=== PATIENT | male | born 1945 | race Caucasian/White ===

== ENCOUNTER 2022-04-08 18:19 | Outpatient (RCR) | payer MEDICARE, BC, SELFPAY ==
[2022-04-08 20:11] LABS: PSA Diagnostic* 0.12 ng/mL (0.10-4.00)
== END 2023-03-29 23:00 | disposition home or self-care (01) ==
LOC: LAB 18:19
PROVIDERS: PCP Internal Medicine; Visit Provider Internal Medicine
DX: C61 Malignant neoplasm of prostate (principal)
CPT/HCPCS: 36415; 84153

== ENCOUNTER 2022-04-15 11:40 | Outpatient (CLI) | payer MEDICARE, BC, SELFPAY ==
[2022-04-15 14:01] LABS: Chloride* 98 mmol/L (96-114)
[2022-04-15 14:02] LABS: Potassium* 4.3 mmol/L (3.6-5.1); Sodium* 133 mmol/L (135-149)
[2022-04-15 14:04] LABS: Carbon Dioxide* 28 mmol/L (20-32); Creatinine* 1.2 mg/dL (0.5-1.5); Estimated Glomerular Filt Rate 62 ml/min
[2022-04-15 14:05] LABS: Blood Urea Nitrogen* 18 mg/dL (7-30); Calcium* 9.1 mg/dL (8.4-10.6); Glucose* 283 mg/dL (60-115)
== END 2022-04-15 11:41 | disposition home or self-care (01) ==
PROVIDERS: PCP Family Medicine; Visit Provider Family Medicine
DX: R53.83 Other fatigue (principal); E11.9 Type 2 diabetes mellitus without complications; F41.9 Anxiety disorder, unspecified
CPT/HCPCS: 80048; 84443

== ENCOUNTER 2022-05-07 07:59 | Outpatient (CLI) | payer MEDICARE, BC, SELFPAY | END 2022-05-07 08:00 | disposition home or self-care (01) | PROVIDERS: PCP Family Medicine; Visit Provider Nurse Practitioner Family | DX: E11.622 Type 2 diabetes mellitus with other skin ulcer (principal); I87.312 Chronic venous hypertension (idiopathic) with ulcer of left lower extremity; L97.829 Non-pressure chronic ulcer of other part of left lower leg with unspecified severity; Z79.4 Long term (current) use of insulin | CPT/HCPCS: 11104; 88305; 99213 ==

== ENCOUNTER 2022-05-12 12:14 | Outpatient (CLI) | payer MEDICARE, BC, MEDICAID, SELFPAY | END 2022-05-12 12:15 | disposition home or self-care (01) | LOC: WOUND 12:15 | PROVIDERS: PCP Family Medicine; Visit Provider Nurse Practitioner Family | DX: E11.622 Type 2 diabetes mellitus with other skin ulcer (principal); I87.2 Venous insufficiency (chronic) (peripheral); L97.829 Non-pressure chronic ulcer of other part of left lower leg with unspecified severity | CPT/HCPCS: 99213 ==

== ENCOUNTER 2022-05-19 10:12 | Outpatient (CLI) | payer MEDICARE, BC, MEDICAID, SELFPAY | END 2022-05-19 10:13 | disposition home or self-care (01) | LOC: WOUND 10:12 | PROVIDERS: PCP Family Medicine; Visit Provider Nurse Practitioner Family | DX: E11.622 Type 2 diabetes mellitus with other skin ulcer (principal); I87.2 Venous insufficiency (chronic) (peripheral); I87.312 Chronic venous hypertension (idiopathic) with ulcer of left lower extremity; L97.822 Non-pressure chronic ulcer of other part of left lower leg with fat layer exposed | CPT/HCPCS: 97597 ==

== ENCOUNTER 2022-06-02 09:32 | Outpatient (CLI) | payer MEDICARE, MEDICAID, BC, SELFPAY | END 2022-06-02 09:33 | disposition home or self-care (01) | LOC: WOUND 09:32 | PROVIDERS: PCP Family Medicine; Visit Provider Nurse Practitioner Family | DX: E11.622 Type 2 diabetes mellitus with other skin ulcer (principal); E11.43 Type 2 diabetes mellitus with diabetic autonomic (poly)neuropathy; S99.822A Other specified injuries of left foot, initial encounter; L60.2 Onychogryphosis; L60.0 Ingrowing nail; L60.3 Nail dystrophy | CPT/HCPCS: 11730; 99212 ==

== ENCOUNTER 2022-06-16 09:58 | Outpatient (CLI) | payer MEDICARE, MEDICAID, BC, SELFPAY | END 2022-06-16 09:59 | disposition home or self-care (01) | LOC: WOUND 09:59 | PROVIDERS: PCP Family Medicine; Visit Provider Nurse Practitioner Family | DX: E11.621 Type 2 diabetes mellitus with foot ulcer (principal); E11.43 Type 2 diabetes mellitus with diabetic autonomic (poly)neuropathy; S99.822A Other specified injuries of left foot, initial encounter; R05.3 Chronic cough | CPT/HCPCS: 97597 ==

== ENCOUNTER 2022-07-07 14:52 | Outpatient (CLI) | payer MEDICARE, MEDICAID, BC, SELFPAY | END 2022-07-07 14:53 | disposition home or self-care (01) | LOC: WOUND 14:54 | PROVIDERS: PCP Family Medicine; Visit Provider Nurse Practitioner Family | DX: E11.621 Type 2 diabetes mellitus with foot ulcer (principal); E11.43 Type 2 diabetes mellitus with diabetic autonomic (poly)neuropathy; S99.822A Other specified injuries of left foot, initial encounter; Z79.4 Long term (current) use of insulin | CPT/HCPCS: 99213 ==

== ENCOUNTER 2022-09-11 08:01 | Outpatient (CLI) | payer MEDICARE, MEDICAID, BC, SELFPAY | END 2022-09-11 08:02 | disposition home or self-care (01) | LOC: WOUND 08:01 | PROVIDERS: PCP Family Medicine; Visit Provider Physician Assistant Surgical | DX: E11.621 Type 2 diabetes mellitus with foot ulcer (principal); L97.522 Non-pressure chronic ulcer of other part of left foot with fat layer exposed; Z79.4 Long term (current) use of insulin | CPT/HCPCS: 11042 ==

== ENCOUNTER 2022-09-18 09:54 | Outpatient (CLI) | payer MEDICARE, BC, MEDICAID, SELFPAY | END 2022-09-18 09:55 | disposition home or self-care (01) | LOC: WOUND 09:55 | PROVIDERS: PCP Family Medicine; Visit Provider Physician Assistant Surgical | DX: E11.621 Type 2 diabetes mellitus with foot ulcer (principal); L97.522 Non-pressure chronic ulcer of other part of left foot with fat layer exposed; Z79.4 Long term (current) use of insulin | CPT/HCPCS: 11042 ==

== ENCOUNTER 2022-11-20 07:58 | Outpatient (CLI) | payer MEDICARE, MEDICAID, BC, SELFPAY | END 2022-11-20 07:59 | disposition home or self-care (01) | LOC: WOUND 07:58 | PROVIDERS: PCP Family Medicine; Visit Provider Physician Assistant Surgical | DX: E11.621 Type 2 diabetes mellitus with foot ulcer (principal); L97.522 Non-pressure chronic ulcer of other part of left foot with fat layer exposed; Z79.4 Long term (current) use of insulin | CPT/HCPCS: 11042; 99213 ==

== ENCOUNTER 2022-11-27 08:02 | Outpatient (CLI) | payer MEDICARE, MEDICAID, BC, SELFPAY | END 2022-11-27 08:03 | disposition home or self-care (01) | LOC: WOUND 08:02 | PROVIDERS: PCP Family Medicine; Visit Provider Physician Assistant Surgical | DX: E11.621 Type 2 diabetes mellitus with foot ulcer (principal); L97.522 Non-pressure chronic ulcer of other part of left foot with fat layer exposed; Z79.4 Long term (current) use of insulin | CPT/HCPCS: 11042 ==

== ENCOUNTER 2022-12-04 10:06 | Outpatient (CLI) | payer MEDICARE, MEDICAID, BC, SELFPAY | END 2022-12-04 10:07 | disposition home or self-care (01) | LOC: WOUND 10:06 | PROVIDERS: PCP Family Medicine; Visit Provider Physician Assistant Surgical | DX: E11.621 Type 2 diabetes mellitus with foot ulcer (principal); L97.522 Non-pressure chronic ulcer of other part of left foot with fat layer exposed; Z79.4 Long term (current) use of insulin | CPT/HCPCS: 11042 ==

== ENCOUNTER 2022-12-18 09:58 | Outpatient (CLI) | payer MEDICARE, MEDICAID, BC, SELFPAY | END 2022-12-18 09:59 | disposition home or self-care (01) | LOC: WOUND 09:58 | PROVIDERS: PCP Family Medicine; Visit Provider Physician Assistant Surgical | DX: E11.621 Type 2 diabetes mellitus with foot ulcer (principal); L97.521 Non-pressure chronic ulcer of other part of left foot limited to breakdown of skin; Z79.4 Long term (current) use of insulin | CPT/HCPCS: 97602; 99213 ==

== ENCOUNTER 2022-12-31 08:35 | Outpatient (CLI) | payer MEDICARE, BC, SELFPAY | END 2022-12-31 08:36 | disposition home or self-care (01) | LOC: NFLDREF 01-04 11:09 | PROVIDERS: PCP Family Medicine; Referring Provider Family Medicine; Visit Provider Family Medicine | DX: E78.5 Hyperlipidemia, unspecified (principal) | CPT/HCPCS: 80061 ==

== ENCOUNTER 2023-02-10 12:18 | Outpatient (REF) | payer MEDICARE, BC, SELFPAY ==
[2023-02-10 13:31] LABS: PSA Diagnostic* 0.14 ng/mL (0.10-4.00)
== END 2023-02-10 12:19 | disposition home or self-care (01) ==
LOC: NPINS 12:18
PROVIDERS: PCP Family Medicine; Visit Provider Internal Medicine
DX: C61 Malignant neoplasm of prostate (principal)
CPT/HCPCS: 84153

== ENCOUNTER 2023-04-01 08:08 | Outpatient (CLI) | payer MEDICARE, BC, MEDICAID, SELFPAY | END 2023-04-01 08:09 | disposition home or self-care (01) | LOC: WOUND 08:09 | PROVIDERS: PCP Family Medicine; Visit Provider Nurse Practitioner Family | DX: E11.621 Type 2 diabetes mellitus with foot ulcer (principal); L97.512 Non-pressure chronic ulcer of other part of right foot with fat layer exposed; Z79.4 Long term (current) use of insulin | CPT/HCPCS: 97597; 99213 ==

== ENCOUNTER 2023-04-13 10:35 | Outpatient (CLI) | payer MEDICARE, BC, MEDICAID, SELFPAY | END 2023-04-13 10:36 | disposition home or self-care (01) | LOC: WOUND 10:36 | PROVIDERS: PCP Family Medicine; Visit Provider Nurse Practitioner Family | DX: E11.621 Type 2 diabetes mellitus with foot ulcer (principal); L97.512 Non-pressure chronic ulcer of other part of right foot with fat layer exposed; Z79.4 Long term (current) use of insulin | CPT/HCPCS: 11042 ==

== ENCOUNTER 2023-04-26 09:47 | Outpatient (CLI) | payer MEDICARE, BC, MEDICAID, SELFPAY | END 2023-04-26 09:48 | disposition home or self-care (01) | LOC: WOUND 09:47 | PROVIDERS: PCP Family Medicine; Visit Provider Nurse Practitioner Family | DX: E11.621 Type 2 diabetes mellitus with foot ulcer (principal); L97.512 Non-pressure chronic ulcer of other part of right foot with fat layer exposed; Z79.4 Long term (current) use of insulin | CPT/HCPCS: 11042 ==

== ENCOUNTER 2023-05-11 10:04 | Outpatient (CLI) | payer MEDICARE, BC, MEDICAID, SELFPAY | END 2023-05-11 10:05 | disposition home or self-care (01) | LOC: WOUND 10:04 | PROVIDERS: PCP Family Medicine; Visit Provider Nurse Practitioner Family | DX: E11.621 Type 2 diabetes mellitus with foot ulcer (principal); L97.512 Non-pressure chronic ulcer of other part of right foot with fat layer exposed; Z79.4 Long term (current) use of insulin | CPT/HCPCS: 11042 ==

== ENCOUNTER 2023-05-25 10:05 | Outpatient (CLI) | payer MEDICARE, BC, MEDICAID, SELFPAY | END 2023-05-25 10:06 | disposition home or self-care (01) | LOC: WOUND 10:06 | PROVIDERS: PCP Family Medicine; Visit Provider Nurse Practitioner Family | DX: E11.621 Type 2 diabetes mellitus with foot ulcer (principal); L97.512 Non-pressure chronic ulcer of other part of right foot with fat layer exposed; Z79.4 Long term (current) use of insulin | CPT/HCPCS: 97597 ==

== ENCOUNTER 2023-06-08 10:07 | Outpatient (CLI) | payer MEDICARE, MEDICAID, BC, SELFPAY | END 2023-06-08 10:08 | disposition home or self-care (01) | LOC: WOUND 10:08 | PROVIDERS: PCP Family Medicine; Visit Provider Nurse Practitioner Family | DX: E11.621 Type 2 diabetes mellitus with foot ulcer (principal); L97.512 Non-pressure chronic ulcer of other part of right foot with fat layer exposed; Z79.4 Long term (current) use of insulin | CPT/HCPCS: 97597 ==

== ENCOUNTER 2023-06-22 09:57 | Outpatient (CLI) | payer MEDICARE, BC, MEDICAID, SELFPAY | END 2023-06-22 09:58 | disposition home or self-care (01) | LOC: WOUND 09:58 | PROVIDERS: PCP Family Medicine; Visit Provider Nurse Practitioner Family | DX: E11.621 Type 2 diabetes mellitus with foot ulcer (principal); L97.512 Non-pressure chronic ulcer of other part of right foot with fat layer exposed; Z79.4 Long term (current) use of insulin | CPT/HCPCS: 97597 ==

== ENCOUNTER 2023-07-06 10:03 | Outpatient (CLI) | payer MEDICARE, BC, MEDICAID, SELFPAY | END 2023-07-06 10:04 | disposition home or self-care (01) | LOC: WOUND 10:03 | PROVIDERS: PCP Family Medicine; Visit Provider Nurse Practitioner Family | DX: E11.621 Type 2 diabetes mellitus with foot ulcer (principal); L97.512 Non-pressure chronic ulcer of other part of right foot with fat layer exposed; Z79.4 Long term (current) use of insulin | CPT/HCPCS: 97597 ==

== ENCOUNTER 2023-07-20 10:08 | Outpatient (CLI) | payer MEDICARE, BC, MEDICAID, SELFPAY | END 2023-07-20 10:09 | disposition home or self-care (01) | LOC: WOUND 10:08 | PROVIDERS: PCP Family Medicine; Visit Provider Nurse Practitioner Family | DX: E11.621 Type 2 diabetes mellitus with foot ulcer (principal); L97.512 Non-pressure chronic ulcer of other part of right foot with fat layer exposed; Z79.4 Long term (current) use of insulin | CPT/HCPCS: 11042 ==

== ENCOUNTER 2023-07-26 11:49 | Outpatient (CLI) | payer MEDICARE, BC, SELFPAY | END 2023-07-26 11:50 | disposition home or self-care (01) | PROVIDERS: PCP Family Medicine; Visit Provider Family Medicine | DX: E78.2 Mixed hyperlipidemia (principal); E66.9 Obesity, unspecified; E11.610 Type 2 diabetes mellitus with diabetic neuropathic arthropathy | CPT/HCPCS: 80048 ==

== ENCOUNTER 2023-08-03 10:04 | Outpatient (CLI) | payer MEDICARE, BC, MEDICAID, SELFPAY | END 2023-08-03 10:05 | disposition home or self-care (01) | LOC: WOUND 10:05 | PROVIDERS: PCP Family Medicine; Visit Provider Nurse Practitioner Family | DX: E11.621 Type 2 diabetes mellitus with foot ulcer (principal); L97.512 Non-pressure chronic ulcer of other part of right foot with fat layer exposed; Z79.4 Long term (current) use of insulin | CPT/HCPCS: 15271; 15275; Q4151 ==

== ENCOUNTER 2023-08-17 09:58 | Outpatient (CLI) | payer MEDICARE, BC, MEDICAID, SELFPAY | END 2023-08-17 09:59 | disposition home or self-care (01) | LOC: WOUND 09:59 | PROVIDERS: PCP Family Medicine; Visit Provider Nurse Practitioner Family | DX: E11.621 Type 2 diabetes mellitus with foot ulcer (principal); L97.512 Non-pressure chronic ulcer of other part of right foot with fat layer exposed; Z79.4 Long term (current) use of insulin | CPT/HCPCS: 15275; Q4151 ==

== ENCOUNTER 2023-08-26 11:08 | Outpatient (CLI) | payer MEDICARE, BC, MEDICAID, SELFPAY | END 2023-08-26 11:09 | disposition home or self-care (01) | LOC: WOUND 11:08 | PROVIDERS: PCP Family Medicine; Visit Provider Nurse Practitioner Family | DX: E11.621 Type 2 diabetes mellitus with foot ulcer (principal); L97.512 Non-pressure chronic ulcer of other part of right foot with fat layer exposed; Z79.4 Long term (current) use of insulin | CPT/HCPCS: 29581 ==

== ENCOUNTER 2023-09-14 09:58 | Outpatient (CLI) | payer MEDICARE, BC, SELFPAY | END 2023-09-14 09:59 | disposition home or self-care (01) | LOC: WOUND 09:58 | PROVIDERS: PCP Family Medicine; Visit Provider Nurse Practitioner Family | DX: E11.621 Type 2 diabetes mellitus with foot ulcer (principal); L97.512 Non-pressure chronic ulcer of other part of right foot with fat layer exposed; L08.89 Other specified local infections of the skin and subcutaneous tissue; B95.2 Enterococcus as the cause of diseases classified elsewhere; Z79.4 Long term (current) use of insulin | CPT/HCPCS: 87070; 87186; 97597 ==

== ENCOUNTER 2023-09-16 12:24 | Outpatient (CLI) | payer MEDICARE, BC, SELFPAY | END 2023-09-16 12:25 | disposition home or self-care (01) | LOC: FBOREF 12:24 | PROVIDERS: PCP Family Medicine; Visit Provider Family Medicine | DX: E78.2 Mixed hyperlipidemia (principal) | CPT/HCPCS: 80061 ==

== ENCOUNTER 2023-11-16 08:11 | Outpatient (CLI) | payer MEDICARE, BC, SELFPAY | END 2023-11-16 08:12 | disposition home or self-care (01) | LOC: WOUND 08:11 | PROVIDERS: PCP Family Medicine; Visit Provider Nurse Practitioner Family | DX: E11.621 Type 2 diabetes mellitus with foot ulcer (principal); L97.512 Non-pressure chronic ulcer of other part of right foot with fat layer exposed; L97.518 Non-pressure chronic ulcer of other part of right foot with other specified severity; Z79.4 Long term (current) use of insulin | CPT/HCPCS: 11042; 97602; G0463 ==

== ENCOUNTER 2023-11-23 11:41 | Outpatient (CLI) | payer MEDICARE, BC, SELFPAY | END 2023-11-23 11:42 | disposition home or self-care (01) | LOC: WOUND 11:41 | PROVIDERS: PCP Family Medicine; Visit Provider Physician Assistant | DX: E11.621 Type 2 diabetes mellitus with foot ulcer (principal); L97.512 Non-pressure chronic ulcer of other part of right foot with fat layer exposed; Z79.4 Long term (current) use of insulin | CPT/HCPCS: 11042 ==

== ENCOUNTER 2023-11-30 13:32 | Outpatient (CLI) | payer MEDICARE, BC, SELFPAY | END 2023-11-30 13:33 | disposition home or self-care (01) | LOC: WOUND 13:33 | PROVIDERS: PCP Family Medicine; Visit Provider Nurse Practitioner Family | DX: E11.621 Type 2 diabetes mellitus with foot ulcer (principal); L97.512 Non-pressure chronic ulcer of other part of right foot with fat layer exposed; Z79.4 Long term (current) use of insulin | CPT/HCPCS: 11042 ==

== ENCOUNTER 2023-12-07 11:35 | Outpatient (CLI) | payer MEDICARE, BC, SELFPAY | END 2023-12-07 11:36 | disposition home or self-care (01) | LOC: WOUND 11:36 | PROVIDERS: PCP Family Medicine; Visit Provider Nurse Practitioner Family | DX: E11.621 Type 2 diabetes mellitus with foot ulcer (principal); L97.512 Non-pressure chronic ulcer of other part of right foot with fat layer exposed; Z79.4 Long term (current) use of insulin | CPT/HCPCS: 15275; Q4151 ==

== ENCOUNTER 2023-12-14 09:04 | Outpatient (CLI) | payer MEDICARE, BC, SELFPAY | END 2023-12-14 09:05 | disposition home or self-care (01) | LOC: WOUND 09:04 | PROVIDERS: PCP Family Medicine; Visit Provider Nurse Practitioner Family | DX: E11.621 Type 2 diabetes mellitus with foot ulcer (principal); L97.512 Non-pressure chronic ulcer of other part of right foot with fat layer exposed; Z79.4 Long term (current) use of insulin | CPT/HCPCS: 97597 ==

== ENCOUNTER 2023-12-21 14:11 | Outpatient (CLI) | payer MEDICARE, BC, SELFPAY | END 2023-12-21 14:12 | disposition home or self-care (01) | LOC: WOUND 14:11 | PROVIDERS: PCP Family Medicine; Visit Provider Nurse Practitioner Family | DX: E11.621 Type 2 diabetes mellitus with foot ulcer (principal); L97.512 Non-pressure chronic ulcer of other part of right foot with fat layer exposed; Z79.4 Long term (current) use of insulin | CPT/HCPCS: 11042 ==

== ENCOUNTER 2023-12-28 14:03 | Outpatient (CLI) | payer MEDICARE, BC, SELFPAY | END 2023-12-28 14:04 | disposition home or self-care (01) | LOC: WOUND 14:03 | PROVIDERS: PCP Family Medicine; Visit Provider Nurse Practitioner Family | DX: E11.621 Type 2 diabetes mellitus with foot ulcer (principal); L97.512 Non-pressure chronic ulcer of other part of right foot with fat layer exposed; Z79.4 Long term (current) use of insulin | CPT/HCPCS: 11042 ==

== ENCOUNTER 2024-01-04 13:54 | Outpatient (CLI) | payer MEDICARE, BC, SELFPAY | END 2024-01-04 13:55 | disposition home or self-care (01) | LOC: WOUND 13:54 | PROVIDERS: PCP Family Medicine; Visit Provider Nurse Practitioner Family | DX: E11.621 Type 2 diabetes mellitus with foot ulcer (principal); L97.512 Non-pressure chronic ulcer of other part of right foot with fat layer exposed; Z79.4 Long term (current) use of insulin; Z79.85 Long-term (current) use of injectable non-insulin antidiabetic drugs | CPT/HCPCS: 97597 ==

== ENCOUNTER 2024-01-11 14:10 | Outpatient (CLI) | payer MEDICARE, BC, SELFPAY | END 2024-01-11 14:11 | disposition home or self-care (01) | LOC: WOUND 14:10 | PROVIDERS: PCP Family Medicine; Visit Provider Nurse Practitioner Family | DX: E11.621 Type 2 diabetes mellitus with foot ulcer (principal); L97.512 Non-pressure chronic ulcer of other part of right foot with fat layer exposed; Z79.4 Long term (current) use of insulin | CPT/HCPCS: 97597 ==

== ENCOUNTER 2024-01-18 13:56 | Outpatient (CLI) | payer MEDICARE, BC, SELFPAY | END 2024-01-18 13:57 | disposition home or self-care (01) | LOC: WOUND 13:56 | PROVIDERS: PCP Family Medicine; Visit Provider Nurse Practitioner Family | DX: E11.621 Type 2 diabetes mellitus with foot ulcer (principal); L97.512 Non-pressure chronic ulcer of other part of right foot with fat layer exposed; Z79.4 Long term (current) use of insulin | CPT/HCPCS: 97602; G0463 ==

== ENCOUNTER 2024-01-25 14:08 | Outpatient (CLI) | payer MEDICARE, BC, SELFPAY | END 2024-01-25 14:09 | disposition home or self-care (01) | LOC: WOUND 14:08 | PROVIDERS: PCP Family Medicine; Visit Provider Family Medicine | DX: E11.621 Type 2 diabetes mellitus with foot ulcer (principal); L97.512 Non-pressure chronic ulcer of other part of right foot with fat layer exposed; Z79.4 Long term (current) use of insulin | CPT/HCPCS: G0463 ==

== ENCOUNTER 2024-02-01 14:06 | Outpatient (CLI) | payer MEDICARE, BC, SELFPAY | END 2024-02-01 14:07 | disposition home or self-care (01) | LOC: WOUND 14:06 | PROVIDERS: PCP Family Medicine; Visit Provider Nurse Practitioner Family | DX: E11.621 Type 2 diabetes mellitus with foot ulcer (principal); L97.512 Non-pressure chronic ulcer of other part of right foot with fat layer exposed; Z79.4 Long term (current) use of insulin | CPT/HCPCS: 97597 ==

== ENCOUNTER 2024-02-07 14:27 | Outpatient (CLI) | payer MEDICARE, BC, SELFPAY | END 2024-02-07 14:28 | disposition home or self-care (01) | LOC: FBOREF 14:28 | PROVIDERS: PCP Family Medicine; Visit Provider Family Medicine | DX: C61 Malignant neoplasm of prostate (principal) | CPT/HCPCS: 84153 ==

== ENCOUNTER 2024-02-08 14:38 | Outpatient (CLI) | payer MEDICARE, BC, SELFPAY | END 2024-02-08 14:39 | disposition home or self-care (01) | LOC: WOUND 14:38 | PROVIDERS: PCP Family Medicine; Visit Provider Nurse Practitioner Family | DX: E11.621 Type 2 diabetes mellitus with foot ulcer (principal); L97.518 Non-pressure chronic ulcer of other part of right foot with other specified severity; Z79.4 Long term (current) use of insulin | CPT/HCPCS: 97602; G0463 ==

== ENCOUNTER 2024-02-15 14:00 | Outpatient (CLI) | payer MEDICARE, BC, SELFPAY | END 2024-02-15 14:01 | disposition home or self-care (01) | LOC: WOUND 14:01 | PROVIDERS: PCP Family Medicine; Visit Provider Nurse Practitioner Family | DX: E11.621 Type 2 diabetes mellitus with foot ulcer (principal); L97.512 Non-pressure chronic ulcer of other part of right foot with fat layer exposed; Z79.4 Long term (current) use of insulin | CPT/HCPCS: G0463 ==

== ENCOUNTER 2024-02-26 19:08 | Emergency (ER) | payer MEDICARE, BC, SELFPAY ==
[2024-02-26] VITALS (16 sets, daily range): BP systolic 106–145; BP diastolic 66–74; PULSE 50–80; RESP 16–18; TEMP 36.4; O2SAT 89–95; BMI 34.3
--- NOTE | 2024-02-26 19:37 | ED_ITS ---
HPI - General Adult General Time Seen by Provider: 19:37 <Jenny Rush MD - Last Filed: 02/26/24 21:38> Date Seen: 02/26/24 <Jenny Rush MD - Last Filed: 02/26/24 21:38> Chief complaint: Weakness <Jenny Rush MD - Last Filed: 02/26/24 21:38> Stated complaint: Lethargy, low BP/pulse <Jenny Rush MD - Last Filed: 02/26/24 21:38> Time Seen by Provider: 02/26/24 19:18 <Jenny Rush MD - Last Filed: 02/26/24 21:38> Source: patient, family and RN notes reviewed <Jenny Rush MD - Last F iled: 02/26/24 21:38> Mode of arrival: ambulatory <Jenny Rush MD - Last Filed: 02/26/24 21:38> Limitations: no limitations <Jenny Rush MD - Last Filed: 02/26/24 21:38> History of Present Illness HPI narrative: This 78-year-old male is accompanied by his clifton for weakness in low blood pressure at home. He was started on tirzepatide injectable about a month ago, took a total of 4 doses. Has not taken a does since a week and a half ago on Wednesday due to its side effects of significant abdominal pain. He had some diarrhea on Wednesday or of this past week but has subsequently stopped. He lost about 17 lb while taking this medicine and his sugars did improve. His notes that he has just been sleeping lately. They have noted no fevers. He is not having any abdominal pain at this time. He has had no nausea or vomiting, when taking the medication did have significantly diminished appetite but was able to still drink. She states he has been sleeping a lot recently. He basically slept most the day. When he got up, felt weak. He did come down the stairs and nearly collapsed going down the stairs he felt so weak. Again, denies any pain. There has been no fevers. He states he is feeling better now. His took his blood pressure at home after this happened and it was in the low 100s for his systolic. <Jenny Rush MD - Last Filed: 02/26/24 21:38> Related Data Home medications: Home Medications ?Medication ?Instructions ?Recorded ?Confirmed ascorbic acid (vitamin C) 1,000 mg 1,000 mg PO DAILY 04/14/22 02/26/24 tablet aspirin 81 mg tablet,delayed 81 mg PO DAILY 04/14/22 02/26/24 release calcium carbonate 600 mg PO DAILY 04/14/22 02/26/24 cholecalciferol (vitamin D3) 25 25 mcg PO QDAY 04/14/22 02/26/24 mcg (1,000 unit) tablet riboflavin (vitamin B2) 50 mg 50 mg PO QDAY 04/15/22 02/26/24 tablet insulin glargine 100 unit/mL (3 60 unit subcut QPM 12/30/23 02/26/24 mL) subcutaneous pen (Basaglar KwikPen U-100 Insulin) Previous Rx's ?Medication ?Instructions ?Recorded oxybutynin chloride 10 mg 10 mg PO DAILY #90 tabs 12/25/22 tablet,extended release 24 hr pen needle, diabetic 31 gauge x #100 ea 12/28/2201/12 (UltiCare Pen Needle) naproxen 500 mg tablet 500 mg PO BID PRN pain #180 tabs 01/06/23 blood-glucose meter,continuous #1 ea 04/16/23 (Dexcom G6 Tile Layer) duloxetine 60 mg capsule,delayed 60 mg PO QDAY #90 caps 07/26/23 release blood-glucose sensor (Dexcom G6 #9 ea 08/05/23 Sensor device) sennosides 8.6 mg-docusate sodium 2 tab-cap (2 x 8.6-50 mg) PO QHS 09/06/23 50 mg tablet #180 tabs blood-glucose transmitter (Dexcom #1 ea 09/17/23 G6 Transmitter device) insulin aspart 10 - 30 unit subcut TID #60 mL 12/10/23 (niacinamide)(U-100) 100 unit/mL(3 mL) subcutaneous pen (Fiasp FlexTouch U-100 Insulin) zolpidem 10 mg tablet 10 mg PO QHS PRN insomnia #90 tabs 12/10/23 atorvastatin 80 mg tablet 80 mg PO QHS #90 tabs 12/14/23 qesezshjeh-kwecqrcdocflt-vpsdlhwi 1 cap PO Q8H PRN pain #30 caps 02/07/24 50 mg-300 mg-40 mg capsule (Fioricet) pregabalin 150 mg capsule 150 mg PO QHS #90 caps 02/07/24 tirzepatide 5 mg/0.5 mL 5 mg (0.5 mL) subcut QWEEK #2 mL 02/07/24 subcutaneous pen injector (Mounjaro) <Jenny Rush MD - Last Filed: 02/26/24 21:38> Allergies/adverse reactions: Allergies Allergy/AdvReac Type Severity Reaction Status Date / Time No Known Drug Allergies Allergy Verified 02/26/24 19:20 <Jenny uRsh MD - Last Filed: 02/26/24 21:38> Review of Systems Status of ROS: Reports: 6 or more systems reviewed and unremarkable except as noted in History and below <Jenny Rush MD - Last Filed: 02/26/24 21:38> [facility] Medical History: Medical History Type 2 diabetes mellitus, with long-term current use of insulin ?E11.9 - Type 2 diabetes mellitus without complications (ICD-10) ?Z79.4 - [facility] (current) use of insulin (ICD-10) COVID-19 ?U07.1 - COVID-19 (ICD-10) Mixed hyperlipidemia ?E78.2 - Mixed hyperlipidemia (ICD-10) Incontinence of urine ?R32 - Unspecified urinary incontinence (ICD-10) Chronic constipation ?K59.09 - Other constipation (ICD-10) 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 (01/03/20) ?E11.610 - Type 2 diabetes mellitus with diabetic neuropathic arthropathy (ICD-10) Traumatic brain injury (2016) ?S06.9X9A - Unspecified intracranial injury with loss of consciousness of unspecified duration, initial encounter (ICD-10) Tobacco use (02/27/13) ?Z72.0 - Tobacco use (ICD-10) Peripheral vascular disease ?I73.9 - Peripheral vascular disease, unspecified (ICD-10) Obesity with body mass index greater than 30 ?E66.9 - Obesity, unspecified (ICD-10) Malignant neoplasm of prostate ?C61 - Malignant neoplasm of prostate (ICD-10) Ischemic stroke (02/2008) ?I63.9 - Cerebral infarction, unspecified (ICD-10) Ischemic necrosis of foot ?I96 - Gangrene, not elsewhere classified (ICD-10) Insomnia ?G47.00 - Insomnia, unspecified (ICD-10) History of traumatic brain injury ?Z87.820 - Personal history of traumatic brain injury (ICD-10) History of transient ischemic attack ?Z86.73 - Personal history of transient ischemic attack (TIA), and cerebral infarction without residual deficits (ICD-10) History of suicidal ideation ?Z86.59 - Personal history of other mental and behavioral disorders (ICD-10) Diabetic ulcer of right midfoot (10/28/17) ?E11.621 - Type 2 diabetes mellitus with foot ulcer (ICD-10) ?L97.419 - Non-pressure chronic ulcer of right heel and midfoot with unspecified severity (ICD-10) Diabetic retinopathy ?E11.319 - Type 2 diabetes mellitus with unspecified diabetic retinopathy without macular edema (ICD-10) Diabetic neuropathy (12/02/12) ?E11.40 - Type 2 diabetes mellitus with diabetic neuropathy, unspecified (ICD-10) Chronic pain ?G89.29 - Other chronic pain (ICD-10) Anxiety (02/27/13) ?F41.9 - Anxiety disorder, unspecified (ICD-10) <Jenny Rush MD - Last Filed: 02/26/24 21:38> Surgical History: Surgical History History of amputation of hallux ?Z89.419 - Acquired absence of unspecified great toe (ICD-10) <Jenny Rush MD - Last Filed: 02/26/24 21:38> Social History: Social History Narrative: , retired, nonsmoker What is your current living situation?: I presently have a place to live Problems where you live: no known problems In the past 12 months, utilities in danger of being shut off: no In past 12 months, lack of transportation kept you from medical appts, meetings, work, or getting things needed for daily living: no In the past 12 mos, have been you worried that your food would run out before you had money to buy more?: never true In the past 12 mos, the food you bought just didn't last and you didn't have money to buy more?: never true Smoking Status: Former smoker How often do you have a drink containing alcohol: monthly or less AUDIT-C Alcohol total score: 1 Non-prescribed substance use: denies use How often does anyone, including family, friends and others, physically hurt you : never How often does anyone, including family, friends and others, insult or talk down to you: never How often does anyone, including family, friends and others, threaten you with harm: never How often does anyone, including family, friends and others, scream or curse at you: never Little interest or pleasure in doing things: more than half the days Feeling down, depressed, or hopeless: not at all <Jenny Rush MD - Last Filed: 02/26/24 21:38> Exam Const: Vital Signs, click to edit/add: Vital Signs - 24 hr 02/26/24 19:15 02/26/24 19:48 Temperature 97.6 F Pulse Rate [Right Pulse Oximeter] 80 Respiratory Rate 18 Blood Pressure [Ri ght Upper Arm] 122/74 Pulse Oximetry 95 92 Oxygen Delivery Me thod Room Air <Jenny Rush MD - Last Filed: 02/26/24 21:38> Vital Signs, click to edit/add: Vital Signs - 24 hr 02/26/24 19:15 02/26/24 19:48 Temperature 97.6 F Pulse Rate [Right Pulse Oximeter] 80 Respiratory Rate 18 Blood Pressure [Ri ght Upper Arm] 122/74 Pulse Oximetry 95 92 Oxygen Delivery Me thod Room Air <Yoan Porras MD - Last Filed: 02/26/24 22:21> Documenting provider has reviewed patient's vital signs: yes <Jenny Rush MD - Last Filed: 02/26/24 21:38> Common normals: no apparent distress, oriented x3, no limitations and alert (but appears tired, stays awake during exam) <Jenny Rush MD - Last Filed: 02/26/24 21:38> General appearance: cooperative, comfortable, well kempt and well developed <Jenny Rush MD - Last Filed: 02/26/24 21:38> Nutritional appearance: overweight <Jenny Rush MD - Last Filed: 02/26/24 21:38> Orientation/consciousness: Yes awake, Yes oriented to person, Yes oriented to place and Yes oriented to time <Jenny Rush MD - Last Filed: 02/26/24 21:38> HENMT: Common normals: normocephalic, head/scalp atraumatic, hearing grossly normal bilaterally, external ears normal and external nose normal <Jenny Rush MD - Last Filed: 02/26/24 21:38> Head and scalp: normocephalic and atraumatic <Jenny Rush MD - Last Filed: 02/26/24 21:38> Face and sinus: normal facial exam and face symmetric <Jenny Suárez MD - Last Filed: 02/26/24 21:38> Nose: external nose normal and nares normal <MD Eran Ogden Last Filed: 02/26/24 21:38> External ear: external ears normal <Jenny Rush MD - Last Filed: 02/26/24 21:38> Mouth: oral and palatal mucosa normal, lip normal and tongue normal <MD Eran Ogden Last Filed: 02/26/24 21:38> Eye: Common normals: PERRL, EOMs intact bilaterally, conjunctivae normal and no scleral icterus <Jenny Rush MD - Last Filed: 02/26/24 21:38> General eye: normal appearance of both eyes <Jenny Rush MD - Last Filed: 02/26/24 21:38> Conjunctiva: conjunctiva(e) normal <Jenny Rush MD - Last Filed: 02/26/24 21:38> Pupil: PERRL <Jenny Rush MD - Last Filed: 02/26/24 21:38> Neck & C-Spine: Common normals: full ROM, no lymphadenopathy, supple, no meningeal signs, no JVD and thyroid normal <Jenny Rush MD - Last Filed: 02/26/24 21:38> Thyroid: thyroid normal <Jenny Rush MD - Last Filed: 02/26/24 21:38> Resp: Common normals: normal respiratory effort, no retractions, no use of accessory muscles, clear to auscultation bilaterally and percussion normal <Jenny Rush MD - Last Filed: 02/26/24 21:38> Auscultation: clear to auscultation bilaterally <Jenny Rush MD - Last Filed: 02/26/24 21:38> Percussion: percussion normal <Jenny Rush MD - Last Filed: 02/26/24 21:38> Cardio: Common normals: no JVD, regular rate, regular rhythm, S1 normal heart sound, S2 normal heart sound, no gallops and no clicks <Jenny Suárez MD - Last Filed: 02/26/24 21:38> Rate: regular rate <Jenny Rush MD - Last Filed: 02/26/24 21:38> Rhythm: regular rhythm <Jenny Rush MD - Last Filed: 02/26/24 21:38> Heart sounds: S1 normal, S2 normal and murmur (soft) systolic <Jenny Rush MD - Last Filed: 02/26/24 21:38> GI: Common normals: Normal to inspection, nondistended, normoactive bowel sounds present, soft to palpation, non-tender, no hepatosplenomegaly and no masses <Jenny Rush MD - Last Filed: 02/26/24 21:38> Palpation: soft and no hepatosplenomegaly <Jenny Rush MD - Last Filed: 02/26/24 21:38> Extremity: Other: right Charcot foot, bandage on lower lateral left leg without surrounding erythema. <Jenny Rush MD - Last Filed: 02/26/24 21:38> Neuro: Isabela Coma Scale: document GCS findings Isabela coma scale eye opening: Spontaneous (4) Isabela coma scale verbal response: Orientated (5) Isabela coma scale motor response: Obey commands (6) [place] coma scale total s core: 15 <Jenny Rush MD - Last Filed: 02/26/24 21:38> [place] Coma Scale: document GCS findings Isabela coma scale total score: 15 <Yoan Porras MD - Last Filed: 02/26/24 22:21> Common normals: oriented x3, moves all extremities and no focal motor deficits <Jenny Rush MD - Last Filed: 02/26/24 21:38> Sensorium/orientation: awake, alert (but appears tired, stays awake during exam), oriented to person, oriented to place and oriented to time <Jenny Rush MD - Last Filed: 02/26/24 21:38> Meningeal signs: no meningeal signs <Jenny Rush MD - Last Filed: 02/26/24 21:38> Psych: Appearance: well kempt <Jenny Rush MD - Last Filed: 02/26/24 21:38> Course Course ED Course: This patient has generalized weakness without any focal symptoms of infection. He has been on 1 of the new weight loss injectables and having symptoms from it. Will do full complement of labs. He is not having any pain anywhere, do not see indication for any imaging at this time. Have recommended that we do the triple viral swab and they do agree. <Jenny Rush MD - Last Filed: 02/26/24 21:38> Reevaluation(s) Time of Reevaluation #2: 21:20 <Jenny Rush MD - Last Filed: 02/26/24 21:38> Reevaluation #2: Patient was sleeping and 93% with a good waveform on room air but will do portable chest x-ray just as part of a workup for weakness since all other labs are looking normal. Still awaiting the portable chest x-ray. Reviewed with and patient that labs are reassuring at this point. COVID is negative. We can still attempt to collect urinalysis if he can provide 1. Likely to discharge to home unless significant change in his status or further definitive change. <Jenny Rush MD - Last Filed: 02/26/24 21:38> Consultations Consultation #1: UA upon my review does show +leukocyte esterase. Will send that for culture and I did treat him with Bactrim Double Strength for the next 5 days with primary care follow-up. <Yoan Porras MD - Last Filed: 02/26/24 22:21> Vital Signs Vital signs: Initial Vital Signs Temperature 97.6 F 02/26/24 19:15 Temperature Source Temporal Artery Scan 02/26/24 19:15 Pulse Rate 80 02/26/24 19:15 Respiratory Rate 18 02/26/24 19:15 Blood Pressure 122/74 02/26/24 19:15 Blood Pressure Mean 90 02/26/24 19:15 Blood Pressure Position Sitting 02/26/24 19:15 Pulse Oximetry 95 02/26/24 19:15 Oxygen Delivery Method Room Air 02/26/24 19:15 Vital Signs Temperature 97.6 F 02/26/24 19:15 Pulse Rate 80 02/26/24 19:15 Respiratory Rate 18 02/26/24 19:15 Blood Pressure 122/74 02/26/24 19:15 Pulse Oximetry 95 02/26/24 19:15 Oxygen Delivery Method Room Air 02/26/24 19:15 Temperature 97.6 F 02/26/24 19:15 Pulse Rate 80 02/26/24 19:15 Respiratory Rate 18 02/26/24 19:15 Blood Pressure 122/74 02/26/24 19:15 Pulse Oximetry 92 02/26/24 19:48 Oxygen Delivery Method Room Air 02/26/24 19:15 <Jenny Rush MD - Last Filed: 02/26/24 21:38> Initial Vital Signs Temperature 97.6 F 02/26/24 19:15 Temperature Source Temporal Artery Scan 02/26/24 19:15 Pulse Rate 80 02/26/24 19:15 Respiratory Rate 18 02/26/24 19:15 Blood Pressure 122/74 02/26/24 19:15 Blood Pressure Mean 90 02/26/24 19:15 Blood Pressure Position Sitting 02/26/24 19:15 Pulse Oximetry 95 02/26/24 19:15 Oxygen Delivery Method Room Air 02/26/24 19:15 Vital Signs Temperature 97.6 F 02/26/24 19:15 Pulse Rate 80 02/26/24 19:15 Respiratory Rate 18 02/26/24 19:15 Blood Pressure 122/74 02/26/24 19:15 Pulse Oximetry 95 02/26/24 19:15 Oxygen Delivery Method Room Air 02/26/24 19:15 Temperature 97.6 F 02/26/24 19:15 Pulse Rate 80 02/26/24 19:15 Respiratory Rate 18 02/26/24 19:15 Blood Pressure 122/74 02/26/24 19:15 Pulse Oximetry 92 02/26/24 19:48 Oxygen Delivery Method Room Air 02/26/24 19:15 <Yoan Porras MD - Last Filed: 02/26/24 22:21> Medications Administered Medications: Discontinued Medications Generic Name Dose Route Start Last Admin Trade Name Freq PRN Reason Stop Dose Admin Sodium Chloride 1,000 mls @ 500 mls/hr 02/26/24 19:49 02/26/24 20:05 0.9 % Sodium Chloride 1000 Ml IV 02/26/24 21:48 500 mls/hr .Q2H GABRIELA Administration <Jenny Rush MD - Last Filed: 02/26/24 21:38> Discontinued Medications Generic Name Dose Route Start Last Admin Trade Name Freq PRN Reason Stop Dose Admin Sodium Chloride 1,000 mls @ 500 mls/hr 02/26/24 19:49 02/26/24 20:05 0.9 % Sodium Chloride 1000 Ml IV 02/26/24 21:48 500 mls/hr .Q2H GABRIELA Administration <Yoan Porras MD - Last Filed: 02/26/24 22:21> Medical Decision Making Lab Data Lab results reviewed: Yes I reviewed the patient's lab results <Jenny Rush MD - Last Filed: 02/26/24 21:38> Labs: Lab Results 02/26/24 02/26/24 02/26/24 Range/Units 19:53 20:00 21:45 WBC 8.14 (4.50-11.00) K/uL RBC 5.28 (4.30-5.90) m/uL Hgb 16.2 (13.5-17.5) gm/dL Hct 49.6 (37.0-53.0) % MCV 94 (80-100) fL MCH 31 (26-34) pg MCHC 33 (32-36) gm/dL RDW Coeff of Jun 13.2 (11.5-15.5) % Plt Count 177 (140-440) K/uL Neut % (Auto) 59.0 (42.0-72.0) % Lymph % (Auto) 26.7 (20-44) % [place] % (Auto) 8.7 (0.0-11.0) % Eos % (Auto) 5.3 (0.0-7.0) % Baso % (Auto) 0.2 (0.0-3.0) % Neut # (Auto) 4.80 (1.7-7.0) K/uL Lymph # (Auto) 2.17 (0.90-2.90) K/uL [place] # (Auto) 0.70 (0.00-0.90) K/UL Eos # (Auto) 0.43 (0.00-0.50) K/uL Baso # (Auto) 0.02 (0.00-0.30) K/uL Abs Immat Gran (auto) 0.01 (0.00-0.30) K/uL Imm/Tot Granulo (auto) 0.1 % Sodium 133 L (135-149) mmol/L Potassium 4.0 (3.6-5.1) mmol/L Chloride 101 (96-114) mmol/L Carbon Dioxide 26 (20-32) mmol/L Anion Gap 6 L (7-15) mEq/L BUN 25 (7-30) mg/dL Creatinine 1.5 (0.5-1.5) mg/dL Estimated Creat Clear 44.39 Estimated GFR 47 ml/min Glucose 200 H (60-115) mg/dL Lactate 1.6 (0.5-1.9) mmol/L Calcium 9.0 (8.4-10.6) mg/dL Total Bilirubin 1.0 (0.1-1.5) mg/dL AST 26 (12-35) U/L ALT 30 (4-50) U/L Alkaline Phosphatase 60 (40-150) U/L Troponin I < 0.01 L (0.01-0.04) ng/mL C-Reactive Protein < 0.5 L (0.5-1.0) mg/dL NT-Pro-B Natriuret Pep 136 pg/mL Total Protein 6.0 (6.0-8.3) g/dL Albumin 3.6 (3.3-5.0) g/dL Procalcitonin 0.04 (<0.50) ng/mL Urine Color Yellow (Yellow) Urine Appearance Slightly Cloudy A (Clear) Urine pH 5.5 (5.0-8.5) Ur Specific [place] 1.015 (1.000-1.030) Urine Protein Trace A (Negative) Urine Glucose (UA) Negative (Negative) Urine Ketones Trace A (Negative) Urine Blood Negative (Negative) Urine Nitrite Negative (Negative) Urine Bilirubin Negative (Negative) Urine Urobilinogen 0.2 (0.2-1.0) Ur Leukocyte Esterase 1+ A (Negative) Urine RBC 0-2 (0-2) Urine WBC 0-2 (0-5) Ur Squamous Epith Cells None (None-Few) Urine Bacteria None (None) SARS-CoV-2 (PCR) Negative SARS-CoV-2 (Negative) Influenza Type A (PCR) Negative PCR FLU A (Negative) Influenza Type B (PCR) Negative PCR FLU B (Negative) RSV (PCR) Negative PCR RSV (Negative) <Jenny Rush MD - Last Filed: 02/26/24 21:38> Lab Results 02/26/24 02/26/24 02/26/24 Range/Units 19:53 20:00 21:45 WBC 8.14 (4.50-11.00) K/uL RBC 5.28 (4.30-5.90) m/uL Hgb 16.2 (13.5-17.5) gm/dL Hct 49.6 (37.0-53.0) % MCV 94 (80-100) fL MCH 31 (26-34) pg MCHC 33 (32-36) gm/dL RDW Coeff of Jun 13.2 (11.5-15.5) % Plt Count 177 (140-440) K/uL Neut % (Auto) 59.0 (42.0-72.0) % Lymph % (Auto) 26.7 (20-44) % [place] % (Auto) 8.7 (0.0-11.0) % Eos % (Auto) 5.3 (0.0-7.0) % Baso % (Auto) 0.2 (0.0-3.0) % Neut # (Auto) 4.80 (1.7-7.0) K/uL Lymph # (Auto) 2.17 (0.90-2.90) K/uL [place] # (Auto) 0.70 (0.00-0.90) K/UL Eos # (Auto) 0.43 (0.00-0.50) K/uL Baso # (Auto) 0.02 (0.00-0.30) K/uL Abs Immat Gran (auto) 0.01 (0.00-0.30) K/uL Imm/Tot Granulo (auto) 0.1 % Sodium 133 L (135-149) mmol/L Potassium 4.0 (3.6-5.1) mmol/L Chloride 101 (96-114) mmol/L Carbon Dioxide 26 (20-32) mmol/L Anion Gap 6 L (7-15) mEq/L BUN 25 (7-30) mg/dL Creatinine 1.5 (0.5-1.5) mg/dL Estimated Creat Clear 44.39 Estimated GFR 47 ml/min Glucose 200 H (60-115) mg/dL Lactate 1.6 (0.5-1.9) mmol/L Calcium 9.0 (8.4-10.6) mg/dL Total Bilirubin 1.0 (0.1-1.5) mg/dL AST 26 (12-35) U/L ALT 30 (4-50) U/L Alkaline Phosphatase 60 (40-150) U/L Troponin I < 0.01 L (0.01-0.04) ng/mL C-Reactive Protein < 0.5 L (0.5-1.0) mg/dL NT-Pro-B Natriuret Pep 136 pg/mL Total Protein 6.0 (6.0-8.3) g/dL Albumin 3.6 (3.3-5.0) g/dL Procalcitonin 0.04 (<0.50) ng/mL Urine Color Yellow (Yellow) Urine Appearance Slightly Cloudy A (Clear) Urine pH 5.5 (5.0-8.5) Ur Specific [place] 1.015 (1.000-1.030) Urine Protein Trace A (Negative) Urine Glucose (UA) Negative (Negative) Urine Ketones Trace A (Negative) Urine Blood Negative (Negative) Urine Nitrite Negative (Negative) Urine Bilirubin Negative (Negative) Urine Urobilinogen 0.2 (0.2-1.0) Ur Leukocyte Esterase 1+ A (Negative) Urine RBC 0-2 (0-2) Urine WBC 0-2 (0-5) Ur Squamous Epith Cells None (None-Few) Urine Bacteria None (None) SARS-CoV-2 (PCR) Negative SARS-CoV-2 (Negative) Influenza Type A (PCR) Negative PCR FLU A (Negative) Influenza Type B (PCR) Negative PCR FLU B (Negative) RSV (PCR) Negative PCR RSV (Negative) <Yoan Porras MD - Last Filed: 02/26/24 22:21> ECG Data Attestation: I personally reviewed and interpreted this ECG as follows: (Sinus rhythm, 79 beats per minute. PVCs seen. Flat T-waves lateral precordial leads. Flipped T-waves in lead 1 in [address]VL without any ST segment change. No definite infarct seen. QT corrected 467 milliseconds.) <Jenny Rush MD - Last Filed: 02/26/24 21:38> Discharge Plan Discharge Clinical Impression: Weakness, Urinary tract infection <Jenny Rush MD - Last Filed: 02/26/24 21:38> Patient Disposition: Home, Self-Care <Jenny Rush MD - Last Filed: 02/26/24 21:38> Condition: Stable <Jenny Rush MD - Last Filed: 02/26/24 21:38> Instructions: Weakness (ED) <Jenny Rush MD - Last Filed: 02/26/24 21:38> Additional Instructions: Would continue to hold your new diabetic medicine until you have discuss this further with your primary care provider. Do recommend that you are seen within the next week for recheck with your primary care provider. If you do develop specific symptoms such as a fever, specific pain or any concerning evidence of an infection, do recommend re-evaluation in the interim. Bactrim as directed. <Jenny Rush MD - Last Filed: 02/26/24 21:38> Activity Level: No Restrictions <Jenny Rush MD - Last Filed: 02/26/24 21:38> No Restrictions <Yoan Porras MD - Last Filed: 02/26/24 22:21> Discharge Diet: Regular <Jenny Rush MD - Last Filed: 02/26/24 21:38> Regular <Yoan Porras MD - Last Filed: 02/26/24 22:21> Prescriptions: No Action insulin glargine [Basaglar KwikPen U-100 Insulin] 100 unit/mL (3 mL) insulin pen 60 unit subcut QPM calcium carbonate 600 mg calcium (1,500 mg) tablet 600 mg PO DAILY aspirin 81 mg tablet,delayed release (DR/EC) 81 mg PO DAILY ascorbic acid (vitamin C) 1,000 mg tablet 1,000 mg PO DAILY cholecalciferol (vitamin D3) 25 mcg (1,000 unit) tablet 25 mcg PO QDAY riboflavin (vitamin B2) 50 mg tablet 50 mg PO QDAY oxybutynin chloride 10 mg tablet extended release 24hr 10 mg PO DAILY Qty: 90 3RF duloxetine 60 mg capsule,delayed release(DR/EC) 60 mg PO QDAY Qty: 90 3RF Fiasp FlexTouch U-100 Insulin 100 unit/mL (3 mL) insulin pen 10 - 30 unit subcut TID Qty: 60 3RF zolpidem 10 mg tablet 10 mg PO QHS PRN (Reason: insomnia) Qty: 90 1RF (DME) pen needle, diabetic [UltiCare Pen Needle] 31 gauge x 5/16 needle See Rx Instructions .Route Qty: 100 3RF Rx Instructions: QID naproxen 500 mg tablet 500 mg PO BID PRN (Reason: pain) Qty: 180 3RF (DME) Dexcom G6 Tile Layer Misc See Rx Instructions .Route Qty: 1 0RF Rx Instructions: As directed (DME) Dexcom G6 Sensor Device See Rx Instructions .ROUTE .MEDSUPPLY Qty: 9 2RF Rx Instructions: Change every 10 days sennosides-docusate sodium 8.6-50 mg tablet 2 tab-cap PO QHS Qty: 180 2RF (DME) Dexcom G6 Transmitter Device See Rx Instructions .ROUTE .MEDSUPPLY Qty: 1 3RF Rx Instructions: Change every 3 months atorvastatin 80 mg tablet 80 mg PO QHS Qty: 90 2RF Mounjaro 5 mg/0.5 mL pen injector 5 mg subcut QWEEK Qty: 2 1RF pregabalin 150 mg capsule 150 mg PO QHS Qty: 90 1RF zqpvdojaol-cwlvxaiaigvyt-nwwh [Fioricet] 50-300-40 mg capsule 1 cap PO Q8H PRN (Reason: pain) Qty: 30 0RF Rx Instructions: Not to be used daily <Jenny Rush MD - Last Filed: 02/26/24 21:38> Follow Up/Referrals: Dyllan Wagner MD [Primary Care Provider] - <Jenny Rush MD - Last Filed: 02/26/24 21:38> Stand [facility] <Jenny Rush MD - Last Filed: 02/26/24 21:38>
[2024-02-26] MEDS: 0.9 % SODIUM CHLORIDE 1000 ml 1,000 ML 500 ML IV (20:05)
[2024-02-26 20:07] LABS: Lactate* 1.6 mmol/L (0.5-1.9)
[2024-02-26 20:11] LABS: Basophils Absolute Auto 0.02 K/uL (0.00-0.30); Basophils Percent Auto 0.2 % (0.0-3.0); Eosinophils Absolute Auto 0.43 K/uL (0.00-0.50); Eosinophils Percent Auto 5.3 % (0.0-7.0); Hematocrit 49.6 % (37.0-53.0); Hemoglobin* 16.2 gm/dL (13.5-17.5); Immature Granulocytes Abs Auto 0.01 K/uL (0.00-0.30); Immature Granulocytes Pct Auto 0.1 %; Lymphocytes Absolute Auto 2.17 K/uL (0.90-2.90); Lymphocytes Percent Auto 26.7 % (20-44); Mean Corpuscular HGB Conc 33 gm/dL (32-36); Mean Corpuscular Hemoglobin 31 pg (26-34); Mean Corpuscular Volume 94 fL (80-100); Monocytes Percent Auto 8.7 % (0.0-11.0); Platelet Count* 177 K/uL (140-440); RDW Coefficient of Variation % 13.2 % (11.5-15.5); Red Blood Count 5.28 m/uL (4.30-5.90); White Blood Count* 8.14 K/uL (4.50-11.00)
[2024-02-26 20:16] LABS: Slide Review Reflex No
[2024-02-26 20:22] LABS: Albumin* 3.6 g/dL (3.3-5.0); Chloride* 101 mmol/L (96-114); Sodium* 133 mmol/L (135-149)
[2024-02-26 20:24] LABS: Creatinine* 1.5 mg/dL (0.5-1.5); Est. Creatinine Clearance* 44.39; Estimated Glomerular Filt Rate 47 ml/min
[2024-02-26 20:25] LABS: Alanine Aminotransferase* 30 U/L (4-50); Alkaline Phosphatase* 60 U/L (40-150); Anion Gap 6 mEq/L (7-15); Aspartate Amino Transferase* 26 U/L (12-35); Blood Urea Nitrogen* 25 mg/dL (7-30); Carbon Dioxide* 26 mmol/L (20-32)
[2024-02-26 20:26] LABS: Glucose* 200 mg/dL (60-115)
[2024-02-26 20:31] LABS: C Reactive Protein* < 0.5 mg/dL (0.5-1.0)
[2024-02-26 20:38] LABS: NT Pro B Type NatriureticPept* 136 pg/mL; Troponin I* < 0.01 ng/mL (0.01-0.04)
[2024-02-26 20:41] LABS: PCR FLU A Negative PCR FLU A (Negative); PCR FLU B Negative PCR FLU B (Negative); PCR RSV Negative PCR RSV (Negative); SARS PCR* Negative SARS-CoV-2 (Negative)
[2024-02-26 20:42] LABS: Procalcitonin* 0.04 ng/mL (<0.50)
--- NOTE | 2024-02-26 21:15 | CRLHL7_ITS ---
For Patients: As a result of the Cures Act, medical imaging exams and procedure reports are released immediately into your electronic medical record. You may view this report before your referring provider. If you have questions, please contact your health care provider. INDICATION: . Hypoxia TECHNIQUE: Chest 1 views. COMPARISON: None. FINDINGS: Lungs: Normal lung volume. No consolidation. The tracheobronchial tree and hilar structures are unremarkable. Pleura: No pleural effusion or pneumothorax. Heart and Mediastinum: Normal heart size. The great vessels of the thorax are unremarkable. Bones: No acute displaced osseous process. IMPRESSION: No consolidation. Dictated by Dyllan Tillman MD @ 02/26/2024 10:11:47 PM (Electronically Signed)
[2024-02-26 22:02] LABS: Appearance Urine Slightly Cloudy (Clear); Bilirubin Urine Negative (Negative); Blood Urine Negative (Negative); Color Urine Yellow (Yellow); Glucose Urine Negative (Negative); Ketones Urine Trace (Negative); Leukocyte Esterase Urine 1+ (Negative); Nitrite Urine Negative (Negative); Protein Urine Trace (Negative); Specific Gravity Urine 1.015 (1.000-1.030); Urobilinogen Urine 0.2 (0.2-1.0); pH Urine 5.5 (5.0-8.5)
[2024-02-26 22:15] LABS: RBC Urine 0-2 (0-2); WBC Urine 0-2 (0-5)
== END 2024-02-26 22:43 | disposition home or self-care (01) ==
PROVIDERS: Emergency Provider Family Medicine; PCP Family Medicine
DX: R53.1 Weakness (principal); N39.0 Urinary tract infection, site not specified
CPT/HCPCS: 36415; 71045; 80053; 81001; 83605; 83880; 84145; 84484; 85025; 86140; 87086; 87631; 93005; 94761; 99283; 99284; 99285; J7030

== ENCOUNTER 2024-03-07 13:57 | Outpatient (CLI) | payer MEDICARE, BC, SELFPAY | END 2024-03-07 13:58 | disposition home or self-care (01) | PROVIDERS: PCP Family Medicine; Visit Provider Nurse Practitioner Family | DX: E11.621 Type 2 diabetes mellitus with foot ulcer (principal); L97.518 Non-pressure chronic ulcer of other part of right foot with other specified severity; Z79.4 Long term (current) use of insulin | CPT/HCPCS: G0463 ==

== ENCOUNTER 2024-06-06 12:57 | Outpatient (CLI) | payer MEDICARE, BC, SELFPAY ==
--- NOTE | 2024-06-06 13:00 | CRLHL7_ITS ---
For Patients: As a result of the Century Cures Act, medical imaging exams and procedure reports are released immediately into your electronic medical record. You may view this report before your referring provider. If you have questions, please contact your health care provider. Indication: Radiculopathy. Technique: Multiplanar, multisequence MRI of the lumbar spine was performed without intravenous contrast. Comparison: Lumbar spine radiographs 05/23/2024. Findings: There are 5 lumbar type vertebral segments identified. The vertebral body heights are maintained without evidence of fracture. There is no discrete T1 hypointense marrow infiltrating process. The conus medullaris terminates at T12, normal. Redundancy of the cauda equina nerve roots above the L2-3 level. T12-L1: No spinal canal or neural foraminal stenosis. L1-2: Minimal disc bulge without spinal canal narrowing. Mild neural foraminal narrowing. Mild facet arthropathy. L2-3: Disc bulge with superimposed central disc protrusion. There is severe spinal canal narrowing. Mild neural foraminal narrowing. L3-4: Moderate disc degeneration. Opposing endplate degenerative fatty marrow change (Modic type 2). Disc bulge with ligamentum flavum thickening and facet arthropathy results in [id number] spinal canal narrowing. Moderate neural foraminal narrowing. Severe facet arthropathy. L4-5: Grade 1 anterolisthesis. Uncovering the disc with ligamentum flavum thickening and facet arthropathy results in severe spinal canal stenosis. Moderate neural foraminal narrowing. Severe facet arthropathy. L5-S1: No spinal canal narrowing. Mild neural foraminal narrowing. Mild facet arthropathy. Mild sacroiliac joint osteoarthritis. Impression: 1. At L4-5, severe spinal canal and moderate neural foraminal stenosis. 2. At L2-3, severe spinal canal stenosis. 3. Moderate spondylosis at the remaining lumbar levels. Dictated by Johnathon Leonardo MD @ 06/07/2024 2:55:36 PM (Electronically Signed)
== END 2024-06-06 12:58 | disposition home or self-care (01) ==
LOC: MRI 12:58
PROVIDERS: PCP Family Medicine; Visit Provider Family Medicine
DX: M54.16 Radiculopathy, lumbar region (principal); M48.061 Spinal stenosis, lumbar region without neurogenic claudication; M47.896 Other spondylosis, lumbar region
CPT/HCPCS: 72148

== ENCOUNTER 2024-06-29 14:03 | Outpatient (CLI) | payer MEDICARE, BC, SELFPAY | END 2024-06-29 14:04 | disposition home or self-care (01) | LOC: WOUND 14:03 | PROVIDERS: PCP Family Medicine; Visit Provider Nurse Practitioner Family | DX: E11.621 Type 2 diabetes mellitus with foot ulcer (principal); L97.512 Non-pressure chronic ulcer of other part of right foot with fat layer exposed; L97.521 Non-pressure chronic ulcer of other part of left foot limited to breakdown of skin; L97.522 Non-pressure chronic ulcer of other part of left foot with fat layer exposed; Z79.4 Long term (current) use of insulin | CPT/HCPCS: 97597; G0463 ==

== ENCOUNTER 2024-07-04 13:56 | Outpatient (CLI) | payer MEDICARE, BC, SELFPAY | END 2024-07-04 13:57 | disposition home or self-care (01) | LOC: INJ CL 13:58 | PROVIDERS: PCP Family Medicine; Visit Provider Family Medicine | DX: M54.16 Radiculopathy, lumbar region (principal); M51.26 Other intervertebral disc displacement, lumbar region | CPT/HCPCS: 64483; J1100; Q9966 ==

== ENCOUNTER 2024-07-06 14:06 | Outpatient (CLI) | payer MEDICARE, BC, SELFPAY | END 2024-07-06 14:07 | disposition home or self-care (01) | LOC: WOUND 14:06 | PROVIDERS: PCP Family Medicine; Visit Provider Nurse Practitioner Family | DX: E11.621 Type 2 diabetes mellitus with foot ulcer (principal); L97.512 Non-pressure chronic ulcer of other part of right foot with fat layer exposed; L97.522 Non-pressure chronic ulcer of other part of left foot with fat layer exposed; Z79.4 Long term (current) use of insulin | CPT/HCPCS: 97597 ==

== ENCOUNTER 2024-07-13 14:01 | Outpatient (CLI) | payer MEDICARE, BC, SELFPAY | END 2024-07-13 14:02 | disposition home or self-care (01) | LOC: WOUND 14:01 | PROVIDERS: PCP Family Medicine; Visit Provider Nurse Practitioner Family | DX: E11.621 Type 2 diabetes mellitus with foot ulcer (principal); L97.512 Non-pressure chronic ulcer of other part of right foot with fat layer exposed; L97.522 Non-pressure chronic ulcer of other part of left foot with fat layer exposed | CPT/HCPCS: 11042 ==

== ENCOUNTER 2024-07-19 12:30 | Outpatient (RCR) | payer MEDICARE, BC, SELFPAY ==
--- NOTE | 2024-07-10 16:04 | PT.OPEX ---
[facility] Eval Start: 07/10/24 08:24 Freq: Status: Active Protocol: Document 07/10/24 08:25 CRP (Rec: 07/10/24 16:03 CRP [id number]) E-signed By Ravinder Sanchez PT Physical Therapy Outpatient Evaluation Insurance Information Recert Due Date 10/08/24 Insurance Name Medicare B Medical Diagnosis Lumbar Stenosis Lumbar Radiculopathy Subjective Subjective Pt reports central low back pain, pain into the right hamstring, pain into the R calf. Became a major issue as of this past Summer. No numbness or tingling. Reports that the R leg will go out on him. Apr began using 4WW. Is having daily falls. Is a diabetic and has neuropathy which has affected his sensation. Sitting is pain free. Getting in/out of bed is challenging but once he 's in bed he does find that he is sleeping fine. Uses shower chair and there are railings in the shower. No specific exer routine but can go to [facility] if we set a plan. Pain Comments 0-10/10 Current Work Status Retired Objective Other/Pertinent Objective Posture: forward lean Trunk ROM: Ext lacks 10 deg from neutral, Flex Seated WNL, Bilat SB kush dec, bilat rot mod/kush dec Hip AROM: Seated flex WFL, KNee ROM WNL bilat MMT: Hip ext 3+/5 bilat, Hip abd 4-/5 bilat, knee flex/ext WNL on MMT. Closed chain weakness noted R knee extension Gait: Amb with forward lean and 4WW Functional Test Performed & Score Tinetti 14/28 Assessment Assessment/Impression Pt presents to the clinic with signs and sxs consistent with lumbar spine DDD/DJD and resulting lumbar stenosis and radiculopathy. With this, the pt shows a high risk for falls as noted on Tinetti balance testing. Skilled PT is recommended to incorporate ther ex, nm carolyn, balance training and manual therapy to decrease pain and improve functional mobility. Primary Functional Limitations Gait Standing Self care management Plan of Care Rehabilitation Potential Good Physical Therapy Goals 1. Pt will be independent with HEP in 8 weeks. 2. Pt will walk as needed around the house with 50% decrease in pain in 10 wees, 3. Pt will stand to do self cares with 50% decrease in pain in 12 weeks. Coordination/Communication With Referral Source Treatment Plan/Direct Interventions Gait Training,Joint Mobilization,Manual Therapy, Neuromuscular Re-ed,Self-Care/ Home Management,Therapeutic Activities,Therapeutic Exercises Frequency/Duration 1-2x/wk for 12 weeks Patient Will Be Discharged From Therapy Completion of LTG(s),Skills Plateau,Independent w/HEP, Independently Progressing Evaluation Billing Untimed Code Treatment Minutes 40 Complexity High Certification Information Initial Certification Date 07/10/24 Ending Certification Date 10/08/24 Provider Signature Required Yes Provider Signature Shows Agreement With POC & Medical Necessity Physician NPI Number Write NPI# Here Physician Comment/Change : Physician Signature & Date Requested Please Sign/Date Here
== END 2024-11-16 23:59 | disposition home or self-care (01) ==
PROVIDERS: PCP Family Medicine; Visit Provider Family Medicine
DX: M48.00 Spinal stenosis, site unspecified (principal); M54.16 Radiculopathy, lumbar region; Z51.89 Encounter for other specified aftercare
CPT/HCPCS: 97110; 97116; 97163

== ENCOUNTER 2024-07-20 13:54 | Outpatient (CLI) | payer MEDICARE, BC, SELFPAY | END 2024-07-20 13:55 | disposition home or self-care (01) | LOC: WOUND 13:55 | PROVIDERS: PCP Family Medicine; Visit Provider Nurse Practitioner Family | DX: E11.621 Type 2 diabetes mellitus with foot ulcer (principal); L97.512 Non-pressure chronic ulcer of other part of right foot with fat layer exposed; Z79.4 Long term (current) use of insulin | CPT/HCPCS: 11042 ==

== ENCOUNTER 2024-07-26 13:05 | Outpatient (CLI) | payer MEDICARE, BC, SELFPAY ==
--- NOTE | 2024-07-26 13:00 | CRLHL7_ITS ---
For Patients: As a result of the Century Cures Act, medical imaging exams and procedure reports are released immediately into your electronic medical record. You may view this report before your referring provider. If you have questions, please contact your health care provider. Indication: Gait instability. Technique: MRI of the cervical spine was performed without the use of intravenous contrast. Comparison: None relevant available. Findings: The vertebral body heights appear maintained without evidence of fracture. No discrete T1 hypointense marrow infiltrating process. Mild multilevel disc height loss and degeneration. No abnormal cord signal. C2-3: No spinal canal narrowing. Mild left neural foraminal narrowing secondary to uncovertebral joint and facet arthropathy. Right neural foramen is patent. C3-4: No spinal canal narrowing. Moderately severe neural foraminal narrowing secondary to uncovertebral joint and facet arthropathy. C4-5: Disc osteophyte complex with ligamentum flavum buckling resulting in moderate spinal canal narrowing. Severe neural foraminal narrowing secondary to uncovertebral joint and facet arthropathy. C5-6: No spinal canal narrowing. Moderately severe neural foraminal narrowing secondary to uncovertebral joint and facet arthropathy. C6-7: No spinal canal narrowing. Moderate neural foraminal narrowing. C7-T1: Grade 1 anterolisthesis. No spinal canal narrowing. Mild neural foraminal narrowing. Impression: 1. At C4-5, moderate spinal canal with severe neural foraminal stenosis. 2. At C3-4 and C5-6, moderately severe neural foraminal narrowing. 3. No abnormal cord signal. Dictated by Johnathon Leonardo MD @ 07/28/2024 4:29:17 PM (Electronically Signed)
== END 2024-07-26 13:06 | disposition home or self-care (01) ==
LOC: MRI 13:06
PROVIDERS: PCP Family Medicine; Visit Provider Specialist
DX: R26.81 Unsteadiness on feet (principal); M48.02 Spinal stenosis, cervical region; M50.21 Other cervical disc displacement, high cervical region; M50.222 Other cervical disc displacement at C5-C6 level
CPT/HCPCS: 72141

== ENCOUNTER 2024-08-03 14:07 | Outpatient (CLI) | payer MEDICARE, BC, SELFPAY | END 2024-08-03 14:08 | disposition home or self-care (01) | LOC: WOUND 14:07 | PROVIDERS: PCP Family Medicine; Visit Provider Nurse Practitioner Family | DX: E11.621 Type 2 diabetes mellitus with foot ulcer (principal); L97.521 Non-pressure chronic ulcer of other part of left foot limited to breakdown of skin; Z79.4 Long term (current) use of insulin | CPT/HCPCS: 97597 ==

== ENCOUNTER 2024-08-10 14:08 | Outpatient (CLI) | payer MEDICARE, BC, SELFPAY | END 2024-08-10 14:09 | disposition home or self-care (01) | LOC: WOUND 14:08 | PROVIDERS: PCP Family Medicine; Visit Provider Nurse Practitioner Family | DX: E11.621 Type 2 diabetes mellitus with foot ulcer (principal); L97.521 Non-pressure chronic ulcer of other part of left foot limited to breakdown of skin; Z79.4 Long term (current) use of insulin | CPT/HCPCS: 97597 ==

== ENCOUNTER 2024-08-24 14:03 | Outpatient (CLI) | payer MEDICARE, BC, SELFPAY | END 2024-08-24 14:04 | disposition home or self-care (01) | LOC: WOUND 14:03 | PROVIDERS: PCP Family Medicine; Visit Provider Nurse Practitioner Family | DX: Z86.31 Personal history of diabetic foot ulcer (principal); E11.9 Type 2 diabetes mellitus without complications; I89.0 Lymphedema, not elsewhere classified; Z79.4 Long term (current) use of insulin; Z09 Encounter for follow-up examination after completed treatment for conditions other than malignant neoplasm | CPT/HCPCS: G0463 ==

== ENCOUNTER 2024-08-25 12:48 | Outpatient (CLI) | payer MEDICARE, BC, SELFPAY | END 2024-08-25 12:49 | disposition home or self-care (01) | PROVIDERS: PCP Family Medicine; Visit Provider Family Medicine | DX: E78.2 Mixed hyperlipidemia (principal); E11.65 Type 2 diabetes mellitus with hyperglycemia; Z79.4 Long term (current) use of insulin; Z13.0 Encounter for screening for diseases of the blood and blood-forming organs and certain disorders involving the immune mechanism | CPT/HCPCS: 80048; 80061; 84460; 85025 ==

== ENCOUNTER 2024-10-30 14:47 | Outpatient (CLI) | payer MEDICARE, BC, SELFPAY | END 2024-10-30 14:48 | disposition home or self-care (01) | PROVIDERS: PCP Family Medicine; Visit Provider Family Medicine | DX: E11.65 Type 2 diabetes mellitus with hyperglycemia (principal); E11.621 Type 2 diabetes mellitus with foot ulcer; L97.522 Non-pressure chronic ulcer of other part of left foot with fat layer exposed; Z79.4 Long term (current) use of insulin; Z13.0 Encounter for screening for diseases of the blood and blood-forming organs and certain disorders involving the immune mechanism | CPT/HCPCS: 80048; 85025; 86140 ==

== ENCOUNTER 2024-11-08 17:54 | Outpatient (CLI) | payer MEDICARE, BC, SELFPAY | END 2024-11-08 17:55 | disposition home or self-care (01) | LOC: AMB 11-09 09:37 | PROVIDERS: PCP Family Medicine; Visit Provider Emergency Medicine | DX: R51.9 Headache, unspecified (principal) | CPT/HCPCS: A0425; A0427 ==

== ENCOUNTER 2024-11-08 18:26 | Observation (INO) | payer MEDICARE, BC, SELFPAY ==
[2024-11-08] VITALS (9 sets, daily range): BP systolic 101–168; BP diastolic 57–99; PULSE 60–68; RESP 12–20; TEMP 36.1–36.9; O2SAT 95–98; BMI 33.2; BMI 34.6
--- NOTE | 2024-11-08 18:43 | CRLHL7_ITS ---
For Patients: As a result of the Century Cures Act, medical imaging exams and procedure reports are released immediately into your electronic medical record. You may view this report before your referring provider. If you have questions, please contact your health care provider. DATE: 11/08/2024 CLINICAL HISTORY: Patient with focal neurological deficits. TECHNIQUE: Standard helical CT image acquisition through the intracranial circulation following intravenous administration of contrast material with bolus tracking. 2D and 3D MIP images for post-processing were performed and interpreted on an independent workstation and 3D images were permanently archived. COMPARISON: CT same day. FINDINGS: There is no cerebral aneurysm or large vessel occlusion. The right internal carotid artery is normal. The right middle cerebral artery and its branches are normal. The right anterior cerebral artery and its branches are normal. The left internal carotid artery is normal. The left middle cerebral artery and its branches are normal. The left anterior cerebral artery and its branches are normal. The anterior communicating artery is well visualized and appears normal. The right vertebral artery and PICA are normal. The left vertebral artery and PICA are normal. The left vertebral artery is dominant. The basilar artery is patent and appears normal. The right posterior cerebral artery is normal. The left posterior cerebral artery is normal. IMPRESSION: Patent proximal intracranial vasculature without intracranial aneurysms. Please note that all CT scans at this facility use dose modulation, iterative reconstruction, and/or weight-based dosing when appropriate to reduce radiation dose to as low as reasonably achievable. Dictated by Hermelindo Rosado MD @ 11/09/2024 12:24:43 PM (Electronically Signed)
--- NOTE | 2024-11-08 18:43 | CRLHL7_ITS ---
For Patients: As a result of the Century Cures Act, medical imaging exams and procedure reports are released immediately into your electronic medical record. You may view this report before your referring provider. If you have questions, please contact your health care provider. DATE: 11/08/2024 CLINICAL HISTORY: Patient with headache and confusion. TECHNIQUE: Standard helical CT image acquisition of the neck up to the skull base after bolus intravenous contrast enhancement. 2D and 3D MIP images for post-processing were performed and interpreted on an independent workstation and 3D images were permanently archived. COMPARISON: CT same day. FINDINGS: The origins of the great vessels from the aortic arch are patent. The origin of the right vertebral artery is patent. The origin of the left vertebral artery is patent. The common carotid arteries are patent. There is a mild (less than 50%) stenosis at the origin of the right internal carotid artery by NASCET criteria. This is caused by calcified plaque with a greater than 2mm residual lumen. There is plaque without stenosis at the origin of the left internal carotid artery by NASCET criteria. The rest of the cervical segments of the internal carotid arteries are patent up to the skull base. The left vertebral artery is dominant. The cervical segments of the vertebral arteries are patent up to the skull base. The visualized lung apices are unremarkable. The thyroid gland is unremarkable. The soft tissues of the neck are unremarkable. There are degenerative changes in the cervical spine. IMPRESSION: Mild (less than 50%) stenosis at the origin of the right internal carotid artery by NASCET criteria. This is caused by calcified plaque with a greater than 2mm residual lumen. Please note that all CT scans at this facility use dose modulation, iterative reconstruction, and/or weight-based dosing when appropriate to reduce radiation dose to as low as reasonably achievable. Dictated by Hermelindo Rosado MD @ 11/09/2024 12:19:57 PM (Electronically Signed)
--- NOTE | 2024-11-08 18:43 | ED.GENADULT ---
HPI - General Adult General Time Seen by Provider: 18:43 Date Seen: 11/08/24 Chief complaint: Headache/Migraine Stated complaint: headache Time Seen by Provider: 11/08/24 18:28 Source: patient, EMS and RN notes reviewed Mode of arrival: EMS Limitations: no limitations History of Present Illness HPI narrative: This 79-year-old male is brought in by ambulance from home where he kept falling asleep at the table. He reportedly had altered mental status for about 10-15 minutes. He was eating a salad in eating dinner with his significant other who is here. He states that he was feeling so tired, she kept waking him up, he was complaining of being so tired, kept falling asleep at the table. She states his head kept dropping down, she was able to awaken him. After that he complaint of headache on the right side of his head, he typically gets left-sided headaches from history of a TBI. There is no vision changes. He is diabetic, EMS got his blood sugar to be in the 350s. He had a negative stroke screening exam by EMS. This happened about an hour prior to presentation. His girlfriend noted that he seemed to have some slurred speech but she is noted that all day long. He admits he has just not felt normal today, describes it as an off day. There is nothing specific that he can tell me be on the events at the table tonight. He still feels tired. He had spinal decompression/back surgery in the beginning of August. Does not sound if there is any noted seizure activity, was arousable, she describes it as he just kept falling asleep. Denies any cough, no pain, no noted fevers. His back surgery in August was complicated by a secondary infection, went back at the beginning of September for clean out. He was on antibiotics via PICC line for 4 weeks, is still reportedly on oral antibiotics. Nursing staff at the rehabilitation noticed increasing wound changes of his back, there was never any reported fever that they are aware of, he had no increased pain. His significant other notes that the infectious disease doctor was concerned about changes with his labs as well, this prompted the surgery. Related Data Home Medications ?Medication ?Instructions ?Recorded ?Confirmed ascorbic acid (vitamin C) 1,000 mg 1,000 mg PO DAILY 04/14/22 11/08/24 tablet aspirin 81 mg tablet,delayed 81 mg PO DAILY 04/14/22 11/08/24 release calcium carbonate 600 mg PO DAILY 04/14/22 11/08/24 cholecalciferol (vitamin D3) 25 25 mcg PO QDAY 04/14/22 11/08/24 mcg (1,000 unit) tablet riboflavin (vitamin B2) 50 mg 50 mg PO QDAY 04/15/22 11/08/24 tablet insulin glargine 100 unit/mL (3 60 unit subcut QPM 12/30/23 11/08/24 mL) subcutaneous pen (Basaglar KwikPen U-100 Insulin) sulfamethoxazole 800 1 tab PO BID 10/30/24 11/08/24 mg-trimethoprim 160 mg tablet Previous Rx's ?Medication ?Instructions ?Recorded blood-glucose meter,continuous #1 ea 04/16/23 (Dexcom G6 Decal Applier) sennosides 8.6 mg-docusate sodium 2 tab-cap (2 x 8.6-50 mg) PO QHS 09/06/23 50 mg tablet #180 tabs blood-glucose transmitter (Dexcom #1 ea 09/17/23 G6 Transmitter device) atorvastatin 80 mg tablet 80 mg PO QHS #90 tabs 12/14/23 blood-glucose sensor (Dexcom G6 #9 ea 04/26/24 Sensor device) pen needle, diabetic 31 gauge x #400 ea 05/10/2401/12 (UltiCare Pen Needle) zolpidem 10 mg tablet 10 mg PO QHS PRN insomnia #90 tabs 06/27/24 pregabalin 150 mg capsule (Lyrica) 150 mg PO BID #180 caps 07/05/24 duloxetine 60 mg capsule,delayed 60 mg PO QDAY #90 caps 08/25/24 release oxybutynin chloride 10 mg 10 mg PO DAILY #90 tabs 08/25/24 tablet,extended release 24 hr insulin aspart U-100 100 unit/mL 10 - 20 unit (0.1 - 0.2 mL) subcut 09/25/24 (3 mL) subcutaneous pen (Novolog TID #60 mL FlexPen U-100 Insulin aspart) tizanidine 4 mg tablet 4 mg PO BID PRN muscle spasticity 11/02/24 #30 tabs Allergies Allergy/AdvReac Type Severity Reaction Status Date / Time No Known Drug Allergies Allergy Verified 11/08/24 18:37 Review of Systems Status of ROS: Reports: 6 or more systems reviewed and unremarkable except as noted in History and below [facility] Medical History Type 2 diabetes mellitus, with long-term current use of insulin ?E11.9 - Type 2 diabetes mellitus without complications (ICD-10) ?Z79.4 - [facility] (current) use of insulin (ICD-10) COVID-19 ?U07.1 - COVID-19 (ICD-10) Mixed hyperlipidemia ?E78.2 - Mixed hyperlipidemia (ICD-10) Incontinence of urine ?R32 - Unspecified urinary incontinence (ICD-10) Chronic constipation ?K59.09 - Other constipation (ICD-10) 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 (01/03/20) ?E11.610 - Type 2 diabetes mellitus with diabetic neuropathic arthropathy (ICD-10) Traumatic brain injury (2016) ?S06.9X9A - Unspecified intracranial injury with loss of consciousness of unspecified duration, initial encounter (ICD-10) Tobacco use (02/27/13) ?Z72.0 - Tobacco use (ICD-10) Peripheral vascular disease ?I73.9 - Peripheral vascular disease, unspecified (ICD-10) Obesity with body mass index greater than 30 ?E66.9 - Obesity, unspecified (ICD-10) Malignant neoplasm of prostate ?C61 - Malignant neoplasm of prostate (ICD-10) Ischemic stroke (02/2008) ?I63.9 - Cerebral infarction, unspecified (ICD-10) Ischemic necrosis of foot ?I96 - Gangrene, not elsewhere classified (ICD-10) Insomnia ?G47.00 - Insomnia, unspecified (ICD-10) History of traumatic brain injury ?Z87.820 - Personal history of traumatic brain injury (ICD-10) History of transient ischemic attack ?Z86.73 - Personal history of transient ischemic attack (TIA), and cerebral infarction without residual deficits (ICD-10) History of suicidal ideation ?Z86.59 - Personal history of other mental and behavioral disorders (ICD-10) Diabetic ulcer of right midfoot (10/28/17) ?E11.621 - Type 2 diabetes mellitus with foot ulcer (ICD-10) ?L97.419 - Non-pressure chronic ulcer of right heel and midfoot with unspecified severity (ICD-10) Diabetic retinopathy ?E11.319 - Type 2 diabetes mellitus with unspecified diabetic retinopathy without macular edema (ICD-10) Diabetic neuropathy (12/02/12) ?E11.40 - Type 2 diabetes mellitus with diabetic neuropathy, unspecified (ICD-10) Chronic pain ?G89.29 - Other chronic pain (ICD-10) Anxiety (02/27/13) ?F41.9 - Anxiety disorder, unspecified (ICD-10) Surgical History History of lumbar spinal fusion ?Z98.1 - Arthrodesis status (ICD-10) History of eye surgery ?Z98.890 - Other specified postprocedural states (ICD-10) H/O cataract extraction ?Z98.49 - Cataract extraction status, unspecified eye (ICD-10) History of amputation of hallux ?Z89.419 - Acquired absence of unspecified great toe (ICD-10) Social History Narrative: -Patricia, retired, nonsmoker (quit 1974) What is your current living situation?: I presently have a place to live Problems where you live: no known problems In the past 12 months, utilities in danger of being shut off: no In past 12 months, lack of transportation kept you from medical appts, meetings, work, or getting things needed for daily living: no In the past 12 mos, have been you worried that your food would run out before you had money to buy more?: never true In the past 12 mos, the food you bought just didn't last and you didn't have money to buy more?: never true Smoking Status: Former smoker What tobacco products do you use: cigarettes Smoking quit date/years: >15 years ago Do you use any of these nicotine containing products: None Second hand tobacco smoke exposure: No How often do you have a drink containing alcohol: monthly or less AUDIT-C Alcohol total score: 1 Non-prescribed substance use: denies use How often does anyone, including family, friends and others, physically hurt you: never How often does anyone, including family, friends and others, insult or talk down to you: never How often does anyone, including family, friends and others, threaten you with harm: never How often does anyone, including family, friends and others, scream or curse at you: never Exam Const: Vital Signs, click to edit/add: Vital Signs - 24 hr 11/08/24 18:32 11/08/24 18:32 11/08/24 18:51 Temperature 97.0 F L Pulse Rate 60 Pulse Rate [Pulse Oximeter] 62 Respiratory Rate 18 18 Blood Pressure 110/65 Blood Pressure [Ri ght Upper Arm] 101/57 L Pulse Oximetry 98 98 98 Oxygen Delivery Me thod Room Air 11/08/24 19:48 11/08/24 20:33 11/08/24 21:21 Temperature 98.5 F 98.5 F Pulse Rate 62 64 63 Pulse Rate [Pulse Oximeter] Respiratory Rate 20 12 18 Blood Pressure 134/69 165/83 H 166/92 H Blood Pressure [Ri ght Upper Arm] Pulse Oximetry 96 96 95 Oxygen Delivery Me thod This 79-year-old male is alert, interactive, no apparent distress. No concerning speech changes at this time, symmetrical facial function, denies any visual changes. Breathing easily on room air, lungs are clear, no tachypnea, no accessory muscle use. CV regular rate and rhythm, no murmur, normal S1-S2. Abdomen is soft, nontender, nondistended, no organomegaly. He has wraps on his lower extremities. Lift each leg off the bed. Strength is 5/5 and symmetric. He is slow with rapid alternating finger movements, normal [id number]. Note no focal strength deficits, no baseline dysmetria or tremors noted. Documenting provider has reviewed patient's vital signs: yes Course Course ED Course: Will have patient do head CT and CT angio imaging of his brain and neck. This sounds potentially infectious, possibly spell of altered mentation that could signify developing infection. Will check full complement of labs, have a monitored on cardiac monitoring and pulse oximetry. May eventually need to talk to Neurology regarding this patient but will look at other etiologies as well. Reevaluation(s) Time of Reevaluation #1: 21:13 Reevaluation #1: Have reviewed with patient that stroke Neurology is recommends MRI of his brain in the morning, cardiac monitoring overnight. This is to ensure no ischemic event in the brain. He does not want to stay. I am going to allow him time to talk to his significant other and make their final decision. It is recommended that he do this for his health and personal safety but he is of sound mind to make his own decisions. Salma his significant other does remember maybe in 2009 he had an episode that may have been like a TIA but not a stroke. We did review that he had a prior lacunar infarct in the right medial thalamus on his CT, he obviously is at risk for cerebrovascular disease. We did review that there is mild atherosclerotic change on the carotids, need the formal opinion tomorrow as this is preliminary. If it is documented as mild, my guess is that it is not going to be surgical but something that needs to be followed outpatient. Time of Reevaluation #2: 21:24 Reevaluation #2: Patient states he is going to stay. Will talk to the hospitalist. Consultations Consultation #1: Did speak with Dr. Hill. Gave her a overall picture of this patient, CT findings in CTA findings. She agrees with observation overnight an MR brain in the morning. Will also have him on cardiac monitoring to ensure no rhythm disturbance. Time: 21:05 Consultation #2: Have spoke with hospitalist Rosie Sexton, she accepts patient. Time: 21:34 Vital Signs Vital signs: Initial Vital Signs Temperature 97.0 F L 11/08/24 18:32 Temperature Source Temporal Artery Scan 11/08/24 18:32 Pulse Rate 60 11/08/24 18:32 Respiratory Rate 18 11/08/24 18:32 Blood Pressure 110/65 11/08/24 18:32 Blood Pressure Mean 80 11/08/24 18:32 Blood Pressure Position Sitting 11/08/24 18:32 Pulse Oximetry 98 11/08/24 18:32 Oxygen Delivery Method Room Air 11/08/24 18:32 Vital Signs Temperature 97.0 F L 11/08/24 18:32 Pulse Rate 60 11/08/24 18:32 Respiratory Rate 18 11/08/24 18:32 Blood Pressure 110/65 11/08/24 18:32 Pulse Oximetry 98 11/08/24 18:32 Oxygen Delivery Method Room Air 11/08/24 18:32 Temperature 98.5 F 11/08/24 21:21 Pulse Rate 63 11/08/24 21:21 Respiratory Rate 18 11/08/24 21:21 Blood Pressure 166/92 H 11/08/24 21:21 Pulse Oximetry 95 11/08/24 21:21 Oxygen Delivery Method Room Air 11/08/24 18:32 Medical Decision Making Lab Data Labs: Lab Results 11/08/24 11/08/24 11/08/24 Range/Units 18:52 18:53 19:52 WBC 6.87 (4.50-11.00) K/uL RBC 4.04 L (4.30-5.90) m/uL Hgb 12.4 L (13.5-17.5) gm/dL Hct 38.8 (37.0-53.0) % MCV 96 (80-100) fL MCH 31 (26-34) pg MCHC 32 (32-36) gm/dL RDW Coeff of Jun 13.5 (11.5-15.5) % Plt Count 170 (140-440) K/uL Neut % (Auto) 53.2 (42.0-72.0) % Lymph % (Auto) 30.9 (20-44) % [place] % (Auto) 10.0 (0.0-11.0) % Eos % (Auto) 4.9 (0.0-7.0) % Baso % (Auto) 0.7 (0.0-3.0) % Neut # (Auto) 3.65 (1.7-7.0) K/uL Lymph # (Auto) 2.12 (0.90-2.90) K/uL [place] # (Auto) 0.70 (0.00-0.90) K/UL Eos # (Auto) 0.34 (0.00-0.50) K/uL Baso # (Auto) 0.05 (0.00-0.30) K/uL Abs Immat Gran (auto) 0.02 (0.00-0.30) K/uL Imm/Tot Granulo (auto) 0.3 % Sodium 131 L (135-149) mmol/L Potassium 4.7 (3.6-5.1) mmol/L Chloride 99 (96-114) mmol/L Carbon Dioxide 25 (20-32) mmol/L Anion Gap 7 (7-15) mEq/L BUN 21 (7-30) mg/dL Creatinine 1.1 (0.5-1.5) mg/dL Estimated Creat Clear 59.52 Estimated GFR 67 ml/min Glucose 277 H (60-115) mg/dL Lactate 1.8 (0.5-1.9) mmol/L Calcium 8.5 (8.4-10.6) mg/dL Total Bilirubin 0.4 (0.1-1.5) mg/dL AST 34 (12-35) U/L ALT 33 (4-50) U/L Alkaline Phosphatase 82 (40-150) U/L Troponin I < 0.01 L (0.01-0.04) ng/mL C-Reactive Protein < 0.5 L (0.5-1.0) mg/dL Total Protein 6.1 (6.0-8.3) g/dL Albumin 3.5 (3.3-5.0) g/dL Urine Color Yellow (Yellow) Urine Appearance Clear (Clear) Urine pH 6.5 (5.0-8.5) Ur Specific [place] 1.020 (1.000-1.030) Urine Protein Trace A (Negative) Urine Glucose (UA) 1+ A (Negative) Urine Ketones Negative (Negative) Urine Blood Negative (Negative) Urine Nitrite Negative (Negative) Urine Bilirubin Negative (Negative) Urine Urobilinogen 0.2 (0.2-1.0) Ur Leukocyte Esterase Negative (Negative) Urine RBC 0-2 (0-2) Urine WBC 0-2 (0-5) Ur Squamous Epith Cells Few (None-Few) Urine Bacteria None (None) SARS-CoV-2 (PCR) Negative SARS-CoV-2 (Negative) Influenza Type A (PCR) Negative PCR FLU A (Negative) Influenza Type B (PCR) Negative PCR FLU B (Negative) RSV (PCR) Negative PCR RSV (Negative) Lab Acknowledgement 11/08/24 Range/Units 19:54 WBC (4.50-11.00) K/uL RBC (4.30-5.90) m/uL Hgb (13.5-17.5) gm/dL Hct (37.0-53.0) % MCV (80-100) fL MCH (26-34) pg MCHC (32-36) gm/dL RDW Coeff of Jun (11.5-15.5) % Plt Count (140-440) K/uL Neut % (Auto) (42.0-72.0) % Lymph % (Auto) (20-44) % [place]ades % (Auto) (0.0-11.0) % Eos % (Auto) (0.0-7.0) % Baso % (Auto) (0.0-3.0) % Neut # (Auto) (1.7-7.0) K/uL Lymph # (Auto) (0.90-2.90) K/uL [place] # (Auto) (0.00-0.90) K/UL Eos # (Auto) (0.00-0.50) K/uL Baso # (Auto) (0.00-0.30) K/uL Abs Immat Gran (auto) (0.00-0.30) K/uL Imm/Tot Granulo (auto) % Sodium (135-149) mmol/L Potassium (3.6-5.1) mmol/L Chloride (96-114) mmol/L Carbon Dioxide (20-32) mmol/L Anion Gap (7-15) mEq/L BUN (7-30) mg/dL Creatinine (0.5-1.5) mg/dL Estimated Creat Clear Estimated GFR ml/min Glucose (60-115) mg/dL Lactate (0.5-1.9) mmol/L Calcium (8.4-10.6) mg/dL Total Bilirubin (0.1-1.5) mg/dL AST (12-35) U/L ALT (4-50) U/L Alkaline Phosphatase (40-150) U/L Troponin I (0.01-0.04) ng/mL C-Reactive Protein (0.5-1.0) mg/dL Total Protein (6.0-8.3) g/dL Albumin (3.3-5.0) g/dL Urine Color (Yellow) Urine Appearance (Clear) Urine pH (5.0-8.5) Ur Specific [place] (1.000-1.030) Urine Protein (Negative) Urine Glucose (UA) (Negative) Urine Ketones (Negative) Urine Blood (Negative) Urine Nitrite (Negative) Urine Bilirubin (Negative) Urine Urobilinogen (0.2-1.0) Ur Leukocyte Esterase (Negative) Urine RBC (0-2) Urine WBC (0-5) Ur Squamous Epith Cells (None-Few) Urine Bacteria (None) SARS-CoV-2 (PCR) (Negative) Influenza Type A (PCR) (Negative) Influenza Type B (PCR) (Negative) RSV (PCR) (Negative) Lab Acknowledgement Test Added Imaging Data CT scan - head: Attestation: I have reviewed the pertinent imaging results. Radiologist's impression: Patient: [facility] Facility:?[facility] Patient ID:?[id number] Site Patient ID:?[id number] Site :?[id number] Study:?CT-Head W/O-11/08/2024 7:46:10 PM Ordering Physician:Chele Alvarado Final Report: INDICATION: Headaches. Confusion. TECHNIQUE: CT of the head without contrast. Coronal and sagittal reformats are included. COMPARISON: None. FINDINGS: No CT evidence of acute cortical infarct. No loss of sainz white matter differentiation. No hyperdense vessels to suggest intracranial thrombus. No acute intracranial hemorrhage. No mass effect or midline shift. No hydrocephalus or extra-axial collections. A chronic lacunar infarct within the right medial thalamus. Scattered white matter hypoattenuation, typical for chronic microvascular ischemic change. Overall moderate generalized parenchymal volume loss. Intracranial vascular calcifications. No acute osseous abnormalities. Mastoid air cells and paranasal sinuses are clear. Normal soft tissues. IMPRESSION: IMPRESSION:1. No CT evidence of acute cortical infarct. No acute intracranial hemorrhage. No other acute intracranial findings. Please note that all CT scans at this facility use dose modulation, iterative reconstruction, and/or weight-based dosing when appropriate to reduce radiation dose to as low as reasonably achievable. Dictated by Perry Martinez MD @ 11/08/2024 7:51:11 PM (Electronic Signature) CT- Other: Attestation: I have reviewed the pertinent imaging results. Radiologist's impression: Patient: [facility] Facility:?[facility] Patient ID:?[id number] Site Patient ID:?[id number]. Site :?[id number] Study:?CT-Head Angio W/95CC [id number] ALL IMAGING ON ANGIO -11/08/2024 7:47:45 PM Ordering Physician:?Adri Alvarado Preliminary Report: FINDINGS CTA head: No emergent large vessel occlusion or high-grade intracranial arterial stenosis. CTA neck: No high-grade cervical arterial stenosis. Mild stenosis of the internal carotid artery origins bilaterally from atherosclerotic plaque. Read by:?Perry Matrinez MD @11/08/2024 7:59:07 PM Chest x-ray: Attestation: I have reviewed the pertinent imaging results. Radiologist's impression: Patient: [facility] Facility:?[facility] Patient ID:?[id number] Site Patient ID:?[id number]. Site :?[id number] Study:?XRay-Chest 1 VIEW-11/08/2024 7:43:54 PM Ordering Physician:?Adri Alvarado Final Report: INDICATION: Chest pain. Cough. TECHNIQUE: Chest 1 views. COMPARISON: April 05, 2020. FINDINGS: Cardiovascular and mediastinum: Heart size and vasculature are normal in caliber and appearance. Lungs and pleural spaces: Lungs are clear. No sign of infiltrate or mass. No sign of pleural effusion. No pneumothorax. Bones and soft tissues: No significant findings. IMPRESSION: No acute or significant findings. No change. Dictated by Javier Roberson MD @ 11/08/2024 7:58:53 PM (Electronic Signature) ECG Data Attestation: I personally reviewed and interpreted this ECG as follows: (Sinus bradycardia with sinus arrhythmia, 57 beats per minute. Flattened T-waves, no acute ST segment changes.) Prior ECG tracings: available for review (PVCs on prior EKG, patient is now bradycardic.) Discharge Plan Discharge Clinical Impression: Acute alteration in mental status Patient Disposition: Admitted As Observation
--- NOTE | 2024-11-08 18:44 | CRLHL7_ITS ---
For Patients: As a result of the Century Cures Act, medical imaging exams and procedure reports are released immediately into your electronic medical record. You may view this report before your referring provider. If you have questions, please contact your health care provider. INDICATION: Headaches. Confusion. TECHNIQUE: CT of the head without contrast. Coronal and sagittal reformats are included. COMPARISON: None. FINDINGS: No CT evidence of acute cortical infarct. No loss of sainz white matter differentiation. No hyperdense vessels to suggest intracranial thrombus. No acute intracranial hemorrhage. No mass effect or midline shift. No hydrocephalus or extra-axial collections. A chronic lacunar infarct within the right medial thalamus. Scattered white matter hypoattenuation, typical for chronic microvascular ischemic change. Overall moderate generalized parenchymal volume loss. Intracranial vascular calcifications. No acute osseous abnormalities. Mastoid air cells and paranasal sinuses are clear. Normal soft tissues. IMPRESSION: IMPRESSION:1. No CT evidence of acute cortical infarct. No acute intracranial hemorrhage. No other acute intracranial findings. Please note that all CT scans at this facility use dose modulation, iterative reconstruction, and/or weight-based dosing when appropriate to reduce radiation dose to as low as reasonably achievable. Dictated by Perry Martinez MD @ 11/08/2024 7:51:11 PM (Electronically Signed)
--- NOTE | 2024-11-08 18:51 | CRLHL7_ITS ---
For Patients: As a result of the Cures Act, medical imaging exams and procedure reports are released immediately into your electronic medical record. You may view this report before your referring provider. If you have questions, please contact your health care provider. INDICATION: Chest pain. Cough. TECHNIQUE: Chest 1 views. COMPARISON: April 05, 2020. FINDINGS: Cardiovascular and mediastinum: Heart size and vasculature are normal in caliber and appearance. Lungs and pleural spaces: Lungs are clear. No sign of infiltrate or mass. No sign of pleural effusion. No pneumothorax. Bones and soft tissues: No significant findings. IMPRESSION: No acute or significant findings. No change. Dictated by Javier Roberson MD @ 11/08/2024 7:58:53 PM (Electronically Signed)
--- OUTSIDE RECORDS SUMMARY | 2024-11-08 18:59 | XMS_ITS | Encounter Summary ---
Author Organization [facility] Address [address] [place] [address] Care Team Providers Care Senior Software Architect Name Role Phone Ofe Blas APRN, C.N.P. Primary Care [facility] Encounter Details Date Type Department Care Team (Latest Contact Info) Description 10/18/2024 10:05 AM HOME STAGING SPECIALIST - 10/18/2024 10:06 AM [facility] Hospital Encounter Department of Laboratory Medicine in [place], [place] [address] [place] [address] Ofe Blas APRN, C.N.P. 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 Discharge Disposition: Home or Self Care Social History Tobacco Use Types Packs/Day Years Used Date Smoking Tobacco: Former Smokeless Tobacco: Never Nutrition Answer Date Recorded Nutrition: EVOO Fat Source 13 05/14 Nutrition: Servings of Fruits/Vegetables per Day Not on file 05/14/2020 Dental Answer Date Recorded Dental: Regular Dentist Unknown 10/19/19 21 Sex and Gender Information Value Date Recorded Sex Assigned at Not on file Legal Sex Male 6:41 AM [facility] Gender Identity Not on file Sexual Orientation Not on file documented as of this encounter Medications at Time of Discharge acetaminophen (TylenoL) 500 mg tablet Take 2 tablets by mouth every 6 (six) hours. Max Tylenol Dose: 4000 mg in 24 hours 09/09/2024 ascorbic acid, vitamin C, (VITAMIN C) 1,000 mg tablet Take 1,000 mg by mouth daily. 09/10/2024 aspirin 81 mg chewable tablet Chew 81 mg daily. 09/10/2024 atorvastatin (LIPITOR) 80 mg tablet Take 80 mg by mouth at bedtime. 09/09/2024 Basaglar KwikPen U-100 Insulin 100 unit/mL (3 mL) pen Inject 45 Units under the skin at bedtime. 10/09/2024 BD ULTRA-FINE SHORT PEN NEEDLE 31 gauge x 5/16 needle 01/19/2018 calcium carbonate-vitami n D3 1,500 mg (600 mg calcium)-200 unit per tablet Take 1 tablet by mouth daily with morning meal. 09/09/2024 cholecalciferol, vitamin D3, 25 mcg (1,000 Unit) tablet Take 50 mcg by mouth daily. 03/12/2014 DULoxetine (CYMBALTA) [address] capsule Take 60 mg by mouth daily. 09/10/2024 furosemide (Lasix) 20 mg tablet Take 1 tablet (20 mg total) by mouth daily. 09/21/2024 NovoLOG Flexpen U-100 Insulin 100 unit/mL (3 mL) pen Inject 15 Units under the skin 3 (three) times a day with meals. Sliding scale: Inject as per Sliding scale 15 units TID with meals AND If 0 - 149 = 0 Units 150-199= 1 unit 200-249= 2 units 250-299= 3 units 300-349= 4 units 350-399= 5 units 400 - 999 = 6 units and call MD 10/12/2024 oxybutynin (DITROPAN-XL) 10 mg 24 hr tablet Take 10 mg by mouth at bedtime. 12/30/2017 polyethylene glycol (Miralax) 17 gram/dose oral powder Take 17 g by mouth daily. Dissolve each 17 g dose in 240 mL (8 ounces) of beverage. 09/11/2024 pregabalin (Lyrica) 150 mg capsule Take 1 capsule (150 mg total) by mouth 2 (two) times a day. 60 capsule 2 09/15/2024 sennosides-docus ate sodium (Senokot-S) 8.6-50 mg per tablet Take 2 tablets by mouth 2 (two) times a day. Hold for loose stools 09/09/2024 vitamin B complex-folic acid 0.4 mg tablet Take 1 tablet by mouth daily. 09/09/2024 zolpidem (Ambien) 5 mg tablet Take 1 tablet (5 mg total) by mouth at bedtime as needed for sleep. 1 tablet by mouth as needed for sleep HS PRN 10/05/2024 alteplase (Cathflo Activase) 1 mg/mL injection Infuse 2 mg into a venous catheter once. Use 2 mg IV as needed for PICC line PRN for catheter clearance for 1 day. Instill 2 mg and allow to dwell for 30 min. If unable to aspirate blood, allow to dwell for 120 min. 10/04/2024 5 methocarbamoL (Robaxin) 500 mg tablet Take 0.5 tablets by mouth every 6 (six) hours as needed for muscle spasms (muscle spasms). 09/09/2024 5 oxyCODONE (Roxicodone) 5 mg immediate release tabletIndication s:Acute Pain Exception Take 1 tablet (5 mg total) by mouth every 8 (eight) hours as needed for pain Indication: Acute Pain Exception. Give 1 tablet by mouth every 8 hours as needed for pain 10/05/2024 5 sulfamethoxazole -trimethoprim (Bactrim DS) 800-160 mg per tablet Take 1 tablet by mouth 2 (two) times a day. 10/15/2024 5 documented as of this encounter Plan of Treatment Upcoming Encounters Date Type Department Care Team (Late st Contact Info) Description 12/04/2024 1:45 PM CDT Office Visit Department of Dermatology in [address] [phone] Mcakenzie Flynn M.D. 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 Blood (Blood, Venous) 10/18/2024 9:30 AM HOME STAGING SPECIALIST 10/18/2024 10:10 AM HOME STAGING SPECIALIST Ofe Blas APRN, C.N.P. LAB BLOOD ADD-ON Fi nal Result 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 [address] [place] [address] PCP - General Family Medicine 10/04/24 10/19/24 documented as of this encounter
--- OUTSIDE RECORDS SUMMARY | 2024-11-08 18:59 | XMS_ITS | Encounter Summary ---
Author Organization [facility] Address [address] [place] [address] Care Team Providers Care Nurseryman Assistant Name Role Phone Ofe Blas APRN, C.N.P. Primary Care [facility] Encounter Details Date Type Department Care Team (Latest Contact Info) Description 10/18/2024 10:07 AM MANAGER ENVIRONMENTAL HEALTH AND SAFETY - 10/18/2024 11:59 PM MANAGER ENVIRONMENTAL HEALTH AND SAFETY Hospital Encounter Department of Laboratory Medicine in [place], [place] [address] [place] [address] Ofe Blas APRN, C.N.P. [address] [place] [phone] Methicillin Susceptible Staphylococcus Aureus Infection As The [...] on file Legal Sex Male 6:41 AM MANAGER ENVIRONMENTAL HEALTH AND SAFETY Gender Identity Not on file Sexual Orientation [...] CDT Office Visit Department of Dermatology in [address] [phone] Mackenzie Flynn M.D. 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 LAB BLOOD ADD-ON Fi nal Result [facility] [address] [place] [address], [address] [address] * BUN (Blood Urea Nitrogen) (10/18/2024 10:08 AM MANAGER ENVIRONMENTAL HEALTH AND SAFETY) BUN (Blood Urea Nitrogen), P 16 8 - 24 mg/dL 10/18/2024 10:23 AM MANAGER ENVIRONMENTAL HEALTH AND SAFETY NPRG Blood (Blood, Venous) 10/18/2024 10:08 AM MANAGER ENVIRONMENTAL HEALTH AND SAFETY 10/18/2024 10:08 AM MANAGER ENVIRONMENTAL HEALTH AND SAFETY Ofe Blas APRN, C.N.P. 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 [address] [place] [address] PCP - General Family Medicine 10/04/24 10/19/24 documented as of this encounter
--- OUTSIDE RECORDS SUMMARY | 2024-11-08 19:00 | XMS_ITS | Encounter Summary ---
Author Organization [facility] Address [address] [place] [address] Care Team Providers Care Shared Services Manager Name Role Phone Ofe Blas APRN, C.N.P. Primary Care [facility] Encounter Details Date Type Department Care Team (Latest Contact Info) Description 09/24/2024 10:26 AM STRAIGHTENING MACHINE OPERATOR - 09/24/2024 11:59 PM STRAIGHTENING MACHINE OPERATOR Hospital Encounter Department of Laboratory Medicine in [place], [place] [address] [place] [address] Ofe Blas APRN, C.N.P. [address] [place] [phone] Infection Wound Postoperative Initial Discharge Disposition: Home or Self Care Social [...] on file Legal Sex Male 6:41 AM STRAIGHTENING MACHINE OPERATOR Gender Identity Not on file Sexual Orientation [...] 80 mg by mouth at bedtime. 09/09/2024 BD ULTRA-FINE SHORT PEN NEEDLE 31 gauge [...] (20 mg total) by mouth daily. 09/21/2024 oxybutynin (DITROPAN-XL) 10 mg 24 hr tablet [...] Take 1 tablet by mouth daily. 09/09/2024 BASAGLAR KWIKPEN U-100 INSULIN 100 unit/mL (3 mL) injection Inject 40 Units under the skin at bedtime. 09/09/2024 10/09/2024 cephalexin (Keflex) 500 mg capsuleIndicatio ns:Infection Following A Procedure Deep Incisional Surgical Site Initial Encounter Take 1 capsule (500 mg total) by mouth 3 (three) times a day. 30 capsule 09/23/2024 09/27/2024 methocarbamoL (Robaxin) 500 mg tablet Take 0.5 tablets by mouth every 6 (six) hours as needed for muscle spasms (muscle spasms). 09/09/2024 10/19/2024 NovoLOG Flexpen U-100 Insulin 100 unit/mL (3 mL) pen Sliding scale: Inject as per Sliding scale 5 units TID with meals AND If 0 - 99 = 0 Units 100-149= 3 units 150-199= 5 units 200-249= 7 units 250-299= 10 units 300-399= 15 units 400 - 999 = Notify Provider 09/21/2024 10/05/2024 oxyCODONE (Roxicodone) 5 mg immediate release tabletIndication s:Acute Pain Exception Indication: Acute Pain Exception. Take 1 capsule (5 mg total) by mouth every 8 (eight) hours as needed for pain Indication: Acute Pain Exception. Take 0.5 - 1 Tablet po every 8 hours PRN for Pain: (2.5 mg for pain 3-6/10, 5 mg for pain 7-10) 15 tablet 09/12/2024 10/05/2024 zolpidem (Ambien) 5 mg tablet Take 1 tablet (5 mg total) by mouth at bedtime. 30 tablet 1 09/11/2024 10/05/2024 documented as of this encounter Plan of Treatment Upcoming Encounters Date Type Department Care Team (Late st Contact Info) Description 12/04/2024 1:45 PM CDT Office Visit Department of Dermatology in [address] [phone] Mackenzie Flynn M.D. [address] [place] [phone] Discharge Disposition: Home or Self Care documented as of this encounter Procedures Procedure Name Priority Date/Time Associated Diagnosis Comments BACTERIAL CULTURE, AEROBIC + SUSC Routine 09/24/2024 9:30 AM STRAIGHTENING MACHINE OPERATOR Infection Wound Postoperative Initial documented in this encounter Results * (ABNORMAL) Bacterial Culture, Aerobic + Susceptibility (09/24/2024 9:30 AM STRAIGHTENING MACHINE OPERATOR) Bacterial Culture, Aerobic + Susc STAPHYLOCOCCUS AUREUS 3+ (A) 09/26/2024 8:07 AM STRAIGHTENING MACHINE OPERATOR MKTO Comment: Methicillin Resistant Staphylococcus aureus (MRSA). Semi-Urgent Result. Semi-Urgent This is a semi-urgent result(JAIMES) [facility] Swab (Back) 09/24/2024 9:30 AM STRAIGHTENING MACHINE OPERATOR 09/24/2024 4:44 PM STRAIGHTENING MACHINE OPERATOR Comment:Specimen Source Site : Swab Narrative Organism Antibiotic Method Susceptibility Staphylococcus aureus Oxacillin SUSCEPTIBI LITY, BENITO (MCG/ML) >=4 mcg/mL: Resistant Comment: Use oxacillin interpretation to predict results for anti-staphylococcal beta-lactam antibiotics (except ceftaroline). Staphylococcus aureus Gentamicin SUSCEPTIBI LITY, BENITO (MCG/ML) <=0.5 mcg/mL: Susceptible Staphylococcus aureus Levofloxacin SUSCEPTIBI LITY, BENITO (MCG/ML) >=8 mcg/mL: Resistant Staphylococcus aureus Clindamycin SUSCEPTIBI LITY, BENITO (MCG/ML) 0.25 mcg/mL: Susceptible Staphylococcus aureus Linezolid SUSCEPTIBI LITY, BENITO (MCG/ML) 2 mcg/mL: Susceptible Staphylococcus aureus Daptomycin SUSCEPTIBI LITY, BENITO (MCG/ML) 1 mcg/mL: Susceptible Staphylococcus aureus Vancomycin SUSCEPTIBI LITY, BENITO (MCG/ML) 1 mcg/mL: Susceptible Staphylococcus aureus Doxycycline SUSCEPTIBI LITY, BENITO (MCG/ML) 8 mcg/mL: Intermediate Staphylococcus aureus Rifampin SUSCEPTIBI LITY, BENITO (MCG/ML) <=0.5 mcg/mL: Susceptible Comment:Rifampin christen uld not be used as monotherapy Staphylococcus aureus Trimethoprim + Sulfamethoxazole SUSCEPTIBILITY, BENITO (MCG/ML) <=10 mcg/mL: Susceptible Ofe Blas APRN, C.N.P. LAB MICROBIOLOGY - GENERAL ORDERABLES Final Result [facility] [place] [address], [facility] MKTO [facility] in [place] [address] [place] [address] documented in this encounter Visit Diagnoses Diagnosis Infection Wound Postoperative Initial documented in this encounter Care Teams Shared Services Manager Relationship Specialty Start Date End Date Ofe Blas APRN, C.N.P. [address] [place] [phone] PCP - General Family Medicine 09/09/24 09/30/24 documented as of this encounter
--- OUTSIDE RECORDS SUMMARY | 2024-11-08 19:00 | XMS_ITS | Encounter Summary ---
Author Organization [facility] Address [address] [place] [address] Care Team Providers Care Rigger Name Role Phone Ofe Blas APRN, C.N.P. Primary Care [facility]vi [facility] Encounter Details Date Type Department Care Team (Latest Contact Info) Description 10/09/2024 10:54 AM UTILITY PERSON - 10/09/2024 11:59 PM UTILITY PERSON Hospital Encounter Department of Laboratory Medicine in [place], [place] [address] [place] [address] Ofe Blas APRN, C.N.P. [address] [place] [phone] Infection Following A Procedure Other Surgical Site Subsequent Encounter; Acute Lymphadenitis Of Trunk Discharge Disposition: Home or Self Care Social [...] on file Legal Sex Male 6:41 AM UTILITY PERSON Gender Identity Not on file Sexual Orientation [...] 80 mg by mouth at bedtime. 09/09/2024 Basagljacqui MarkikMaximiliano U-100 Insulin 100 unit/mL (3 mL) pen Inject 45 Units under the skin at bedtime. 10/09/2024 BD ULTRA-FINE SHORT PEN NEEDLE 31 gauge x 5/16 needle 01/19/2018 calcium carbonate-vitamin D3 1,500 mg (600 mg calcium)-200 unit [...] times a day. 60 capsule 2 09/15/2024 sennosides-docusate sodium (Senokot-S) 8.6-50 mg per tablet Take [...] as needed for sleep HS PRN 10/05/2024 vancomycin 1 g vial for reconstitution Infuse 1,250 mg into a venous catheter every 12 (twelve) hours. 10/04/2024 5 alteplase (Cathflo Activase) 1 mg/mL injection Infuse [...] for muscle spasms (muscle spasms). 09/09/2024 5 NovoLOG Flexpen U-100 Insulin 100 unit/mL (3 mL) pen Sliding scale: Inject as per Sliding scale 10 units TID with meals AND If 0 - 149 = 0 Units 150-199= 1 unit 200-249= 2 units 250-299= 3 units 300-349= 4 units 350-399= 5 units 400 - 999 = &nbsp 10/09/2024 5 oxyCODONE (Roxicodone) 5 mg immediate release tabletIndications:Ac [place] Pain Exception Take 1 tablet (5 mg total) by mouth every 8 (eight) hours as needed for pain Indication: Acute Pain Exception. Give 1 tablet by mouth every 8 hours as needed for pain 10/05/2024 5 documented as of this encounter Plan of Treatment Upcoming Encounters Date Type Department Care Team (Late st Contact Info) Description 12/04/2024 1:45 PM CDT Office Visit Department of Dermatology in [address] [phone] Mackenzie Flynn M.D. [address] [place] [address] Discharge Disposition: Home or Self Care documented as of this encounter Procedures Procedure Name Priority Date/Time Associated Diagnosis Comments CBC WITH DIFFERENTIAL, B Routine 10/09/2024 10:56 AM UTILITY PERSON Infection Following A Procedure Other Surgical Site Subsequent Encounter Acute Lymphadenitis Of Trunk C-REACTIVE PROTEIN (CRP), S/P Routine 10/09/2024 10:56 AM UTILITY PERSON Infection Following A Procedure Other Surgical Site Subsequent Encounter VANCOMYCIN, TROUGH, S Routine 10/09/2024 10:56 AM UTILITY PERSON Infection Following A Procedure Other Surgical Site Subsequent Encounter COMPREHENSIVE METABOLIC PANEL, S/P Routine 10/09/2024 10:56 AM UTILITY PERSON Infection Following A Procedure Other Surgical Site Subsequent Encounter documented in this encounter Results * Vancomycin, Trough (10/09/2024 10:56 AM UTILITY PERSON) Vancomycin, Trough, S 16.0 10.0 - 20.0 mcg/mL 10/09/2024 11:34 AM UTILITY PERSON NPRG Blood (Blood, Venous) 10/09/2024 10:56 AM UTILITY PERSON 10/09/2024 10:56 AM UTILITY PERSON Ofe Blas APRN, C.N.P. LAB BLOOD NON ADD-O N Final Result [facility] [address] [place] [address], [facility] NPRG [facility] [address] [place] [address] * (ABNORMAL) CBC with Differential, Blood (10/09/2024 10:56 AM UTILITY PERSON) Hemoglobin 12.7(L) 13.2 - 16.6 g/dL 10/09/2024 11:04 AM UTILITY PERSON NPRG Hematocrit 39.0 38.3 - 48.6 % 10/09/2024 11:04 AM UTILITY PERSON NPRG Erythrocytes 4.10(L) 4.35 - 5.65 x10(12)/L 10/09/2024 11:04 AM UTILITY PERSON NPRG MCV 95.1 78.2 - 97.9 fL 10/09/2024 11:04 AM UTILITY PERSON NPRG RBC Distrib Width 13.2 11.8 - 14.5 % 10/09/2024 11:04 AM UTILITY PERSON NPRG Platelet Count 187 135 - 317 x10(9)/L 10/09/2024 11:04 AM UTILITY PERSON NPRG Leukocytes 7.1 3.4 - 9.6 x10(9)/L 10/09/2024 11:04 AM UTILITY PERSON NPRG Neutrophils 4.34 1.56 - 6.45 x10(9)/L 10/09/2024 11:04 AM UTILITY PERSON NPRG Lymphocytes 1.68 0.95 - 3.07 x10(9)/L 10/09/2024 11:04 AM UTILITY PERSON NPRG Monocytes 0.64 0.26 - 0.81 x10(9)/L 10/09/2024 11:04 AM UTILITY PERSON NPRG Eosinophils 0.41 0.03 - 0.48 x10(9)/L 10/09/2024 11:04 AM UTILITY PERSON NPRG Basophils 0.06 0.01 - 0.08 x10(9)/L 10/09/2024 11:04 AM UTILITY PERSON NPRG Blood (Blood, Venous) 10/09/2024 10:56 AM UTILITY PERSON 10/09/2024 10:56 AM UTILITY PERSON Ofe Blas APRN, C.N.P. LAB BLOOD ADD-ON Fi nal Result [facility] [address] [place] [address], [facility] NPRG [facility] [address] [place] [address] * (ABNORMAL) Comprehensive Metabolic Panel (10/09/2024 10:56 AM UTILITY PERSON) [facility] Potassium, P 3.9 3.6 - 5.2 mmol/L 10/09/2024 11:29 AM UTILITY PERSON NPRG Sodium, P 138 135 - 145 mmol/L 10/09/2024 11:29 AM UTILITY PERSON NPRG Chloride, P 103 98 - 107 mmol/L 10/09/2024 11:29 AM UTILITY PERSON NPRG Bicarbonate, P 27 22 - 29 mmol/L 10/09/2024 11:29 AM UTILITY PERSON NPRG Anion Gap, P 8 7 - 15 10/09/2024 11:29 AM UTILITY PERSON NPRG BUN (Blood Urea Nitrogen), P 15 8 - 24 mg/dL 10/09/2024 11:29 AM UTILITY PERSON NPRG Creatinine 0.92 0.74 - 1.35 mg/dL 10/09/2024 11:29 AM UTILITY PERSON NPRG Estimated GFR (eGFR) 84 >=60 mL/min/BS A 10/09/2024 11:29 AM UTILITY PERSON NPRG Comment: Estimated GFR calculated using the 2020 CKD_EPI creatinine equation. Calcium, Total, P 9.0 8.8 - 10.2 mg/dL 10/09/2024 11:29 AM UTILITY PERSON NPRG Glucose, P 345(H) 70 - 140 mg/dL 10/09/2024 11:29 AM UTILITY PERSON NPRG Protein, Total, P 6.3 6.3 - 7.9 g/dL 10/09/2024 11:29 AM UTILITY PERSON NPRG Albumin, P 3.6 3.5 - 5.0 g/dL 10/09/2024 11:29 AM UTILITY PERSON NPRG Aspartate Aminotransferase (AST), P 24 8 - 48 U/L 10/09/2024 11:29 AM UTILITY PERSON NPRG Alkaline Phosphatase, P 109 40 - 129 U/L 10/09/2024 11:29 AM UTILITY PERSON NPRG Alanine Aminotransferase (ALT), P 25 7 - 55 U/L 10/09/2024 11:29 AM UTILITY PERSON NPRG Bilirubin, Total, P 0.3 0.0 - 1.2 mg/dL 10/09/2024 11:29 AM UTILITY PERSON NPRG Blood (Blood, Venous) 10/09/2024 10:56 AM UTILITY PERSON 10/09/2024 10:56 AM UTILITY PERSON us Ofe Blas APRN, C.N.P. LAB BLOOD ADD-ON Fi nal Result [facility] [address] [place] [address], [place] NPRG [facility] [address] [place] [address] * CRP (C-Reactive Protein) (10/09/2024 10:56 AM UTILITY PERSON) C-Reactive Protein (CRP), P 4.3 <5.0 mg/L 10/09/2024 11:29 AM UTILITY PERSON NPRG Blood (Blood, Venous) 10/09/2024 10:56 AM UTILITY PERSON 10/09/2024 10:56 AM UTILITY PERSON Ofe Blas APRN, C.N.P. LAB BLOOD ADD-ON Fi nal Result [facility] [address] [place] [address], [facility] NPRG [facility] [address] [place] [address] documented in this encounter Visit Diagnoses Diagnosis Infection Following A Procedure Other Surgical Site Subsequent Encounter Acute Lymphadenitis Of Trunk documented in this encounter Care Teams Rigger Relationship Specialty Start Date End Date Ofe Blas APRN, C.N.P. [address] [place] [address] PCP - General Family Medicine 10/04/24 10/19/24 documented as of this encounter
--- OUTSIDE RECORDS SUMMARY | 2024-11-08 19:00 | XMS_ITS | Encounter Summary ---
Author Organization [facility] Address [address] [place] [address] Care Team Providers Care Wick And Base Assembler Name Role Phone None Reported, Pcp Primary Care Provider Unavail able Encounter Details Date Type Department Care Team (Late st Contact Info) Description 09/27/2024 Clinical Communication Senior Services in [place] [address] [place] [phone] Ofe Blas, MICHAEL, C.N.P. [address] [place] [address] Social History Tobacco Use Types Packs/Day Years Used Date Smoking Tobacco: Former Smokeless Tobacco: Never Nutrition Answer Date Recorded Nutrition: EVOO Fat Source 13 05/14 Nutrition: Servings of Fruits/Vegetables per Day Not on file 05/14/2020 Dental Answer Date Recorded Dental: Regular Dentist Unknown 10/19/19 21 Sex and Gender Information Value Date Recorded Sex Assigned at Not on file Legal Sex Male 6:41 AM REVENUE FIELD AUDITOR Gender Identity Not on file Sexual Orientation Not on file documented as of this encounter Plan of Treatment Upcoming Encounters Date Type Department Care Team (Late st Contact Info) Description 12/04/2024 1:45 PM CDT Office Visit Department of Dermatology in [address] [phone] Mackenzie Flynn M.D. [address] [place] [address] Discharge Disposition: Home or Self Care documented as of this encounter Visit Diagnoses Not on filedocumented in this encounter Additional Health Concerns Infection Onset Date Last Indicated Resolved Time MRSA 09/24/2024 09/24/2024 09/27/2024 6:29 AM REVENUE FIELD AUDITOR documented as of this encounter Care Teams Wick And Base Assembler Relationship Specialty Start Date End Date None Reported, Pcp PCP - General Family Medicine 10/20/24 documented as of this encounter
--- OUTSIDE RECORDS SUMMARY | 2024-11-08 19:00 | XMS_ITS | Encounter Summary ---
Author Organization [facility] Address [address] [place] [address] Care Team Providers Care Director Data Name Role Phone Ofe Blas APRN, C.N.P. Primary Care Provi [facility] Encounter Details Date Type Department Care Team (Late st Contact Info) Description 09/27/2024 Orders Only [facility] in [place] [address] [place] [phone] Ofe Blas APRN, C.N.P. [address] [place] [phone] Social History Tobacco Use Types Packs/Day Years Used Date Smoking Tobacco: Former Smokeless Tobacco: Never Nutrition Answer Date Recorded Nutrition: EVOO Fat Source 13 05/14 Nutrition: Servings of Fruits/Vegetables per Day Not on file 05/14/2020 Dental Answer Date Recorded Dental: Regular Dentist Unknown 10/19/19 21 Sex and Gender Information Value Date Recorded Sex Assigned at Not on file Legal Sex Male 6:41 AM BECK TENDER Gender Identity Not on file Sexual Orientation Not on file documented as of this encounter Plan of Treatment Upcoming Encounters Date Type Department Care Team (Late st Contact Info) Description 12/04/2024 1:45 PM CDT Office Visit Department of Dermatology in [address] [phone] Mackenzie Flynn M.D. [address] [place] [address] Discharge Disposition: Home or Self Care documented as of this encounter Visit Diagnoses Not on filedocumented in this encounter Additional Health Concerns Infection Onset Date Last Indicated Resolved Time MRSA 09/24/2024 09/24/2024 09/27/2024 6:29 AM BECK TENDER documented as of this encounter Care Teams Director Data Relationship Specialty Start Date End Date Ofe Blas APRN, C.N.P. [address] [place] [phone] PCP - General Family Medicine 09/09/24 09/30/24 documented as of this encounter
--- OUTSIDE RECORDS SUMMARY | 2024-11-08 19:00 | XMS_ITS | Encounter Summary ---
Author Organization [facility] Address [address] [place] [address] Care Team Providers Care Refrigeration Engineer Name Role Phone Ofe Blas APRN, C.N.P. Primary Care [facility] Encounter Details Date Type Department Care Team (Latest Contact Info) Description 10/12/2024 9:00 AM MARINE SERVICE MANAGER External Outreach [facility] in [place] [address] [place] [phone] Ofe Blas APRN, C.N.P. 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) Social History Tobacco Use Types Packs/Day Years Used Date Smoking Tobacco: Former Smokeless Tobacco: Never Nutrition Answer Date Recorded Nutrition: EVOO Fat Source 13 05/14 Nutrition: Servings of Fruits/Vegetables per Day Not on file 05/14/2020 Dental Answer Date Recorded Dental: Regular Dentist Unknown 10/19/19 21 Sex and Gender Information Value Date Recorded Sex Assigned at Not on file Legal Sex Male 6:41 AM MARINE SERVICE MANAGER Gender Identity Not on file Sexual Orientation Not on file documented as of this encounter Last Filed Vital Signs Vital Sign Reading Time Taken Comments Blood Pressure 114/70 10/12/2024 7:48 AM MARINE SERVICE MANAGER Pulse 65 10/12/2024 7:48 AM MARINE SERVICE MANAGER Temperature 36.6 C (97.9 F) 10/12/2024 7:48 AM MARINE SERVICE MANAGER Respiratory Rate 16 10/12/2024 7:48 AM MARINE SERVICE MANAGER Oxygen Saturation 96% 10/12/2024 7:48 AM MARINE SERVICE MANAGER Inhaled Oxygen Concentration - - Weight 111 kg (245 lb 6.4 oz) 10/12/2024 7:48 AM MARINE SERVICE MANAGER Height - - Body Mass Index 32.38 09/11/2024 8:28 AM MARINE SERVICE MANAGER documented in this encounter Progress Notes * Erin Dahl, L.P.N. - 10/12/2024 9:00 AM CST Images from the original note were not included. SNF VISIT Acute Follow up CBG's: Documented SNF CBG's NE SERVICE MANAGER * Ofe Blas APRN C.N.P. - 10/12/2024 9:00 AM CST Images from the original note were not included. CHIEF COMPLAINT / REASON FOR VISIT The resident is being seen at [place], [place] for a Follow up Visit Visit Type: In Person Face-to- Face visit SUBJECTIVE HISTORY OF PRESENT ILLNESS Obtained from Patient, Nursing, and SBAR: Reason for hospitalization: Surgical wound infection He has a history of Decompression - Lateral recess L2 to: L5,, Posterior Spine Fusion with Instrumentation L4 to: L5, Transforaminal Lumbar Interbody Fusion Levels: L4 to: L5 on 09/06/[address] Washington, Bebeto Jackson MD. His incision was infected, originally started on Keflex, wound cultures grew out MRSA and antibiotic was changed to Bactrim. This did not improve and he was hospitalized at [facility], he was then transferred to [place] and had a lumbar irrigation and debridement and closure on 10/01/2024. He will be on vancomycin every 12 hours. He is seen today for an incision check and follow up blood sugars. He is doing well. He has no major concerns. His pain is well controlled. Did review blood sugars as below. SNF VISIT Acute Follow up CBG's: Documented SNF CBG's I personally reviewed the most recent following items: clinical notes, lab results The following medical problems were actively reviewed (including updating overview sections as necessary) and addressed as part of today's visit: Diagnosis Overview 1. 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 Infection Following A Procedure Other Surgical Site Initial Encounter - Primary CODE STATUS: FULL CODE REVIEW OF SYSTEMS Complete review of systems was performed, as allowable by patient's cognitive status, and incorporating collateral history if applicable. Relevant positives are noted elsewhere in this note, otherwise negative. OBJECTIVE Vital signs provided by facility: BP 114/70 Pulse 65 Temp 36.6 ??C Resp 16 Wt 111 kg SpO2 96% BMI 32.38 kg/m?? PHYSICAL EXAM Constitutional General: He is not in acute distress. Appearance: Normal appearance. He is not ill-appearing. HENT Nose: Nose normal. No congestion or rhinorrhea. Eyes Conjunctiva/sclera: Conjunctivae normal. Pulmonary Effort: Pulmonary effort is normal. No respiratory distress. Skin Coloration: Skin is pale. Comments: Back incision is clean, dry and intact, no drainage or signs of infection Neurological Mental Status: He is alert. Mental status is at baseline. Psychiatric Mood and Affect: Mood normal. Behavior: Behavior normal. Thought Content: Thought content normal. Judgment: Judgment normal. ASSESSMENT / PLAN Full background details regarding problems addressed at today's visit can be found in the HPI. Pertinent changes to the care plan based on today's evaluation are explicitly discussed below, otherwiselisted problems are stable and present management will be continued. 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 Explained diagnosis and treatment plan; patient/child/caregiver expressed understanding of the content. Billing based on: Medical decision-making. See clinical note for justification. Any additional supporting information is noted below. NE SERVICE MANAGER documented in this encounter Miscellaneous Notes * Assessment & Plan Note - Ofe Blas APRN, C.N.P. 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 - 10/12/2024 11:04 AM CSTAssociated Problem(s): Infection Following A Procedure Other Surgical Site Initial Encounter Continue vancomycin as scheduled Follow up with spine surgeon as recommended Labs per infectious disease Incision looks like it is healing without signs of infection today NE SERVICE MANAGER documented in this encounter Plan of Treatment Upcoming Encounters Date Type Department Care Team (Late st Contact Info) Description 12/04/2024 1:45 PM CDT Office Visit Department of Dermatology in [address] [phone] Mackenzie Flynn M.D. 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 [address] [place] [phone] PCP - General Family Medicine 10/04/24 10/19/24 documented as of this encounter
--- OUTSIDE RECORDS SUMMARY | 2024-11-08 19:00 | XMS_ITS | Encounter Summary ---
Author Organization [facility] Address [address] [place] [address] Care Team Providers Care Blueprint Cutter Name Role Phone Ofe Blas APRN, C.N.P. Primary Care [facility] Encounter Details Date Type Department Care Team (Latest Contact Info) Description 09/26/2024 2:40 AM CONTROL CHEMIST - 09/26/2024 11:59 PM CONTROL CHEMIST Hospital Encounter Department of Laboratory Medicine in [place], [place] [address] [place] [address] Ofe Blas APRN, C.N.P. [address] [place] [phone] Hypertension Essential Primary; Infection Skin Discharge Disposition: Home or Self Care Social [...] on file Legal Sex Male 6:41 AM CONTROL CHEMIST Gender Identity Not on file Sexual Orientation [...] Take 1 tablet by mouth daily. 09/09/2024 sulfamethoxazole -trimethoprim (Bactrim DS) 800-160 mg per tabletIndication s:Cellulitis Back Take 1 tablet by mouth 2 (two) times a day for 7 days. 14 tablet 09/26/2024 10/03/2024 BISHOP SMALL U-100 INSULIN 100 unit/mL (3 mL) injection [...] CDT Office Visit Department of Dermatology in [address] [phone] Mackenzie Flynn M.D. [address] [place] [phone] Discharge Disposition: Home or Self Care documented as of this encounter Procedures Procedure Name Priority Date/Time Associated Diagnosis Comments SEDIMENTATION RATE, B Routine 09/26/2024 7:30 AM CONTROL CHEMIST Hypertension Essential Primary Infection Skin CBC WITH DIFFERENTIAL, B Routine 09/26/2024 7:30 AM CONTROL CHEMIST Hypertension Essential Primary Infection Skin C-REACTIVE PROTEIN (CRP), S/P Routine 09/26/2024 7:30 AM CONTROL CHEMIST Hypertension Essential Primary Infection Skin BASIC METABOLIC PANEL, S/P Routine 09/26/2024 7:30 AM CONTROL CHEMIST Hypertension Essential Primary Infection Skin documented in this encounter Results * (ABNORMAL) Sedimentation Rate (09/26/2024 7:30 AM CONTROL CHEMIST) Sedimentation Rate, B 51(H) 0 - 22 mm/1 h 09/26/2024 2:54 PM CONTROL CHEMIST [facility] Blood (Blood, Venous) 09/26/2024 7:30 AM CONTROL CHEMIST 09/26/2024 2:09 PM CONTROL CHEMIST us Ofe Blas APRN, C.N.P. LAB BLOOD ADD-ON Fi nal Result [facility] [place] [address], [facility] [address] * (ABNORMAL) CBC with Differential, Blood (09/26/2024 7:30 AM CONTROL CHEMIST) Hemoglobin 12.2(L) 13.2 - 16.6 g/dL 09/26/2024 8:30 AM CONTROL CHEMIST NPRG Hematocrit 37.0(L) 38.3 - 48.6 % 09/26/2024 8:30 AM CONTROL CHEMIST NPRG Erythrocytes 3.89(L) 4.35 - 5.65 x10(12)/L 09/26/2024 8:30 AM CONTROL CHEMIST NPRG MCV 95.1 78.2 - 97.9 fL 09/26/2024 8:30 AM CONTROL CHEMIST NPRG RBC Distrib Width 12.8 11.8 - 14.5 % 09/26/2024 8:30 AM CONTROL CHEMIST NPRG Platelet Count 332(H) 135 - 317 x10(9)/L 09/26/2024 8:30 AM CONTROL CHEMIST NPRG Leukocytes 7.9 3.4 - 9.6 x10(9)/L 09/26/2024 8:30 AM CONTROL CHEMIST NPRG Neutrophils 4.69 1.56 - 6.45 x10(9)/L 09/26/2024 8:30 AM CONTROL CHEMIST NPRG Lymphocytes 1.84 0.95 - 3.07 x10(9)/L 09/26/2024 8:30 AM CONTROL CHEMIST NPRG Monocytes 0.91(H) 0.26 - 0.81 x10(9)/L 09/26/2024 8:30 AM CONTROL CHEMIST NPRG Eosinophils 0.42 0.03 - 0.48 x10(9)/L 09/26/2024 8:30 AM CONTROL CHEMIST NPRG Basophils 0.07 0.01 - 0.08 x10(9)/L 09/26/2024 8:30 AM CONTROL CHEMIST NPRG Blood (Blood, Venous) 09/26/2024 7:30 AM CONTROL CHEMIST 09/26/2024 8:10 AM CONTROL CHEMIST Ofe Blas APRN, C.N.P. LAB BLOOD ADD-ON Fi nal Result [facility] [address] [place] [address], [facility] NPRG [facility] [address] [place] [address] * (ABNORMAL) Basic Metabolic Panel (09/26/2024 7:30 AM CONTROL CHEMIST) Potassium, P 4.1 3.6 - 5.2 mmol/L 09/26/2024 9:10 AM CONTROL CHEMIST NPRG Sodium, P 141 135 - 145 mmol/L 09/26/2024 9:10 AM CONTROL CHEMIST NPRG Chloride, P 105 98 - 107 mmol/L 09/26/2024 9:10 AM CONTROL CHEMIST NPRG Bicarbonate, P 30(H) 22 - 29 mmol/L 09/26/2024 9:10 AM CONTROL CHEMIST NPRG Anion Gap, P 6(L) 7 - 15 09/26/2024 9:10 AM CONTROL CHEMIST NPRG BUN (Blood Urea Nitrogen), P 12 8 - 24 mg/dL 09/26/2024 9:10 AM CONTROL CHEMIST NPRG Creatinine 1.00 0.74 - 1.35 mg/dL 09/26/2024 9:10 AM CONTROL CHEMIST NPRG Estimated GFR (eGFR) 76 >=60 mL/min/BSA 09/26/2024 9:10 AM CONTROL CHEMIST NPRG Comment: Estimated GFR calculated using the 2020 CKD_EPI creatinine equation. Calcium, Total, P 8.7(L) 8.8 - 10.2 mg/dL 09/26/2024 9:10 AM CONTROL CHEMIST NPRG Glucose, P 101 70 - 140 mg/dL 09/26/2024 9:10 AM CONTROL CHEMIST NPRG Blood (Blood, Venous) 09/26/2024 7:30 AM CONTROL CHEMIST 09/26/2024 8:10 AM CONTROL CHEMIST us Ofe Blas APRN, C.N.P. LAB BLOOD ADD-ON Fi nal Result Performing Organization Address City/[facility]/ZIP Co de Phone Number [facility] [address] [place] [address], [place] NPRG [address] [address] * (ABNORMAL) CRP (C-Reactive Protein) (09/26/2024 7:30 AM CONTROL CHEMIST) C-Reactive Protein (CRP), P 28.0(H) <5.0 mg/L 09/26/2024 9:10 AM CONTROL CHEMIST NPRG Blood (Blood, Venous) 09/26/2024 7:30 AM CONTROL CHEMIST 09/26/2024 8:10 AM CONTROL CHEMIST us Ofe Blas APRN, C.N.P. LAB BLOOD ADD-ON Fi nal Result Performing Organization Address City/[facility]/ZIP Co de Phone Number [facility] [address] [place] [address], [place] NPRG [address] [address] documented in this encounter Visit Diagnoses Diagnosis Hypertension Essential Primary Infection Skin documented in this encounter Additional Health Concerns Infection Onset Date Last Indicated Resolved Time MRSA 09/24/2024 09/24/2024 09/27/2024 6:29 AM CONTROL CHEMIST documented as of this encounter Care Teams Blueprint Cutter Relationship Specialty Start Date End Date Ofe Blas APRN, C.N.P. [address] [place] [phone] PCP - General Family Medicine 09/09/24 09/30/24 documented as of this encounter
--- OUTSIDE RECORDS SUMMARY | 2024-11-08 19:00 | XMS_ITS | Continuity of Care Document ---
Author Organization [facility] Address [address] [place] [address] Phone Care Team Providers Care Elderly Companion Name Role Phone Felix JACOBSEN, Bebeto Unavailable Unavailable Allergies, Adverse Reactions, Alerts Substance Reaction Status Criticality No Known Allergies Active No Inform ation Medications Medication Instructions Dosage Effective Dates (start - stop) Status Comments BACTRIM (unknown strength) Not Available - Active ACETAMINOPHEN (unknown strength) Not Available - Active PREGABALIN (unknown strength) Not Available - Active VITAMIN B COMPLEX (unknown strength) Not Available - Active IBUPROFEN (unknown strength) Not Available - Active OXYBUTYNIN CHLORIDE (unknown strength) Not Available - Active ATORVASTATIN CALCIUM (unknown strength) Not Available - Active ASPIRIN (unknown strength) Not Available - Active DULOXETINE HCL (unknown strength) Not Available - Active ZOLPIDEM TARTRATE (unknown strength) Not Available - Active VITAMIN D3 (unknown strength) Not Available - Active VITAMIN C (unknown strength) Not Available - Active Procedures Procedure Date Postop Followup Visit X-Ray Exam Lower Spine 2-3 Views 2024 HOLD Postop Followup Visit X-Ray Exam Lower Spine 2-3 Views 2024 TLIF - Includes PSF at the same level - PA MCDUFFIE FACETC/FRMT ARTHRD LUM 1 Lami, Facetectomy/Foraminotomy, Lumbar ( Stenosis) Lami, Facetectomy/Foraminotomy - Additio nal Level(s) - PA Posterior Instrumentation, Non-segmental - PA PEEK/ Cage/ Implant, For Interbody Fusio n - PA TLIF - Includes PSF at the same level Ja MCDUFFIE FACETC/FRMT ARTHRD LUM 1 Lami, Facetectomy/Foraminotomy, Lumbar ( Stenosis) Lami, Facetectomy/Foraminotomy - Additio nal Level(s) Posterior Instrumentation, Non-segmental PEEK/ Cage/ Implant, For Interbody Fusio n Office/Outpatient Visit,[facility], [facility] [place] Advance Directives Directive Yes / No Effective Date File Name No Information Encounters Encounter Description Practice Location Reason(s) For Visit Diagnoses Date Provider Providers Copied on Encounter [facility], [address], [place], [id number], [place] tel:[phone] [facility] - [facility] Encounter for other specified surgical aftercare Felix [facility], [address] [place] [address] [address], [place], [place], [id number] , [place]. tel:[phone] Referring Provider: Jalen Vargas [facility] ER Physician-D o Not Fax, [place], [address]. tel:[phone] [facility], [address], [facility] [place], [id number], [place] tel:[phone] [facility] Encounter for other specified surgical aftercare [facility]hb[facility], [address] [place] [address] [address], [place], [place], [id number] , [place]. tel:[phone] Referring [facility]: [facility] Physician-D o Not Fax, [place], [address]. tel:[phone] [facility], [address], [facility] [place], [place], [id number], [place] tel:[phone] [facility] No Information Socorro Blankenship. [address], [place], [place], [id number] , [place]. [phone] Referring Provider: Jalen Vargas, [facility] ER Physician-D o Not Fax, [place], [address]. [phone] [facility], [address], [place], [place], [id number], [place] tel:[phone] [facility] No Information 5 Felix Armenta [facility] [place], [address], [place], [place], [id number] , [place]. [phone] Referring Provider: Jalen Vargas, [facility] Physician-D o Not Fax, [place], [address]. [phone] Office/Outpat ient Visit,[facility], [facility] [place] [facility], [address], [place], [place], [id number], [place] tel:[phone] [facility] Spinal stenosis, lumbar region with neurogenic claudication 4 Felix Armenta [facility], [address], [place], [place], [id number] , [place]. [phone] Referring Provider: eBbeto Washington, [facility] [address], [place], [address]. tel:[phone] Family History Family Member Type Diagnosis Age At Onset Mother Problem (finding) Depression Mother Problem (finding) Suicide Payers Payer name Insurance type Covered green party ID Authorkandicea lalitanella(s) [facility] [id number] Medicare [facility] [id number] 1 Medical Assistance [facility] [id number] Social History Type Description Quantity Date Captured Comments Alcohol Use Details Unknown Caffeine Use Details Unknown Tobacco Use Status No Information Smoking Status Never smoker Non-Smoking Tobacco Use Details : No Details Available : No Details Available Sex Male Vital Signs Date / Time: Height Weight BMI Pulse Rate Blood Pressure Temperature Respiratory Rate Body Surface Area Head Circumference Head Circ. Percentile Wt./Alex. Percentile BMI percentile Pulse Ox Inhaled Ox 3:18 PM 73.00 in 113.398 kg (250.00 lbs) 32.9 8 kg/m eter (2) Chief Complaint And Reason For Visit No Information Reason For Referral Reason For Referral No Information Plan Of Treatment Date Type Action Status Appointment Matheus Ballard BOOKED History Of Present Illness Encounter Date Complaint History Of Prese nt Illness No Information Functional Status Date Functional Assessmen t No Information Instructions Date Instruction Additional Infor mation No Information Assessments Type Assessment Date No Information Patient Care Teams Name Effective Dates (start - stop) Status Members No Information
--- OUTSIDE RECORDS SUMMARY | 2024-11-08 19:00 | XMS_ITS | Encounter Summary ---
Author Organization [facility] Address [address] [place] [address] Care Team Providers Care Oracle Forms Developer Name Role Phone Ofe Blas APRN, C.N.P. Primary Care Provi [facility] Encounter Details Date Type Department Care Team (Latest Contact Info) Description 10/19/2024 10:30 AM SENIOR IT SECURITY ANALYST External [facility]reach [facility] [place] [address] [place] [phone] Ofe Blas APRN, C.N.P. 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); Diabetes Mellitus Type 2 With Diabetic Neuropathy (HCC); Infection Following A Procedure Other Surgical Site Initial Encounter; Hyperlipidemia; Depression; Insomnia; Stenosis Spinal Lumbar With Neurogenic Claudication; Fusion Lumbar Spine Status Post Social History Tobacco Use Types Packs/Day Years Used Date Smoking Tobacco: Former Smokeless Tobacco: Never Nutrition Answer Date Recorded Nutrition: EVOO Fat Source 13 05/14 Nutrition: Servings of Fruits/Vegetables per Day Not on file 05/14/2020 Dental Answer Date Recorded Dental: Regular Dentist Unknown 10/19/19 21 Sex and Gender Information Value Date Recorded Sex Assigned at Not on file Legal Sex Male 6:41 AM SENIOR IT SECURITY ANALYST Gender Identity Not on file Sexual Orientation Not on file documented as of this encounter Last Filed Vital Signs Vital Sign Reading Time Taken Comments Blood Pressure 98/56 10/19/2024 8:19 AM SENIOR IT SECURITY ANALYST Pulse 71 10/19/2024 8:19 AM SENIOR IT SECURITY ANALYST Temperature 37 C (98.6 F) 10/19/2024 8:19 AM SENIOR IT SECURITY ANALYST Respiratory Rate 18 10/19/2024 8:19 AM SENIOR IT SECURITY ANALYST Oxygen Saturation 91% 10/19/2024 8:19 AM SENIOR IT SECURITY ANALYST Inhaled Oxygen Concentration - - Weight 115 kg (253 lb 6.4 oz) 10/19/2024 8:19 AM SENIOR IT SECURITY ANALYST Height - - Body Mass Index 33.43 09/11/2024 8:28 AM SENIOR IT SECURITY ANALYST documented in this encounter Progress Notes * Emory Chan L.PLisbethN. - 10/19/2024 10:30 AM CST Images from the original note were not included. SNF VISIT Follow up of: Blood Sugars SNF blood sugar readings: OR IT SECURITY ANALYST * Ofe Blas APRN C.N.P. - 10/19/2024 10:30 AM CST Images from the original note were not included. CHIEF COMPLAINT / REASON FOR VISIT The resident is being seen at [place], [place] for a Discharge H&P Visit Visit Type: In Person Face-to- Face visit SUBJECTIVE HISTORY OF PRESENT ILLNESS Obtained from Patient, Nursing, and SBAR: He has a history of Decompression - [...] not improve and he was hospitalized at [facility], he was then transferred to [facility] and had a lumbar irrigation and debridement and closure on 10/01/2024. He completed vancomycin and his PICC line is removed today. He plans to discharge home on 10/20/2024 with his . He is doing well, he has not used oxycodoneand methocarbamol for a couple of weeks. He is 1 assist with a walker. His insulin has been adjusted since he has been here. Blood sugars are improved. I personally reviewed the most recent following items: clinical notes, lab results The following medical problems were actively reviewed (including updating overview sections as necessary) and addressed as part of today's visit: Diagnosis Overview 1. Depression 2. Diabetes Mellitus Type 2 With Diabetic Neuropathy (HCC) 3. 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 Hyperlipidemia 5. Obesity Unspecified 6. Peripheral Vascular Disease (HCC) - Primary 11/01/17- Right lower etremity angiogram, recanalization of the PT and anterior tibial artery with balloon angioplasty. Dr. Roper 11/05/17- Angiogram of the Right Lower Extremity with Lef PATIENT SERVICE TECHNICIAN PST and Right AT access, Balloon Angioplasty of the Anterior Tibial Artery. Dr. Ley 7. Stenosis Spinal Lumbar With Neurogenic Claudication 8. Insomnia 9. Constipation 10. Fusion Lumbar Spine Status Post 11. Infection Following A Procedure Other Surgical Site Initial Encounter CODE STATUS: FULL CODE REVIEW OF SYSTEMS Complete review of systems was performed, as allowable by patient's cognitive status, and incorporating collateral history if applicable. Relevant positives are noted elsewhere in this note, otherwise negative. OBJECTIVE Vital signs provided by facility: BP 98/56 Pulse 71 Temp 37 ??C Resp 18 Wt 115 kg SpO2 91% BMI 33.43 kg/m?? PHYSICAL EXAM Constitutional General: He is not in acute distress. Appearance: Normal appearance. He is not ill-appearing. HENT Nose: Nose normal. No congestion or rhinorrhea. Eyes Conjunctiva/sclera: Conjunctivae normal. Cardiovascular Rate and Rhythm: Normal rate and regular rhythm. Pulmonary Effort: Pulmonary effort is normal. No respiratory distress. Musculoskeletal Right lower leg: Edema present. Left lower leg: Edema present. Comments: Wearing Velcro leg wraps Incision is healing well, no signs of infection, sutures are still intact, nursing to remove today Skin Coloration: Skin is pale. Neurological Mental Status: He is alert. Mental [...] and present management will be continued. #1 Peripheral Vascular Disease (HCC) Overview: 11/01/17- Right lower etremity angiogram, recanalization of the PT and anterior tibial artery with balloon angioplasty. Dr. Roper 11/05/17- Angiogram of the Right Lower Extremity with Lef PATIENT SERVICE TECHNICIAN PST and Right AT access, Balloon Angioplasty of the Anterior Tibial Artery. Dr. Ley Assessment & Plan: Continue aspirin and blood pressure control #2 Obesity Unspecified Assessment & Plan: He would benefit from weight loss #3 Constipation Assessment & Plan: -Continue current bowel regimen. 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 -Continue Basaglar 45 units at bedtime #6 Infection Following A Procedure Other Surgical Site Initial Encounter Assessment & Plan: Vancomycin is complete Continue Bactrim twice a day Follow up with surgeon as scheduled Incision looks like it is healing without signs of infection today #7 Hyperlipidemia Assessment & Plan: Continue atorvastatin #8 Depression Assessment & Plan: Continue duloxetine #9 Insomnia Assessment & Plan: Continue p.r.n. zolpidem, he was using this at home #10 Stenosis Spinal Lumbar With Neurogenic Claudication Assessment & Plan: Assist of 1 with walker #11 Fusion Lumbar Spine Status Post Assessment & Plan: Continue physical therapy and occupational therapy at home Discontinue oxycodone and methocarbamol Patient plans to discharge on 10/20/24 to home with Equipment needed: Wheelchair, DME script completed through external provider portal Reviewed meds. 30 day supply of current meds sent to [facility] in [place] (Bactrim) Ok to discharge with current meds and treatments Follow up with primary care provider in 7-10 days Therapy did recommend patient have home care physical therapy and occupational therapy to develop ahome exercise program. They will have home health nursing for medication management and home healthaide for assistance with bathing. Patient is considered homebound as they require a device for ambulation. Physical therapy: Continued PT services are necessary in order to analyze gait pattern, assess functional abilities, evaluate need for assistive device, facilitate discharge planning, facilitate independence with all functional mobility, improved dynamic balance, increased coordination, increase functional activity intolerance, increase independence with gait, increase lower extremity range of motion and strength, minimize falls and promote safety awareness in order to enhance patient's qualityof life by and improved ability to facilitate increased participation with functional daily activities. Occupational therapy: Continued OT services are necessary to improve rehab potential, increase safety awareness and restore cognitive and perceptual abilities in order to facilitate ability to live in an environment with at least amount of supervision and assistance. Due to the documented physical impairments and associated functional deficits, without skilled therapeutic intervention, the patient is at risk for: Depression, falls and increased dependency upon caregivers. PATIENT EDUCATION Ready to learn, no apparent learning barriers were identified; learning preferences include listening. Explained diagnosis and treatment plan; patient/child/caregiver expressed understanding of the content. Billing based on: Time, including the following tasks: reviewing the electronic medical record, updating the EPIC Problem List, reviewing written facility- provided information, reviewing information in facility EMR, medication reconciliation, obtaining collateral history from facility staff, obtaining collateral history from family member(s), Interviewing and examining the patient, placing orders, communicating orders to facility, providing education/counseling to patient, family, and/or facility staff. Total time 45 minutes. OR IT SECURITY ANALYST documented in this encounter Miscellaneous Notes * Assessment & Plan Note - Ofe Blas APRN, C.N.P. - 10/19/2024 12:56 PM CSTAssociated Problem(s): Fusion Lumbar Spine Status Post Continue physical therapy and occupational therapy at home Discontinue oxycodone and methocarbamol OR IT SECURITY ANALYST * Assessment & Plan Note - Ofe Blas APRN, C.N.P. - 10/19/2024 12:54 PM CSTAssociated Problem(s): Stenosis Spinal Lumbar With Neurogenic Claudication Assist of 1 with walker OR IT SECURITY ANALYST * Assessment & Plan Note - Ofe Blas APRN C.N.P. - 10/19/2024 12:53 PM CSTAssociated Problem(s): Insomnia Continue p.r.n. zolpidem, he was using this at home OR IT SECURITY ANALYST * Assessment & Plan Note - Ofe Blas APRN C.N.P. - 10/19/2024 12:53 PM CSTAssociated Problem(s): Depression Continue duloxetine OR IT SECURITY ANALYST * Assessment & Plan Note - Ofe Blas APRN C.N.P. - 10/19/2024 12:53 PM CSTAssociated Problem(s): Hyperlipidemia Continue atorvastatin OR IT SECURITY ANALYST * Assessment & Plan Note - Ofe Blas APRN C.N.P. - 10/19/2024 12:53 PM CSTAssociated Problem(s): Infection Following A Procedure Other Surgical Site Initial Encounter Vancomycin is complete Continue Bactrim twice a day Follow up with surgeon as scheduled Incision looks like it is healing without signs of infection today OR IT SECURITY ANALYST OR IT SECURITY ANALYST * Assessment & Plan Note - Ofe Blas APRN C.N.P. - 10/19/2024 12:52 PM CSTAssociated Problem(s): Diabetes Mellitus Type 2 With Diabetic Neuropathy (HCC) -Start Novolog 15 units three times a day with meals in addition to sliding scale insulin. -Continue Basaglar 45 units at bedtime OR IT SECURITY ANALYST * Assessment & Plan Note - Ofe Blas APRN, C.N.P. 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 - 10/19/2024 12:51 PM CSTAssociated Problem(s): Constipation -Continue current bowel regimen. OR IT SECURITY ANALYST * Assessment & Plan Note - Ofe Blas APRN, C.N.P. - 10/19/2024 12:51 PM CSTAssociated Problem(s): Obesity Unspecified He would benefit from weight loss OR IT SECURITY ANALYST * Assessment & Plan Note - Ofe Blas APRN, C.N.P. - 10/19/2024 12:51 PM CSTAssociated Problem(s): Peripheral Vascular Disease (HCC) Continue aspirin and blood pressure control OR IT SECURITY ANALYST documented in this encounter Plan of Treatment Upcoming Encounters Date Type Department Care Team (Late st Contact Info) Description 12/04/2024 1:45 PM CDT Office Visit Department of Dermatology in [address] [phone] Mackenzie Flynn M.D. 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 [address] [place] [phone] PCP - General Family Medicine 10/04/24 10/19/24 documented as of this encounter
--- OUTSIDE RECORDS SUMMARY | 2024-11-08 19:00 | XMS_ITS | Encounter Summary ---
Author Organization [facility] Address [address] [place] [address] Care Team Providers Care Manager Pathology Name Role Phone Ofe Blas APRN, C.N.P. Primary Care Provi [facility] Encounter Details Date Type Department Care Team (Latest Contact Info) Description 09/28/2024 8:00 AM JAVA PROGRAMMER ANALYST External Outreach [facility] in [place] [address] [place] [phone] Yaneli Carmona D.O. [address] [place] [phone] Fusion Lumbar Spine Status Post (Primary Dx); Spondylolisthesis Lumbar Region; Infection Wound Postoperative Subsequent; Diabetes Mellitus Type 2 With Diabetic Neuropathy (HCC); Constipation; Peripheral Vascular Disease (HCC); Injury Brain Traumatic Personal History; Anxiety; Depression; Insomnia; Hyperlipidemia; Incontinence Urinary; Personal History Of Malignant Neoplasm Of Prostate; Edema Social History Tobacco Use Types Packs/Day Years Used Date Smoking Tobacco: Former Smokeless Tobacco: Never Nutrition Answer Date Recorded Nutrition: EVOO Fat Source 13 05/14 Nutrition: Servings of Fruits/Vegetables per Day Not on file 05/14/2020 Dental Answer Date Recorded Dental: Regular Dentist Unknown 10/19/19 21 Sex and Gender Information Value Date Recorded Sex Assigned at Not on file Legal Sex Male 6:41 AM JAVA PROGRAMMER ANALYST Gender Identity Not on file Sexual Orientation Not on file documented as of this encounter Last Filed Vital Signs Vital Sign Reading Time Taken Comments Blood Pressure 116/71 09/28/2024 10:00 AM JAVA PROGRAMMER ANALYST Pulse 71 09/28/2024 10:00 AM JAVA PROGRAMMER ANALYST Temperature 36.5 C (97.7 F) 09/28/2024 10:00 AM JAVA PROGRAMMER ANALYST Respiratory Rate 16 09/28/2024 10:00 AM JAVA PROGRAMMER ANALYST Oxygen Saturation 96% 09/28/2024 10:00 AM JAVA PROGRAMMER ANALYST Inhaled Oxygen Concentration - - Weight 116 kg (256 lb 3.2 oz) 09/28/2024 10:00 A M JAVA PROGRAMMER ANALYST Height - - Body Mass Index 33.8 09/11/2024 8:28 AM JAVA PROGRAMMER ANALYST documented in this encounter Progress Notes * Yaneli Carmona D.O. - 09/28/2024 8:00 AM CST SUBJECTIVE CHIEF COMPLAINT / REASON FOR VISIT I am asked to see Matheus, for a a New Admission visit.Chronic medical conditions include type 2 diabetes, CVD, and anxiety. Visit Type: In Person Face-to- Face visit HISTORY OF PRESENT ILLNESS Matheus is a 79 y.o. male who currently resides at [facility] in [place], [place]. Obtained from Patient and SBAR: Patient underwent decompression-lateral recess from L2-L5 and posterior spine fusion with instrumentation L4-L5, transforaminal lumbar interbody fusion levels L4-L5 on 09/06/2024 for lumbar stenosis with neurogenic claudication. He was discharged to [facility] for further rehabilitation. On 09/23/24, he was noted to have increased redness and warmth to his surgical site. Was noting drainage fromthe area. Patient was initiated on cephalexin 500 mg three times daily for 10 days. Wound culture was obtained, which grew MRSA. Patient was transitioned to Bactrim, cephalexin discontinued. Patient has type 2 diabetes. A1c was 7.4 in July 2024 per external records. Does have intermittent elevated blood sugars but mostly within goal. Diagnosis Overview 1. Anxiety 2. Depression 3. Diabetes Mellitus Type 2 With Diabetic Neuropathy (HCC) 4. Hyperlipidemia 5. Incontinence Urinary 6. Peripheral Vascular Disease (HCC) 11/01/17- Right lower etremity angiogram, recanalization of the PT and anterior tibial artery with balloon angioplasty. Dr. Roper 11/05/17- Angiogram of the Right Lower Extremity with Lef CERTIFIED PESTICIDE APPLICATOR and Right AT access, Balloon Angioplasty of the Anterior Tibial Artery. Dr. Ley 7. Injury Brain Traumatic Personal History 8. Insomnia 9. Edema 10. Constipation 11. Fusion Lumbar Spine Status Post - Primary I reviewed EPIC notes as well as any facility-provided information (if applicable), lab/test results, and images/imaging reports. The following portions of the patient's history were reviewed and updated as appropriate: allergies, current medications, medical history, social history, surgical history and problem list. CODE STATUS: Full Code REVIEW OF SYSTEMS Complete review of systems was performed, as allowable by patient's cognitive status, and incorporating collateral history if applicable. Relevant positives are noted elsewhere in this note, otherwise negative. OBJECTIVE VITAL SIGNS Vitals: 09/28/24 1000 BP: 116/71 Pulse: 71 Temp: 36.5 ??C Resp: 16 Weight: 116 kg SpO2: 96% PHYSICAL EXAMINATION Vitals reviewed. Constitutional Appearance: Normal appearance. HENT Head: Normocephalic and atraumatic. Eyes Extraocular Movements: Extraocular movements intact. Conjunctiva/sclera: Conjunctivae normal. Cardiovascular Rate and Rhythm: Normal rate and regular rhythm. Heart sounds: Normal heart sounds. Pulmonary Effort: Pulmonary effort is normal. Breath sounds: Normal breath sounds. Abdominal General: Bowel sounds are normal. There is no distension. Palpations: Abdomen is soft. Tenderness: There is no abdominal tenderness. Musculoskeletal Comments: 1+ pitting edema. Skin General: Skin is warm and dry. Comments: Slight erythema surrounding top aspect of surgical incision, no active drainage. Neurological Mental Status: He is alert. Labs: Lab Results Component Value Date WBC 7.9 09/26/2024 HGB 12.2 (L) 09/26/2024 HCT 37.0 (L) 09/26/2024 MCV 95.1 09/26/2024 PLT 332 (H) 09/26/2024 Lab Results Component Value Date NA 141 09/26/2024 KSERUM 4.1 09/08/2024 KPLASMA 4.1 09/26/2024 CL 105 09/26/2024 BICARB 30 (H) 09/26/2024 CREATININE 1.00 09/26/2024 EGFR 76 09/26/2024 BUN 12 09/26/2024 ANIONGAP 6 (L) 09/26/2024 GLUCOSE 101 09/26/2024 CALCIUM 8.7 (L) 09/26/2024 ASSESSMENT / PLAN #1 Fusion Lumbar Spine Status Post #2 Spondylolisthesis Lumbar Region #3 Infection Wound Postoperative Subsequent - Status post decompression-lateral recess from L2-L5 and posterior spine fusion with instrumentation L4-L5, transforaminal lumbar interbody fusion levels L4-L5 on 09/06/2024 for lumbar stenosis withneurogenic claudication. - There was concern for infection at incision site. Initially started on cephalexin. Wound culture grew MRSA, so transitioned to Bactrim. Appears to improving on exam today. Continue to monitor. - Continue Bactrim twice daily for total of 7 days. - He had follow up with Orthopedic Surgery 09/25/24 with no concerns. - Continue acetaminophen 1000 mg every 8 hours. - Continue Lyrica 150 mg twice daily. - Oxycodone as needed. Last use 09/26/2024. - Continue methocarbamol as needed. #4 Diabetes Mellitus Type 2 With Diabetic Neuropathy (HCC) - A1c was 7.4 in July 2024. - Continue Basaglar 40 units at bedtime. - Continue NovoLog sliding scale. #5 Constipation - Continue Senokot-S. - Continue MiraLax daily. #6 Peripheral Vascular Disease (HCC) - Continue aspirin 81 mg daily #7 Injury Brain Traumatic Personal History #8 Anxiety #9 Depression - Continue duloxetine 60 mg daily. #10 Insomnia - Continue Ambien 5 mg at bedtime. Has been on this chronically for years per patient. #11 Hyperlipidemia - Continue atorvastatin 80 mg daily. #12 Incontinence Urinary - Continue oxybutynin 10 mg at bedtime. #13 Personal History Of Malignant Neoplasm Of Prostate - Completed radiation in January 2015, follows with urology # 14 Edema - Lasix was initiated 09/21/2024. Tolerating well. Edema improving per patient. Repeat BMP appropriate. Continue Lasix 20 mg daily. Yaneli Carmona D.O. PROGRAMMER ANALYST documented in this encounter Plan of Treatment Upcoming Encounters Date Type Department Care Team (Late st Contact Info) Description 12/04/2024 1:45 PM CDT Office Visit Department of Dermatology in [address] [phone] Mackenzie Flynn M.D. [address] [place] [phone] Discharge Disposition: Home or Self Care documented as of this encounter Visit Diagnoses Diagnosis Fusion Lumbar Spine Status Post- Primary Spondylolisthesis Lumbar Region Infection Wound Postoperative Subsequent Diabetes Mellitus Type 2 With Diabetic Neuropathy (HCC) Constipation Peripheral Vascular Disease (HCC) Injury Brain Traumatic Personal History Anxiety Depression Insomnia Hyperlipidemia Incontinence Urinary Personal History Of Malignant Neoplasm Of Prostate Edema documented in this encounter Care Teams Manager Pathology Relationship Specialty Start Date End Date Ofe Blas APRN, C.N.P. [address] [place] [phone] PCP - General Family Medicine 09/09/24 09/30/24 documented as of this encounter
--- OUTSIDE RECORDS SUMMARY | 2024-11-08 19:00 | XMS_ITS | Encounter Summary ---
Author Organization [facility] Address [address] [place] [address] Care Team Providers Care Automotive Brake Adjuster Name Role Phone Ofe Blas APRN, C.N.P. Primary Care Provi [facility] Encounter Details Date Type Department Care Team (Latest Contact Info) Description 10/05/2024 4:30 PM STUDENT MINISTRY PASTOR External Outreach [facility] in [place] [address] [place] [phone] Ofe Blas APRN, C.N.P. 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); Constipation; Depression; Edema; Insomnia Social History Tobacco Use Types Packs/Day Years Used Date Smoking Tobacco: Former Smokeless Tobacco: Never Nutrition Answer Date Recorded Nutrition: EVOO Fat Source 13 05/14 Nutrition: Servings of Fruits/Vegetables per Day Not on file 05/14/2020 Dental Answer Date Recorded Dental: Regular Dentist Unknown 10/19/19 21 Sex and Gender Information Value Date Recorded Sex Assigned at Not on file Legal Sex Male 6:41 AM STUDENT MINISTRY PASTOR Gender Identity Not on file Sexual Orientation Not on file documented as of this encounter Last Filed Vital Signs Vital Sign Reading Time Taken Comments Blood Pressure 112/74 10/05/2024 9:53 AM STUDENT MINISTRY PASTOR Pulse 76 10/05/2024 9:53 AM STUDENT MINISTRY PASTOR Temperature 36.4 C (97.6 F) 10/05/2024 9:53 AM STUDENT MINISTRY PASTOR Respiratory Rate 18 10/05/2024 9:53 AM STUDENT MINISTRY PASTOR Oxygen Saturation 94% 10/05/2024 9:53 AM STUDENT MINISTRY PASTOR Inhaled Oxygen Concentration - - Weight 112 kg (246 lb) 10/05/2024 9:53 AM STUDENT MINISTRY PASTOR Height - - Body Mass Index 32.46 09/11/2024 8:28 AM STUDENT MINISTRY PASTOR documented in this encounter Progress Notes * Emory Chan L.P.N. - 10/05/2024 4:30 PM CST SNF VISIT Post Hospital Follow up Visit This resident was recently hospitalized at: Outside Hospital [facility] Date of hospitalization: 09/30-10/04/2024 Reason for hospitalization: Surgical wound infection Full Code Most recent labs: Lab Results Component Value Date WBC 7.1 09/29/2024 HGB 12.2 (L) 09/29/2024 HCT 37.8 09/29/2024 MCV 96 09/29/2024 PLT 293 09/30/2024 Lab Results Component Value Date NA 141 09/30/2024 KSERUM 3.9 09/30/2024 KPLASMA 4.1 09/26/2024 CL 105 09/30/2024 BICARB 28 09/30/2024 CREATININE 1.16 09/30/2024 BUN 11 09/30/2024 ANIONGAP 8 09/30/2024 GLUCOSE 106 (H) 09/30/2024 CALCIUM 8.8 09/30/2024 Active issues needing follow up: No Follow-up Appointments Arranged: No Active wound requiring treatment: Yes - vancomycin for incision infection Wounds/L/D/A: Incision: lumbar. Signs or symptoms of infection: yes, currently being treated. Incision care instructions reviewed: yes. ENT MINISTRY PASTOR * Ofe Blas APRN, C.N.P. - 10/05/2024 4:30 PM CST The resident is being seen at [place], [place] for a Post hospitalization Follow up Visit Type: In Person Face-to- Face visit Obtained from Patient, Nursing, and SBAR: DATE OF VISIT: 10/05/2024 SUBJECTIVE CHIEF COMPLAINT / REASON FOR VISIT Matheus Ballard is a 79 y.o. male who presents for post hospital. Date of hospitalization: 09/30-10/04/2024 Reason for hospitalization: Surgical wound infection He [...] not improve and he was hospitalized at [facility], he was then transferred to [place] and had a lumbar irrigation and debridement and closure on 10/01/2024. He will be on vancomycin every 12 hours. He is seen in his room. He is doing well. He is an assist of 1 with ambulation and transfers. He isnot really having much incisional pain. He does have a headache today, he has a history of traumatic brain injury and says he gets intermittent headaches. He is having regular bowel movements and eating and drinking without concerns. Spoke with floor nurse Patricia who had just changed his incisional dressing. She stated the incisionlooked great, no open areas or signs of infection. I personally reviewed the most recent following items: clinical notes The following medical problems were actively reviewed (including updating overview sections as necessary) and addressed as part of today's visit: Diagnosis Overview 1. Primary Malignant Neoplasm Of Prostate (HCC) 2. Depression 3. 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 Hyperlipidemia 5. Edema 6. Constipation 7. Fusion Lumbar Spine Status Post 8. Infection Following A Procedure Other Surgical Site Initial Encounter - Primary CODE STATUS: FULL CODE OBJECTIVE VITAL SIGNS BP 112/74 Pulse 76 Temp 36.4 ??C Resp 18 Wt 112 kg SpO2 94% BMI 32.46 kg/m?? Vital signs provided by facility Physical Exam Constitutional General: He is not in acute distress. Appearance: Normal appearance. He is not ill-appearing. HENT Nose: Nose normal. No congestion or rhinorrhea. Eyes Conjunctiva/sclera: Conjunctivae normal. Cardiovascular Rate and Rhythm: Normal rate and regular rhythm. Heart sounds: Normal heart sounds. Pulmonary Effort: Pulmonary effort is normal. No respiratory distress. Abdominal General: Bowel sounds are normal. Palpations: Abdomen is soft. Musculoskeletal General: Deformity (right charcot foot) present. Skin Coloration: Skin is pale. Comments: Lumbar spine incision is covered. Dressing was just changed by nurse. No shadow drainage Neurological Mental Status: He is alert. Mental status is at baseline. Psychiatric Mood and Affect: Mood normal. Behavior: Behavior normal. Thought Content: Thought content normal. Judgment: Judgment normal. 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 Depression Continue duloxetine Edema Continue furosemide Insomnia Continue p.r.n. zolpidem, follow up in 2 weeks PATIENT EDUCATION Ready to learn, no apparent learning barriers were identified; learning preferences include listening. Explained diagnosis and treatment plan; patient/child/caregiver expressed understanding of the content. Billing based on: Medical decision-making. See clinical note for justification. Any additional supporting information is noted below. ENT MINISTRY PASTOR documented in this encounter Miscellaneous Notes * Assessment & Plan Note - Ofe Blas APRN, C.N.P. - 10/05/2024 4:30 PM CSTAssociated Problem(s): Infection Following A Procedure Other Surgical Site Initial Encounter Continue vancomycin as scheduled Follow up with spine surgeon as recommended ENT MINISTRY PASTOR ENT MINISTRY PASTOR * Assessment & Plan Note - Ofe Blas APRN, C.N.P. - 10/05/2024 4:30 PM CSTAssociated Problem(s): Fusion Lumbar Spine Status Post Continue physical therapy and occupational therapy Continue as needed oxycodone for pain control Continue as needed methocarbamol for muscle spasms ENT MINISTRY PASTOR ENT MINISTRY PASTOR * Assessment & Plan Note - Ofe Blas APRN C.N.P. - 10/05/2024 4:30 PM CSTAssociated Problem(s): Hyperlipidemia Continue atorvastatin ENT MINISTRY PASTOR ENT MINISTRY PASTOR * Assessment & Plan Note - Ofe Blas APRN, C.N.P. 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 - 10/05/2024 4:30 PM CSTAssociated Problem(s): Constipation -Continue current bowel regimen. ENT MINISTRY PASTOR ENT MINISTRY PASTOR * Assessment & Plan Note - Ofe Blas APRN, C.N.P. - 10/05/2024 4:30 PM CSTAssociated Problem(s): Depression Continue duloxetine ENT MINISTRY PASTOR ENT MINISTRY PASTOR * Assessment & Plan Note - Ofe Blas APRN, C.N.P. - 10/05/2024 4:30 PM CSTAssociated Problem(s): Edema Continue furosemide ENT MINISTRY PASTOR ENT MINISTRY PASTOR * Assessment & Plan Note - Ofe Blas APRN, C.N.P. - 10/05/2024 4:30 PM CSTAssociated Problem(s): Primary Malignant Neoplasm Of Prostate (HCC) Completed radiation in January 2015, follows with urology ENT MINISTRY PASTOR ENT MINISTRY PASTOR * Assessment & Plan Note - Ofe Blas APRN, C.N.P. - 10/05/2024 4:30 PM CSTAssociated Problem(s): Insomnia Continue p.r.n. zolpidem, follow up in 2 weeks ENT MINISTRY PASTOR ENT MINISTRY PASTOR documented in this encounter Plan of Treatment Upcoming Encounters Date Type Department Care Team (Late st Contact Info) Description 12/04/2024 1:45 PM CDT Office Visit Department of Dermatology in [address] [phone] Mackenzie Flynn M.D. 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 [address] [place] [phone] PCP - General Family Medicine 10/04/24 10/19/24 documented as of this encounter
--- OUTSIDE RECORDS SUMMARY | 2024-11-08 19:00 | XMS_ITS | Encounter Summary ---
Author Organization [facility] Address [address] [place] [address] Care Team Providers Care Water Meter Installer Name Role Phone Ofe Blas APRN, C.N.P. Primary Care [facility] Encounter Details Date Type Department Care Team (Late st Contact Info) Description 09/15/2024 Orders Only [facility] in [place] [address] [place] [phone] Ofe Blas APRN, C.N.P. [address] [place] [phone] Social History Tobacco Use Types Packs/Day Years Used Date Smoking Tobacco: Former Smokeless Tobacco: Never Nutrition Answer Date Recorded Nutrition: EVOO Fat Source 13 05/14 Nutrition: Servings of Fruits/Vegetables per Day Not on file 05/14/2020 Dental Answer Date Recorded Dental: Regular Dentist Unknown 10/19/19 21 Sex and Gender Information Value Date Recorded Sex Assigned at Not on file Legal Sex Male 6:41 AM PROFESSOR OF HISTORY Gender Identity Not on file Sexual Orientation Not on file documented as of this encounter Plan of Treatment Upcoming Encounters Date Type Department Care Team (Late st Contact Info) Description 12/04/2024 1:45 PM CDT Office Visit Department of Dermatology in [address] [phone] Mackenzie Flynn M.D. 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 [address] [place] [phone] PCP - General Family Medicine 09/09/24 09/30/24 documented as of this encounter
--- OUTSIDE RECORDS SUMMARY | 2024-11-08 19:00 | XMS_ITS | Encounter Summary ---
Author Organization [facility] Address [address] [place] [address] Care Team Providers Care Console Operator Name Role Phone None Reported, Pcp Primary Care Provider Unavail able Encounter Details Date Type Department Care Team (Late st Contact Info) Description 09/26/2024 Clinical Communication [facility] [place] [address] [place] [address] [place] [phone] Erika Blanchard APRN, C.N.P. [address] [place] [phone] Social History Tobacco Use Types Packs/Day Years Used Date Smoking Tobacco: Former Smokeless Tobacco: Never Nutrition Answer Date Recorded Nutrition: EVOO Fat Source 13 05/14 Nutrition: Servings of Fruits/Vegetables per Day Not on file 05/14/2020 Dental Answer Date Recorded Dental: Regular Dentist Unknown 10/19/19 21 Sex and Gender Information Value Date Recorded Sex Assigned at Not on file Legal Sex Male 6:41 AM RESEARCH SUPPORT SPECIALIST Gender Identity Not on file Sexual Orientation Not on file documented as of this encounter Miscellaneous Notes * Telephone Encounter - Erika Blanchard APRN, C.N.P. - 09/26/2024 11:57 AM CST Sarah addressed wound culture and sent orders to Violet. ARCH SUPPORT SPECIALIST documented in this encounter Plan of Treatment Upcoming Encounters Date Type Department Care Team (Late st Contact Info) Description 12/04/2024 1:45 PM CDT Office Visit Department of Dermatology in [address] [phone] Mackenzie Flynn M.D. [address] [place] [phone] Discharge Disposition: Home or Self Care documented as of this encounter Visit Diagnoses Not on filedocumented in this encounter Additional Health Concerns Infection Onset Date Last Indicated Resolved Time MRSA 09/24/2024 09/24/2024 09/27/2024 6:29 AM RESEARCH SUPPORT SPECIALIST documented as of this encounter Care Teams Console Operator Relationship Specialty Start Date End Date None Reported, Pcp PCP - General Family Medicine 10/20/24 documented as of this encounter
--- OUTSIDE RECORDS SUMMARY | 2024-11-08 19:00 | XMS_ITS | Encounter Summary ---
Author Organization [facility] Address [address] [place] [address] Care Team Providers Care Paperhanger And Painter Name Role Phone Ofe Blas APRN C.N.P. Primary Care Pro[facility] Encounter Details Date Type Department Care Team (Late st Contact Info) Description 10/17/2024 Results Follow-Up Senior Services in [place] [address] [place] [phone] Ofe Blas APRN, C.N.P. [address] [place] [phone] Basic Metabolic Panel, CRP (C-Reactive Protein), CBC with Differential, Blood, Vancomycin, Trough Social History Tobacco Use Types Packs/Day Years Used Date Smoking Tobacco: Former Smokeless Tobacco: Never Nutrition Answer Date Recorded Nutrition: EVOO Fat Source 13 05/14 Nutrition: Servings of Fruits/Vegetables per Day Not on file 05/14/2020 Dental Answer Date Recorded Dental: Regular Dentist Unknown 10/19/19 21 Sex and Gender Information Value Date Recorded Sex Assigned at Not on file Legal Sex Male 6:41 AM RADIOLOGICAL ENGINEER Gender Identity Not on file Sexual Orientation Not on file documented as of this encounter Plan of Treatment Upcoming Encounters Date Type Department Care Team (Late st Contact Info) Description 12/04/2024 1:45 PM CDT Office Visit Department of Dermatology in [address] [phone] Mackenzie Flynn M.D. [address] [place] [phone] Discharge Disposition: Home or Self Care documented as of this encounter Visit Diagnoses Not on filedocumented in this encounter Care Teams Paperhanger And Painter Relationship Specialty Start Date End Date Ofe Blas APRN, C.N.P. [address] [place] [phone] PCP - General Family Medicine 10/04/24 10/19/24 documented as of this encounter
--- OUTSIDE RECORDS SUMMARY | 2024-11-08 19:00 | XMS_ITS | Encounter Summary ---
Author Organization [facility] Address [address] [place] [address] Care Team Providers Care Resource Program Teacher Name Role Phone Ofe Blas APRN, C.N.P. Primary Care Provi [facility] Encounter Details Date Type Department Care Team (Latest Contact Info) Description 10/17/2024 12:44 AM BILINGUAL TEACHER - 10/17/2024 11:59 PM BILINGUAL TEACHER Hospital Encounter Department of Laboratory Medicine in [place], [place] [address] [place] [phone] Ofe Blas APRN, C.N.P. 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) VANCOMYCIN, TROUGH, S Routine 10/17/2024 6:54 AM BILINGUAL TEACHER Infection Following A Procedure Other Surgical Site Subsequent Encounter Infection Skin 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 LAB BLOOD NON ADD-O N Final Result [facility] [address] [place] [address], [facility] NPRG [facility] [address] [place] [address] * (ABNORMAL) CBC with Differential, Blood (10/17/2024 6:54 AM BILINGUAL TEACHER) Hemoglobin 13.1(L) 13.2 - 16.6 g/dL 10/17/2024 7:42 AM BILINGUAL TEACHER NPRG Hematocrit 40.3 38.3 - 48.6 % 10/17/2024 7:42 AM BILINGUAL TEACHER NPRG Erythrocytes 4.22(L) 4.35 - 5.65 x10(12)/L 10/17/2024 7:42 AM BILINGUAL TEACHER NPRG MCV 95.5 78.2 - 97.9 fL 10/17/2024 7:42 AM BILINGUAL TEACHER NPRG RBC Distrib Width 13.4 11.8 - 14.5 % 10/17/2024 7:42 AM BILINGUAL TEACHER NPRG Platelet Count 241 135 - 317 x10(9)/L 10/17/2024 7:42 AM BILINGUAL TEACHER NPRG Leukocytes 8.1 3.4 - 9.6 x10(9)/L 10/17/2024 7:42 AM BILINGUAL TEACHER NPRG Neutrophils 4.34 1.56 - 6.45 x10(9)/L 10/17/2024 7:42 AM BILINGUAL TEACHER NPRG Lymphocytes 2.23 0.95 - 3.07 x10(9)/L 10/17/2024 7:42 AM BILINGUAL TEACHER NPRG Monocytes 0.86(H) 0.26 - 0.81 x10(9)/L 10/17/2024 7:42 AM BILINGUAL TEACHER NPRG Eosinophils 0.60(H) 0.03 - 0.48 x10(9)/L 10/17/2024 7:42 AM BILINGUAL TEACHER NPRG Basophils 0.08 0.01 - 0.08 x10(9)/L 10/17/2024 7:42 AM BILINGUAL TEACHER NPRG Blood (Blood, Venous) 10/17/2024 6:54 AM BILINGUAL TEACHER 10/17/2024 7:14 AM BILINGUAL TEACHER Ofe Blas APRN, C.N.P. LAB BLOOD ADD-ON Fi nal Result [facility] [address] [place] [address], [facility] NPRG [facility] [address] [place] [address] * (ABNORMAL) CRP (C-Reactive Protein) (10/17/2024 6:54 AM BILINGUAL TEACHER) Pathologist [facility] C-Reactive Protein (CRP), P 12.7(H) <5.0 mg/L 10/17/2024 7:41 AM BILINGUAL TEACHER NPRG Blood (Blood, Venous) 10/17/2024 6:54 AM BILINGUAL TEACHER 10/17/2024 7:14 AM BILINGUAL TEACHER us Ofe Blas APRN, C.N.P. LAB BLOOD ADD-ON Fi nal Result [facility] [address] [place] [address], [facility] NPRG [facility] [address] [place] [address] * (ABNORMAL) Basic Metabolic Panel (10/17/2024 6:54 AM BILINGUAL TEACHER) Potassium, P 4.3 3.6 - 5.2 mmol/L 10/17/2024 7:41 AM BILINGUAL TEACHER NPRG Sodium, P 141 135 - 145 mmol/L 10/17/2024 7:41 AM BILINGUAL TEACHER NPRG Chloride, P 104 98 - 107 mmol/L 10/17/2024 7:41 AM BILINGUAL TEACHER NPRG Bicarbonate, P 30(H) 22 - 29 mmol/L 10/17/2024 7:41 AM BILINGUAL TEACHER NPRG Anion Gap, P 7 7 - 15 10/17/2024 7:41 AM BILINGUAL TEACHER NPRG BUN (Blood Urea Nitrogen), P 16 8 - 24 mg/dL 10/17/2024 7:41 AM BILINGUAL TEACHER NPRG Creatinine 1.13 0.74 - 1.35 mg/dL 10/17/2024 7:41 AM BILINGUAL TEACHER NPRG Estimated GFR (eGFR) 65 >=60 mL/min/BSA 10/17/2024 7:41 AM BILINGUAL TEACHER NPRG Comment: Estimated GFR calculated using the 2020 CKD_EPI creatinine equation. Calcium, Total, P 9.3 8.8 - 10.2 mg/dL 10/17/2024 7:41 AM BILINGUAL TEACHER NPRG Glucose, P 144(H) 70 - 140 mg/dL 10/17/2024 7:41 AM BILINGUAL TEACHER NPRG Blood (Blood, Venous) 10/17/2024 6:54 AM BILINGUAL TEACHER 10/17/2024 7:14 AM BILINGUAL TEACHER us Ofe Blas APRN, C.N.P. 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 [address] [place] [phone] PCP - General Family Medicine 10/04/24 10/19/24 documented as of this encounter
--- OUTSIDE RECORDS SUMMARY | 2024-11-08 19:00 | XMS_ITS | Clinical Summary ---
Author Organization [facility] Address [address] [place] [address] Care Team Providers Care Desk Clerk Name Role Phone None Reported, Pcp Primary Care Provider Unavail able Source Comments Patient records contain information from all sites at [facility]. For routine questions regarding patient records, call [phone] during business hours, M-F 8:00 AM - 5:00 PM Central Time. Record requests for emergency care only can be directed to [phone] at any time.[facility] Allergies No known active allergies Medications ascorbic acid, vitamin C, (VITAMIN C) 1,000 mg tablet Take 1,000 mg by mouth daily. 09/10/19 25 Active aspirin 81 mg chewable tablet Chew 81 mg daily. 09/10/19 25 Active atorvastatin (LIPITOR) 80 mg tablet Take 80 mg by mouth at bedtime. 09/09/19 25 Active calcium carbonate-vitamin D3 1,500 mg (600 mg calcium)-200 unit per tablet Take 1 tablet by mouth daily with morning meal. 09/09/19 25 Active cholecalciferol, vitamin D3, 25 mcg (1,000 Unit) tablet Take 50 mcg by mouth daily. 03/12/20 14 Active oxybutynin (DITROPAN-XL) 10 mg 24 hr tablet Take 10 mg by mouth at bedtime. 12/31/19 18 Active BD ULTRA-FINE SHORT PEN NEEDLE 31 gauge x 5/16 needle 01/20/20 18 Active DULoxetine (CYMBALTA) [address] capsule Take 60 mg by mouth daily. 09/10/19 25 Active acetaminophen (TylenoL) 500 mg tablet Take 2 tablets by mouth every 6 (six) hours. Max Tylenol Dose: 4000 mg in 24 hours 09/09/19 Active sennosides-docusa te sodium (Senokot-S) 8.6-50 mg per tablet Take 2 tablets by mouth 2 (two) times a day. Hold for loose stools 09/09/19 Active vitamin B complex-folic acid 0.4 mg tablet Take 1 tablet by mouth daily. 09/09/19 Active polyethylene glycol (Miralax) 17 gram/dose oral powder Take 17 g by mouth daily. Dissolve each 17 g dose in 240 mL (8 ounces) of beverage. 09/11/19 Active pregabalin (Lyrica) 150 mg capsule Take 1 capsule (150 mg total) by mouth 2 (two) times a day. 60 capsule 2 09/15/19 Active furosemide (Lasix) 20 mg tablet Take 1 tablet (20 mg total) by mouth daily. 09/21/19 Active zolpidem (Ambien) 5 mg tablet Take 1 tablet (5 mg total) by mouth at bedtime as needed for sleep. 1 tablet by mouth as needed for sleep HS PRN 10/05/19 25 Active Basaglar KwikPen U-100 Insulin 100 unit/mL (3 mL) pen Inject 45 Units under the skin at bedtime. 10/09/19 25 2024 Active NovoLOG Flexpen U-100 Insulin 100 unit/mL (3 [...] 999 = 6 units and call MD 10/12/19 25 Active sulfamethoxazole- trimethoprim (Bactrim DS) 800-160 mg per tabletIndications :Infection Following A Procedure Other Surgical Site Initial Encounter Take 1 tablet by mouth 2 (two) times a day for 28 days. 56 tablet 10/19/19 25 2024 Active methocarbamoL (Robaxin) 500 mg tablet Take 0.5 tablets by mouth every 6 (six) hours as needed for muscle spasms (muscle spasms). 09/09/19 25 2024 Discontinued(T herapy completed) vancomycin 1 g vial for reconstitution Infuse 1,250 mg into a venous catheter every 12 (twelve) hours. 10/04/19 25 2024 oxyCODONE (Roxicodone) 5 mg immediate release tabletIndications :Acute Pain Exception Take 1 tablet (5 mg total) by mouth every 8 (eight) hours as needed for pain Indication: Acute Pain Exception. Give 1 tablet by mouth every 8 hours as needed for pain 10/05/19 25 2024 Discontinued(T herapy completed) NovoLOG Flexpen U-100 Insulin 100 unit/mL (3 mL) pen Sliding scale: Inject as per Sliding scale 10 units TID with meals AND If 0 - 149 = 0 Units 150-199= 1 unit 200-249= 2 units 250-299= 3 units 300-349= 4 units 350-399= 5 units 400 - 999 = &nbsp 10/09/19 25 2024 Discontinued alteplase (Cathflo Activase) 1 mg/mL injection Infuse 2 mg into a venous catheter once. Use 2 mg IV as needed for PICC line PRN for catheter clearance for 1 day. Instill 2 mg and allow to dwell for 30 min. If unable to aspirate blood, allow to dwell for 120 min. 10/04/19 25 2024 Discontinued(T herapy completed) sulfamethoxazole- trimethoprim (Bactrim DS) 800-160 mg per tablet Take 1 tablet by mouth 2 (two) times a day. 10/15/19 25 2024 Discontinued(R froylan) Hospital, Clinic, or Other Facility Administered Medication Ordered Dose Route Frequency Start Date End Date Status lidocaine-EPINEPHrine 1%-1:200,000 injection 2-50 mL (XYLOCAINE W/EPI) 2 - 50 mL Ifil As needed 04/04/2018 Acti ve Active Problems Problem Noted Date Diagnosed Date Infection Following A Proced ure Other Surgical Site Initial Encounter 09/30/2024 Assessment & Plan (10/19/2024 12:56 PM INSPECTOR SHELLS): Vancomycin is complete Continue Bactrim twice a day Follow up with surgeon as scheduled Incision looks like it is healing without signs of infection today Assessment & Plan (10/12/2024 11:04 AM INSPECTOR SHELLS): Continue vancomycin as scheduled Follow up with spine surgeon as recommended Labs per infectious disease Incision looks like it is healing without signs of infection today Assessment & Plan (10/05/2024 1:14 PM INSPECTOR SHELLS): Continue vancomycin as scheduled Follow up with spine surgeon as recommended Fusion Lumbar Spine Status Post 09/23/2024 Assessment & Plan (10/19/2024 12:56 PM INSPECTOR SHELLS): Continue physical therapy and occupational therapy at home Discontinue oxycodone and methocarbamol Assessment & Plan (10/05/2024 1:14 PM INSPECTOR SHELLS): Continue physical therapy and occupational therapy Continue as needed oxycodone for pain control Continue as needed methocarbamol for muscle spasms Edema 09/21/2024 Assessment & Plan (10/05/2024 1:14 PM INSPECTOR SHELLS): Continue furosemide Assessment & Plan (09/21/2024 12:53 PM INSPECTOR SHELLS): Bilateral lower extremity edema, worse on the right. History of lymphedema. -Start Furosemide 20mg daily. -Check BMP next week to monitor kidney function. -Continue with compression wraps and leg elevation. Assessment & Plan (09/21/2024 12:43 PM INSPECTOR SHELLS): Bilateral lower extremity edema, worse on the right. History of lymphedema. -Start Furosemide 20mg daily. -Check BMP next week to monitor kidney function. -Continue with compression wraps and leg elevation. Constipation 09/21/2024 Assessment & Plan (10/19/2024 12:51 PM INSPECTOR SHELLS): -Continue current bowel regimen. Assessment & Plan (10/05/2024 1:14 PM INSPECTOR SHELLS): -Continue current bowel regimen. Assessment & Plan (09/21/2024 12:53 PM INSPECTOR SHELLS): Initially constipated, then loose stools, now stable. -Continue current bowel regimen. Insomnia 09/11/2024 Assessment & Plan (10/19/2024 12:53 PM INSPECTOR SHELLS): Continue p.r.n. zolpidem, he was using this at home Assessment & Plan (10/05/2024 1:14 PM INSPECTOR SHELLS): Continue p.r.n. zolpidem, follow up in 2 weeks Assessment & Plan (09/11/2024 1:47 PM INSPECTOR SHELLS): Will schedule zolpidem 5 mg at bedtime, he was taking this at home prior to admission Stenosis Spinal Lumbar With Neurogenic Claudicat ion 09/07/2024 Assessment & Plan (10/19/2024 12:54 PM INSPECTOR SHELLS): Assist of 1 with walker Assessment & Plan (09/21/2024 12:53 PM INSPECTOR SHELLS): Limited mobility with walker, pain controlled, and incision healing well. No signs of infection. -Continue physical therapy. -Keep incision open to air as it is healing well with no signs of infection or drainage -Follow up with surgeon as schedule -Has 27 tablets of oxycodone Assessment & Plan (09/11/2024 1:45 PM INSPECTOR SHELLS): Post spinal surgery Will schedule acetaminophen 1000 mg 3 times a day Continue p.r.n. methocarbamol and oxycodone he has used these once since admission He is having constipation, has not had bowel movement since prior to surgery, staff is going to give him a suppository today, will schedule MiraLax 17 g daily Follow up with spinal surgery Peripheral Vascular Disease 02/27/2020 Overview (09/11/2024): 11/01/17- Right lower etremity angiogram, recanalization of the PT and anterior tibial artery with balloon angioplasty. Dr. Roper 11/05/17- Angiogram of the Right Lower Extremity with Lef PYTHON ARCHITECT and Right AT access, Balloon Angioplasty of the Anterior Tibial Artery. Dr. 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 10/28/2017 Assessment & Plan (10/19/2024 12:52 PM INSPECTOR SHELLS): Continue insulin glargine 45 units at bedtime Continue insulin aspart to 15 units three times a day and sliding scale three times a day with meals Continue pregabalin Assessment & Plan (10/12/2024 11:05 AM INSPECTOR SHELLS): Continue insulin glargine 45 units at bedtime Increase insulin aspart to 15 units three times a day and sliding scale three times a day with meals Continue pregabalin Follow up in 1 week Assessment & Plan (10/05/2024 1:14 PM INSPECTOR SHELLS): Continue insulin glargine 40 units at bedtime Insulin aspart 5 units three times a day and sliding scale three times a day with meals Continue pregabalin Assessment & Plan (09/11/2024 1:46 PM INSPECTOR SHELLS): Increase insulin glargine to 40 units at bedtime Insulin aspart sliding scale to change, see med list for this medication change Continue pregabalin Hyperlipidemia 10/28/2017 Assessment & Plan (10/19/2024 12:53 PM INSPECTOR SHELLS): Continue atorvastatin Assessment & Plan (10/05/2024 1:14 PM INSPECTOR SHELLS): Continue atorvastatin Assessment & Plan (09/11/2024 1:46 PM INSPECTOR SHELLS): Continue atorvastatin Incontinence Urinary 10/28/2017 Assessment & Plan (09/11/2024 1:45 PM INSPECTOR SHELLS): Continue oxybutynin Obesity Unspecified 10/28/2017 Assessment & Plan (10/19/2024 12:51 PM INSPECTOR SHELLS): He would benefit from weight loss Assessment & Plan (09/11/2024 1:43 PM INSPECTOR SHELLS): He would benefit from weight loss Injury Brain Traumatic Personal History 05/14/20 16 Primary Malignant Neoplasm Of Prostate 5 Assessment & Plan (10/05/2024 1:14 PM INSPECTOR SHELLS): Completed radiation in January 2015, follows with urology Assessment & Plan (09/11/2024 1:48 PM INSPECTOR SHELLS): Completed radiation in January 2015, follows with urology Diabetes Mellitus Type 2 With Diabetic Neuropath y 12/02/2012 Assessment & Plan (10/19/2024 12:52 PM INSPECTOR SHELLS): -Start Novolog 15 units three times a day with meals in addition to sliding scale insulin. -Continue Basaglar 45 units at bedtime Assessment & Plan (09/21/2024 12:53 PM INSPECTOR SHELLS): Images from the original note were not included. Blood sugars fluctuating with a high of 309. -Start Novolog 5 units three times a day with meals in addition to sliding scale insulin. -Continue Basaglar 40 units at bedtime Encounters Date Type Department Care Team Description 10/19/2024 10:30 AM INSPECTOR [facility]LLS External [facility]reach [facility] in [place] [address] [facility] [place] [address] Ofe Blas, SHOVEL OPERATOR, C.N.P. Peripheral Vascular Disease (HCC) (Primary Dx); Obesity Unspecified; Constipation; Diabetes Mellitus Type 2 With Other Diabetic Neurologic Complication (HCC); Diabetes Mellitus Type 2 With Diabetic Neuropathy (HCC); Infection Following A Procedure Other Surgical Site Initial Encounter; Hyperlipidemia; Depression; Insomnia; Stenosis Spinal Lumbar With Neurogenic Claudication; Fusion Lumbar Spine Status Post 10/18/2024 10:07 AM INSPECTOR SHELLS - 10/18/2024 11:59 PM INSPECTOR SHELLS Hospital Encounter Department of Laboratory Medicine in [place] [address] [place] [address] Ofe Blas APRN, C.N.P. Methicillin Susceptible Staphylococcus Aureus Infection As The Cause Of Diseases Classified Elsewhere Discharge Disposition: Home or Self Care 10/18/2024 10:05 AM INSPECTOR SHELLS - 10/18/2024 10:06 AM INSPECTOR SHELLS Hospital Encounter Department of Laboratory Medicine in [address] [address] Ofe Blas APRN, C.N.P. Methicillin Susceptible Staphylococcus Aureus Infection As The Cause Of Diseases Classified Elsewhere Discharge Disposition: Home or Self Care 10/17/2024 12:44 AM INSPECTOR SHELLS - 10/17/2024 11:59 PM INSPECTOR SHELLS Hospital Encounter Department of Laboratory Medicine in [address] [phone] Ofe Blas APRN, C.N.P. Infection Following A Procedure Other Surgical Site Subsequent Encounter; Infection Skin; Diabetes Mellitus Type 2 With Other Diabetic Neurologic Complication (HCC) Discharge Disposition: Home or Self Care 10/17/2024 Results Follow-Up [facility] in [place] [address] [place] [address] Ofe Blas APRN, C.N.P. Basic Metabolic Panel, CRP (C-Reactive Protein), CBC with Differential, Blood, Vancomycin, Trough 10/12/2024 9:00 AM INSPECTOR SHELLS External [facility]reach [facility] in [place] [address] [place] [phone] Ofe Blas APRN, C.N.P. Infection Following A Procedure Other Surgical Site Initial Encounter (Primary Dx); Diabetes Mellitus Type 2 With Other Diabetic Neurologic Complication (HCC) 10/09/2024 10:54 AM INSPECTOR SHELLS - 10/09/2024 11:59 PM INSPECTOR SHELLS Hospital Encounter Department of Laboratory Medicine in [place], [place] [address] [place] [address] Ofe Blas APRN, C.N.P. Infection Following A Procedure Other Surgical Site Subsequent Encounter; Acute Lymphadenitis Of Trunk Discharge Disposition: Home or Self Care 10/09/2024 Results Follow-Up [facility] in [address] [address] Ofe Blas APRN, C.N.P. CRP (C-Reactive Protein), Comprehensive Metabolic Panel, CBC with Differential, Blood, Vancomycin, Trough 10/05/2024 4:30 PM INSPECTOR SHELLS External [facility]reach [facility] in [address] [address] Ofe Blas APRN, C.N.P. Infection Following A Procedure Other Surgical Site Initial Encounter (Primary Dx); Primary Malignant Neoplasm Of Prostate (HCC); Fusion Lumbar Spine Status Post; Hyperlipidemia; Diabetes Mellitus Type 2 With Other Diabetic Neurologic Complication (HCC); Constipation; Depression; Edema; Insomnia 09/29/2024 Clinical Communication [facility] in [address] [address] Ofe Blas APRN, C.N.P. 09/28/2024 8:00 AM INSPECTOR SHELLS External Outreach [facility] in [address] [address] Yaneli Carmona D.O. Fusion Lumbar Spine Status Post (Primary Dx); Spondylolisthesis Lumbar Region; Infection Wound Postoperative Subsequent; Diabetes Mellitus Type 2 With Diabetic Neuropathy (HCC); Constipation; Peripheral Vascular Disease (HCC); Injury Brain Traumatic Personal History; Anxiety; Depression; Insomnia; Hyperlipidemia; Incontinence Urinary; Personal History Of Malignant Neoplasm Of Prostate; Edema 09/27/2024 Orders Only [facility] in [address] [address] Ofe Blas APRN C.N.P. 09/27/2024 Clinical Communication Senior Services in [place] [address] [place] [address] Ofe Blas APRN C.N.P. 09/26/2024 2:40 AM INSPECTOR SHELLS - 09/26/2024 11:59 PM INSPECTOR SHELLS Hospital Encounter Department of Laboratory Medicine in [place], [place] [address] [facility] [place] [address] Ofe Blas APRN, C.N.P. Hypertension Essential Primary; Infection Skin Discharge Disposition: Home or Self Care 09/26/2024 Clinical Communication [facility] in [place] [address] [place] [phone] Erika Blanchard APRN, C.N.P. 09/26/2024 Results Follow-Up [facility] in [place] [address] [place] [address] Ofe Blas APRN, C.N.P. Bacterial Culture, Aerobic + Susceptibility 09/26/2024 Results Follow-Up [facility] in [place] [address] [place] [address] Ofe Blas APRN, C.N.P. CRP (C-Reactive Protein), Basic Metabolic Panel, CBC with Differential, Blood 09/24/2024 10:26 AM INSPECTOR SHELLS - 09/24/2024 11:59 PM INSPECTOR SHELLS Hospital Encounter Department of Laboratory Medicine in [place], [place] [address] [facility] [place] [phone] Ofe Blas APRN, C.N.P. Infection Wound Postoperative Initial Discharge Disposition: Home or Self Care 09/23/2024 5:25 PM INSPECTOR SHELLS Telemedicine [facility] in [address] [place] [phone] Alexy Aguiar APRN, C.N.P. Spondylolisthesis Lumbar Region (Primary Dx); Fusion Lumbar Spine Status Post; Stenosis Spinal Lumbar With Neurogenic Claudication; Infection Following A Procedure Deep Incisional Surgical Site Initial Encounter Discharge Disposition: Home or Self Care 09/21/2024 2:30 PM INSPECTOR SHELLS External Outreach [facility] in [address] [address] Ofe Blas APRN, C.N.P. Stenosis Spinal Lumbar With Neurogenic Claudication (Primary Dx); Edema; Diabetes Mellitus Type 2 With Diabetic Neuropathy (HCC); Constipation 09/15/2024 Orders Only Senior [facility] in [address] [address] Ofe Blas APRN, C.N.P. 09/12/2024 12:17 AM INSPECTOR SHELLS - 09/12/2024 11:59 PM INSPECTOR SHELLS Hospital Encounter Department of Laboratory Medicine in [address] [address] Ofe Blas APRN, C.N.P. Diabetes Mellitus Type 2 (HCC) Discharge Disposition: Home or Self Care 09/11/2024 5:00 PM INSPECTOR SHELLS External Outreach [facility] in [address] [address] Ofe Blas APRN, C.N.P. Peripheral Vascular Disease (HCC) (Primary Dx); Obesity Unspecified; Diabetes Mellitus Type 2 With Diabetic Neuropathy (HCC); Diabetes Mellitus Type 2 With Other Diabetic Neurologic Complication (HCC); Charcots Joint Right Ankle And Foot; Stenosis Spinal Lumbar With Neurogenic Claudication; Injury Brain Traumatic Personal History; Anxiety; Depression; Incontinence Urinary; Hyperlipidemia; Insomnia; Primary Malignant Neoplasm Of Prostate (HCC) from Last 3 Months Immunizations Immunization Administration Dates Next Due H1N1 Inj 08/15/2009 Influenza high dose QV(65 ye ars or older) (PF) 06/10/2021,05/17/2020 Influenza, Quadrivalent, Adj uvanted, Preservative Free 05/20/2023,06/02/2022 Influenza, Seasonal, Injectable 08/13/2007 PCV13 04/13/2016 PPSV23 07/28/2000 RSV: respiratory syncytial v irus (AREXVY) recombinant vaccine 06/04/2023 RZV (SHINGRIX) 07/04/2019,04/10/2019 SARS-COV-2 (COVID-19) - PFIZ ER BIVALENT TS(Discontinued)(12 YEARS OR OLDER) 06/16/2022 SARS-COV-2 (COVID-19) - PFIZ ER TS(Discontinued)(12 years or older) 12/10/2021 Td (Adult), adsorbed 05/17/1996 Tdap 05/10/2014 influenza trivalent high dos e (HD)(PF) 05/11/2024,05/25/2019,06/06/2018,2016,05/10/2014 influenza trivalent vaccine (6 months and older)(PF) 06/13/2013 influenza vaccine quad (FLUZONE/FLUARIX) (6 months and older)(PF) 06/22/2016,08/15/2009 Social History Tobacco Use Types Packs/Day Years Used Date Smoking Tobacco: Former Smokeless Tobacco: Never Tobacco Cessation:Counseling Given: Not Answered Nutrition Answer Date Recorded Nutrition: EVOO Fat Source 13 05/14 Nutrition: Servings of Fruits/Vegetables per Day Not on file 05/14/2020 Dental Answer Date Recorded Dental: Regular Dentist Unknown 10/19/19 21 Sex and Gender Information Value Date Recorded Sex Assigned at Not on file Legal Sex Male 6:41 AM INSPECTOR [facility]LLS Gender Identity Not on file Sexual Orientation Not on file Last Filed Vital Signs Vital Sign Reading Time Taken Comments Blood Pressure 98/56 10/19/2024 8:19 AM INSPECTOR SHELLS Pulse 71 10/19/2024 8:19 AM INSPECTOR SHELLS Temperature 37 C (98.6 F) 10/19/2024 8:19 AM INSPECTOR SHELLS Respiratory Rate 18 10/19/2024 8:19 AM INSPECTOR SHELLS Oxygen Saturation 91% 10/19/2024 8:19 AM INSPECTOR SHELLS Inhaled Oxygen Concentration - - Weight 115 kg (253 lb 6.4 oz) 10/19/2024 8:19 AM INSPECTOR SHELLS Height 185.4 cm (6' 1) 09/11/2024 8:28 AM INSPECTOR SHELLS Body Mass Index 33.43 09/11/2024 8:28 AM INSPECTOR SHELLS Plan of Treatment Upcoming Encounters Date Type Department Care Team (Late st Contact Info) Description 12/04/2024 1:45 PM CDT Office Visit Department of Dermatology in [address] [phone] Mackenzie Flynn M.D. [address] [place] [address] Discharge Disposition: Home or Self Care Health Maintenance Due Date Last Done Comments Diabetic Office Visit with Foot Exam 1943 Dilated Eye Exam 1943 Urine Albumin 1943 Hepatitis B Vaccines (1 of 3 - Risk 3-dose series) 2003 Pneumococcal vaccine (50+ years) (3 of 3 - PCV20 or PCV21) 04/13/2021 04/13/2016, 07/28/2000 DTaP,Tdap,and Td Vaccines (2 - Td or Tdap) 05/10/2024 05/10/2014, 05/17/1996 Depression Screening (Annual PHQ-2) 08/30/2024 Fall Risk Screen (Annual) 08/30/2024 COVID-19 Vaccine ( season) 2024 05/23/2024, 06/15/2023, 06/16/2022, Additional history exists Hemoglobin A1C 12/27/2024 09/29/2024 Potassium Level 10/17/2025 10/17/2024, 021 , 09/30/2024, Additional history exists Sodium Level 10/17/2025 10/17/2024, 02/1 , 09/30/2024, Additional history exists Creatinine Level (Kidney Function Test) 10/18/2025 10/18/2024, 10/17/2024, 10/09/2024, Additional history exists Office Visit for Blood Pressure Check / Re-check 10/19/2025 10/19/2024 Zoster Vaccines Completed 07/04/2019, 04/10/2019 RSV vaccine - (32-36 weeks) or 60+ years Completed 06/04/2023 Influenza Vaccine Completed 05/11/2024, , 06/02/2022, Additional history exists IPV Vaccines Aged Out No longer eligi ble based on patient's age to complete this topic Procedures Procedure Name Priority Date/Time Associated Diagnosis Comments C-REACTIVE PROTEIN (CRP), S/P Routine 10/18/2024 10:08 AM INSPECTOR SHELLS Methicillin Susceptible Staphylococcus Aureus Infection As The Cause Of Diseases Classified Elsewhere BUN (BLOOD UREA NITROGEN), S/P Routine 10/18/2024 10:08 AM INSPECTOR SHELLS Methicillin Susceptible Staphylococcus Aureus Infection As The Cause Of Diseases Classified Elsewhere CREATININE WITH EGFR, S/P Routine 10/18/2024 9:30 AM INSPECTOR SHELLS Methicillin Susceptible Staphylococcus Aureus Infection As The Cause Of Diseases Classified Elsewhere VANCOMYCIN, TROUGH, S Routine 10/17/2024 6:54 AM INSPECTOR SHELLS Infection Following A Procedure Other Surgical Site Subsequent Encounter Infection Skin Diabetes Mellitus Type 2 With Other Diabetic Neurologic Complication (HCC) CBC WITH DIFFERENTIAL, B Routine 10/17/2024 6:54 AM INSPECTOR SHELLS Infection Following A Procedure Other Surgical Site Subsequent Encounter Infection Skin Diabetes Mellitus Type 2 With Other Diabetic Neurologic Complication (HCC) C-REACTIVE PROTEIN (CRP), S/P Routine 10/17/2024 6:54 AM INSPECTOR SHELLS Infection Following A Procedure Other Surgical Site Subsequent Encounter Infection Skin Diabetes Mellitus Type 2 With Other Diabetic Neurologic Complication (HCC) BASIC METABOLIC PANEL, S/P Routine 10/17/2024 6:54 AM INSPECTOR SHELLS Infection Following A Procedure Other Surgical Site Subsequent Encounter Infection Skin Diabetes Mellitus Type 2 With Other Diabetic Neurologic Complication (HCC) VANCOMYCIN, TROUGH, S Routine 10/09/2024 10:56 AM INSPECTOR SHELLS Infection Following A Procedure Other Surgical Site Subsequent Encounter CBC WITH DIFFERENTIAL, B Routine 10/09/2024 10:56 AM INSPECTOR SHELLS Infection Following A Procedure Other Surgical Site Subsequent Encounter Acute Lymphadenitis Of Trunk COMPREHENSIVE METABOLIC PANEL, S/P Routine 10/09/2024 10:56 AM INSPECTOR SHELLS Infection Following A Procedure Other Surgical Site Subsequent Encounter C-REACTIVE PROTEIN (CRP), S/P Routine 10/09/2024 10:56 AM INSPECTOR SHELLS Infection Following A Procedure Other Surgical Site Subsequent Encounter SEDIMENTATION RATE, B Routine 09/26/2024 7:30 AM INSPECTOR SHELLS Hypertension Essential Primary Infection Skin CBC WITH DIFFERENTIAL, B Routine 09/26/2024 7:30 AM INSPECTOR SHELLS Hypertension Essential Primary Infection Skin BASIC METABOLIC PANEL, S/P Routine 09/26/2024 7:30 AM INSPECTOR SHELLS Hypertension Essential Primary Infection Skin C-REACTIVE PROTEIN (CRP), S/P Routine 09/26/2024 7:30 AM INSPECTOR SHELLS Hypertension Essential Primary Infection Skin BACTERIAL CULTURE, AEROBIC + SUSC Routine 09/24/2024 9:30 AM INSPECTOR SHELLS Infection Wound Postoperative Initial CBC WITHOUT DIFFERENTIAL, B Routine 09/12/2024 7:25 AM INSPECTOR SHELLS Diabetes Mellitus Type 2 (HCC) BASIC METABOLIC PANEL, S/P Routine 09/12/2024 7:25 AM INSPECTOR SHELLS Diabetes Mellitus Type 2 (HCC) from Last 3 Months Results * (ABNORMAL) CRP (C-Reactive Protein) (10/18/2024 10:08 AM INSPECTOR SHELLS) Only the most recent of4 resultswithin the time period is included. C-Reactive Protein (CRP), P 7.1(H) <5.0 mg/L 10/18/2024 10:23 AM INSPECTOR SHELLS NPRG Blood (Blood, Venous) 10/18/2024 10:08 AM INSPECTOR SHELLS 10/18/2024 10:08 AM INSPECTOR SHELLS us Ofe Blas APRN, C.N.P. LAB BLOOD ADD-ON Fi nal Result [facility] [address] [address], [facility] NPRG [address] [address] * BUN (Blood Urea Nitrogen) (10/18/2024 10:08 AM INSPECTOR SHELLS) BUN (Blood Urea Nitrogen), P 16 8 - 24 mg/dL 10/18/2024 10:23 AM INSPECTOR SHELLS NPRG Blood (Blood, Venous) 10/18/2024 10:08 AM INSPECTOR SHELLS 10/18/2024 10:08 AM INSPECTOR SHELLS us Ofe Blas APRN, C.N.P. LAB BLOOD ADD-ON Fi nal Result [address] [address], [facility] NPRG [address] [address] * Creatinine with Estimated GFR (10/18/2024 9:30 AM INSPECTOR SHELLS) Creatinine 1.17 0.74 - 1.35 mg/dL 10/18/2024 10:24 AM INSPECTOR SHELLS NPRG Estimated GFR (eGFR) 63 >=60 mL/min/BSA 10/18/2024 10:24 AM INSPECTOR SHELLS NPRG Comment: Estimated GFR calculated using the 2020 CKD_EPI creatinine equation. Blood (Blood, Venous) 10/18/2024 9:30 AM INSPECTOR SHELLS 10/18/2024 10:10 AM INSPECTOR SHELLS us Ofe Blas APRN, C.N.P. LAB BLOOD ADD-ON Fi nal Result [address] [address], [facility] [address] [address] * (ABNORMAL) CBC with Differential, Blood (10/17/2024 6:54 AM INSPECTOR SHELLS) Only the most recent of3 resultswithin the time period is included. Hemoglobin 13.1(L) 13.2 - 16.6 g/dL 10/17/2024 7:42 AM INSPECTOR SHELLS NPRG Hematocrit 40.3 38.3 - 48.6 % 10/17/2024 7:42 AM INSPECTOR SHELLS NPRG Erythrocytes 4.22(L) 4.35 - 5.65 x10(12)/L 10/17/2024 7:42 AM INSPECTOR SHELLS NPRG MCV 95.5 78.2 - 97.9 fL 10/17/2024 7:42 AM INSPECTOR SHELLS NPRG RBC Distrib Width 13.4 11.8 - 14.5 % 10/17/2024 7:42 AM INSPECTOR SHELLS NPRG Platelet Count 241 135 - 317 x10(9)/L 10/17/2024 7:42 AM INSPECTOR SHELLS NPRG Leukocytes 8.1 3.4 - 9.6 x10(9)/L 10/17/2024 7:42 AM INSPECTOR SHELLS NPRG Neutrophils 4.34 1.56 - 6.45 x10(9)/L 10/17/2024 7:42 AM INSPECTOR SHELLS NPRG Lymphocytes 2.23 0.95 - 3.07 x10(9)/L 10/17/2024 7:42 AM INSPECTOR SHELLS NPRG Monocytes 0.86(H) 0.26 - 0.81 x10(9)/L 10/17/2024 7:42 AM INSPECTOR SHELLS NPRG Eosinophils 0.60(H) 0.03 - 0.48 x10(9)/L 10/17/2024 7:42 AM INSPECTOR SHELLS NPRG Basophils 0.08 0.01 - 0.08 x10(9)/L 10/17/2024 7:42 AM INSPECTOR SHELLS NPRG Blood (Blood, Venous) 10/17/2024 6:54 AM INSPECTOR SHELLS 10/17/2024 7:14 AM INSPECTOR SHELLS us Ofe Blas APRN, C.N.P. LAB BLOOD ADD-ON Fi nal Result [facility] [address] [place] [address], [facility] NPRG [facility] [address] [place] [address] * (ABNORMAL) Vancomycin, Trough (10/17/2024 6:54 AM INSPECTOR SHELLS) Only the most recent of2 resultswithin the time period is included. Vancomycin, Trough, S 6.4(L) 10.0 - 20.0 mcg/mL 10/17/2024 7:50 AM INSPECTOR SHELLS NPRG Blood (Blood, Venous) 10/17/2024 6:54 AM INSPECTOR SHELLS 10/17/2024 7:14 AM INSPECTOR SHELLS us Ofe Blas APRN, C.N.P. LAB BLOOD NON ADD-O N Final Result [facility] [address] [place] [address], [facility] NPRG [facility] [address] [place] [address] * (ABNORMAL) Basic Metabolic Panel (10/17/2024 6:54 AM INSPECTOR SHELLS) Only the most recent of3 resultswithin the time period is included. Potassium, P 4.3 3.6 - 5.2 mmol/L 10/17/2024 7:41 AM INSPECTOR SHELLS NPRG Sodium, P 141 135 - 145 mmol/L 10/17/2024 7:41 AM INSPECTOR SHELLS NPRG Chloride, P 104 98 - 107 mmol/L 10/17/2024 7:41 AM INSPECTOR SHELLS NPRG Bicarbonate, P 30(H) 22 - 29 mmol/L 10/17/2024 7:41 AM INSPECTOR SHELLS NPRG Anion Gap, P 7 7 - 15 10/17/2024 7:41 AM INSPECTOR SHELLS NPRG BUN (Blood Urea Nitrogen), P 16 8 - 24 mg/dL 10/17/2024 7:41 AM INSPECTOR SHELLS NPRG Creatinine 1.13 0.74 - 1.35 mg/dL 10/17/2024 7:41 AM INSPECTOR SHELLS NPRG Estimated GFR (eGFR) 65 >=60 mL/min/BSA 10/17/2024 7:41 AM INSPECTOR SHELLS NPRG Comment: Estimated GFR calculated using the 2020 CKD_EPI creatinine equation. Calcium, Total, P 9.3 8.8 - 10.2 mg/dL 10/17/2024 7:41 AM INSPECTOR SHELLS NPRG Glucose, P 144(H) 70 - 140 mg/dL 10/17/2024 7:41 AM INSPECTOR SHELLS NPRG Blood (Blood, Venous) 10/17/2024 6:54 AM INSPECTOR SHELLS 10/17/2024 7:14 AM INSPECTOR SHELLS us Ofe Blas APRN, C.N.P. LAB BLOOD ADD-ON Fi nal Result [facility] [address] [place] [address], [place] NPRG [facility] [address] [place] [address] * (ABNORMAL) Comprehensive Metabolic Panel (10/09/2024 10:56 AM INSPECTOR SHELLS) Potassium, P 3.9 3.6 - 5.2 mmol/L 10/09/2024 11:29 AM INSPECTOR SHELLS NPRG Sodium, P 138 135 - 145 mmol/L 10/09/2024 11:29 AM INSPECTOR SHELLS NPRG Chloride, P 103 98 - 107 mmol/L 10/09/2024 11:29 AM INSPECTOR SHELLS NPRG Bicarbonate, P 27 22 - 29 mmol/L 10/09/2024 11:29 AM INSPECTOR SHELLS NPRG Anion Gap, P 8 7 - 15 10/09/2024 11:29 AM INSPECTOR SHELLS NPRG BUN (Blood Urea Nitrogen), P 15 8 - 24 mg/dL 10/09/2024 11:29 AM INSPECTOR SHELLS NPRG Creatinine 0.92 0.74 - 1.35 mg/dL 10/09/2024 11:29 AM INSPECTOR SHELLS NPRG Estimated GFR (eGFR) 84 >=60 mL/min/BS A 10/09/2024 11:29 AM INSPECTOR SHELLS NPRG Comment: Estimated GFR calculated using the 2020 CKD_EPI creatinine equation. Calcium, Total, P 9.0 8.8 - 10.2 mg/dL 10/09/2024 11:29 AM INSPECTOR SHELLS NPRG Glucose, P 345(H) 70 - 140 mg/dL 10/09/2024 11:29 AM INSPECTOR SHELLS NPRG Protein, Total, P 6.3 6.3 - 7.9 g/dL 10/09/2024 11:29 AM INSPECTOR SHELLS NPRG Albumin, P 3.6 3.5 - 5.0 g/dL 10/09/2024 11:29 AM INSPECTOR SHELLS NPRG Aspartate Aminotransferase (AST), P 24 8 - 48 U/L 10/09/2024 11:29 AM INSPECTOR SHELLS NPRG Alkaline Phosphatase, P 109 40 - 129 U/L 10/09/2024 11:29 AM INSPECTOR SHELLS NPRG Alanine Aminotransferase (ALT), P 25 7 - 55 U/L 10/09/2024 11:29 AM INSPECTOR SHELLS NPRG Bilirubin, Total, P 0.3 0.0 - 1.2 mg/dL 10/09/2024 11:29 AM INSPECTOR SHELLS NPRG Blood (Blood, Venous) 10/09/2024 10:56 AM INSPECTOR SHELLS 10/09/2024 10:56 AM INSPECTOR SHELLS Ofe Blas APRN, C.N.P. LAB BLOOD ADD-ON Fi nal Result [facility] [address] [place] [address], [place] NPRG [place] [address] [address] [place] [address] * (ABNORMAL) Sedimentation Rate (09/26/2024 7:30 AM INSPECTOR SHELLS) [facility] Sedimentation Rate, B 51(H) 0 - 22 mm/1 h 09/26/2024 2:54 PM INSPECTOR SHELLS MKTO Blood (Blood, Venous) 09/26/2024 7:30 AM INSPECTOR SHELLS 09/26/2024 2:09 PM INSPECTOR SHELLS us Ofe Blas APRN, C.N.P. LAB BLOOD ADD-ON Fi nal Result [facility] [address] [place] [address], [place] MK[facility] [place] [address] [place] [address] * (ABNORMAL) Bacterial Culture, Aerobic + Susceptibility (09/24/2024 9:30 AM INSPECTOR SHELLS) Bacterial Culture, Aerobic + Susc STAPHYLOCOCCUS AUREUS 3+ (A) 09/26/2024 8:07 AM INSPECTOR SHELLS MKTO Comment: Methicillin Resistant Staphylococcus aureus (MRSA). Semi-Urgent Result. Semi-Urgent This is a semi-urgent result(JAIMES) [facility] Swab (Back) 09/24/2024 9:30 AM INSPECTOR SHELLS 09/24/2024 4:44 PM INSPECTOR SHELLS Comment:Specimen Source Site : Swab Narrative Organism [...] Sulfamethoxazole SUSCEPTIBILITY, BENITO (MCG/ML) <=10 mcg/mL: Susceptible us Ofe Blas APRN, C.N.P. LAB MICROBIOLOGY - GENERAL ORDERABLES Final Result [facility] [address] [place] [address], [place] [facility] [place] [address] [place] [address] * (ABNORMAL) CBC without Differential (09/12/2024 7:25 AM INSPECTOR SHELLS) Hemoglobin 13.1(L) 13.2 - 16.6 g/dL 09/12/2024 8:31 AM INSPECTOR SHELLS NPRG Hematocrit 38.5 38.3 - 48.6 % 09/12/2024 8:31 AM INSPECTOR SHELLS NPRG Erythrocytes 4.12(L) 4.35 - 5.65 x10(12)/L 09/12/2024 8:31 AM INSPECTOR SHELLS NPRG MCV 93.4 78.2 - 97.9 fL 09/12/2024 8:31 AM INSPECTOR SHELLS NPRG RBC Distrib Width 12.5 11.8 - 14.5 % 09/12/2024 8:31 AM INSPECTOR SHELLS NPRG Platelet Count 222 135 - 317 x10(9)/L 09/12/2024 8:31 AM INSPECTOR SHELLS NPRG Leukocytes 8.8 3.4 - 9.6 x10(9)/L 09/12/2024 8:31 AM INSPECTOR SHELLS NPRG Blood (Blood, Venous) 09/12/2024 7:25 AM INSPECTOR SHELLS 09/12/2024 7:45 AM INSPECTOR SHELLS us Ofe Blas APRN, C.N.P. LAB BLOOD ADD-ON Fi nal Result [facility] [address] [place] [address], [facility] NPRG [facility] [address] [place] [address] from Last 3 Months Insurance MEDICARE [facility] [place] [address] Advance Directives For more information, please contact: [phone] Documents on File Type Date Recorded Patient Social Media Content Manager Expl anation Advance Directives 10/05/2024 2:21 PM POLST /MOLST Advance Directives 09/11/2024 11:[address]/MOLST Care Teams Desk Clerk Relationship Specialty Start Date End Date None Reported, Pcp PCP - General Family Medicine 10/20/24
--- OUTSIDE RECORDS SUMMARY | 2024-11-08 19:00 | XMS_ITS | Encounter Summary ---
Author Organization [facility] Address [address] [place] [address] Care Team Providers Care Binder Lockstitch Name Role Phone Ofe Blas APRN, C.N.P. Primary Care [facility] Encounter Details Date Type Department Care Team (Late st Contact Info) Description 09/29/2024 Clinical Communication Senior Services in [place] [address] [place] [phone] Ofe Blas APRN, C.N.P. [address] [place] [phone] Social History Tobacco Use Types Packs/Day Years Used Date Smoking Tobacco: Former Smokeless Tobacco: Never Nutrition Answer Date Recorded Nutrition: EVOO Fat Source 13 05/14 Nutrition: Servings of Fruits/Vegetables per Day Not on file 05/14/2020 Dental Answer Date Recorded Dental: Regular Dentist Unknown 10/19/19 21 Sex and Gender Information Value Date Recorded Sex Assigned at Not on file Legal Sex Male 6:41 AM CIVIL ENGINEERING PROFESSOR Gender Identity Not on file Sexual Orientation Not on file documented as of this encounter Miscellaneous Notes * Telephone Encounter - Ofe Blas APRN, C.N.P. - 09/29/2024 4:43 PM CIVIL ENGINEERING PROFESSOR Received update today for Violet Radhaenoch that patient's back incision is looking worse, there is increased redness and Now pus from his back incision. He was started on Bactrim and has received 5 doses of Bactrim for MRSA that grew from a wound culture. Nursing does report they did update patient's surgeon when wound culture came back. They did not have any new orders. Did consult with Dr. Carmona who saw patient yesterday, she feels this incision is looks worse. Due to worsening wound appearance with some dehiscence and pus have recommended patient go to the emergency room for further imaging and possible initiation of IV antibiotics. L ENGINEERING PROFESSOR documented in this encounter Plan of Treatment Upcoming Encounters Date Type Department Care Team (Late st Contact Info) Description 12/04/2024 1:45 PM CDT Office Visit Department of Dermatology in [address] [phone] Mackenzie Flynn M.D. [address] [place] [phone] Discharge Disposition: Home or Self Care documented as of this encounter Visit Diagnoses Not on filedocumented in this encounter Care Teams Binder Lockstitch Relationship Specialty Start Date End Date Ofe Blas APRN, C.N.P. [address] [place] [phone] PCP - General Family Medicine 09/09/24 09/30/24 documented as of this encounter
--- OUTSIDE RECORDS SUMMARY | 2024-11-08 19:00 | XMS_ITS | Encounter Summary ---
Author Organization [facility] Address [address] [place] [address] Care Team Providers Care Manager Research And Development Name Role Phone Ofe Blas APRN C.N.P. Primary Care [facility] Encounter Details Date Type Department Care Team (Late st Contact Info) Description 09/26/2024 Results Follow-Up Senior Services in [place] [address] [place] [phone] Ofe Blas APRN, C.N.P. [address] [place] [phone] CRP (C-Reactive Protein), Basic Metabolic Panel, CBC with Differential, Blood Social History Tobacco Use Types Packs/Day Years Used Date Smoking Tobacco: Former Smokeless Tobacco: Never Nutrition Answer Date Recorded Nutrition: EVOO Fat Source 13 05/14 Nutrition: Servings of Fruits/Vegetables per Day Not on file 05/14/2020 Dental Answer Date Recorded Dental: Regular Dentist Unknown 10/19/19 21 Sex and Gender Information Value Date Recorded Sex Assigned at Not on file Legal Sex Male 6:41 AM INSIGHTS ANALYST Gender Identity Not on file Sexual Orientation Not on file documented as of this encounter Plan of Treatment Upcoming Encounters Date Type Department Care Team (Late st Contact Info) Description 12/04/2024 1:45 PM CDT Office Visit Department of Dermatology in [address] [phone] Mackenzie Flynn M.D. [address] [place] [phone] Discharge Disposition: Home or Self Care documented as of this encounter Visit Diagnoses Not on filedocumented in this encounter Additional Health Concerns Infection Onset Date Last Indicated Resolved Time MRSA 09/24/2024 09/24/2024 09/27/2024 6:29 AM INSIGHTS ANALYST documented as of this encounter Care Teams Manager Research And Development Relationship Specialty Start Date End Date Ofe Blas APRN, C.N.P. [address] [place] [phone] PCP - General Family Medicine 09/09/24 09/30/24 documented as of this encounter
--- OUTSIDE RECORDS SUMMARY | 2024-11-08 19:00 | XMS_ITS | Encounter Summary ---
Author Organization [facility] Address [address] [place] [address] Care Team Providers Care Resources Representative Name Role Phone Ofe Blas APRN, C.N.P. Primary Care [facility] Encounter Details Date Type Department Care Team (Latest Contact Info) Description 09/23/2024 5:25 PM A&P TECHNICIAN Telemedicine Senior Services in [address] [place] [phone] Alexy Aguiar APRN, C.N.P. [address] [place] [address] [place] [id number] Spondylolisthesis Lumbar Region (Primary Dx); Fusion Lumbar Spine Status Post; Stenosis Spinal Lumbar With Neurogenic Claudication; Infection Following A Procedure Deep Incisional Surgical Site Initial Encounter Discharge Disposition: Home or Self Care Social [...] on file Legal Sex Male 6:41 AM A&P TECHNICIAN Gender Identity Not on file Sexual Orientation Not on file documented as of this encounter Last Filed Vital Signs Vital Sign Reading Time Taken Comments Blood Pressure 162/81 09/23/2024 5:57 PM A&P TECHNICIAN Pulse 67 09/23/2024 5:57 PM A&P TECHNICIAN Temperature 36.6 C (97.8 F) 09/23/2024 5:57 PM A&P TECHNICIAN Respiratory Rate 18 09/23/2024 5:57 PM A&P TECHNICIAN Oxygen Saturation 96% 09/23/2024 5:57 PM A&P TECHNICIAN RA Inhaled Oxygen Concentration - - Weight - - Height - - Body Mass Index - - documented in this encounter Progress Notes * Alexy Aguiar APRN, C.N.P. - 09/23/2024 5:25 PM CST CHIEF COMPLAINT / REASON FOR VISIT The resident is being seen at [place], [place] for an Acute visit Visit Type: Video Visit: Consult conducted vial real-time audio/video technology by Alexy Aguiar APRN, C.N.P. in [facility] to the patient at [place], [place] SUBJECTIVE HISTORY OF PRESENT ILLNESS Matheus Ballard is a 79 y.o. male with a medical history significant for anxiety, depression, diabetic ulcer of the foot, diabetic retinopathy, type 2 diabetes mellitus, MRSA, prostate cancer, peripheral vascular disease, history of stroke, history of traumatic brain injury, smoker, lumbar spondylolisthesis, lumbar spinal stenosis status post spinal fusion of L4 and L5. I am seeing Mr. Ballard today via video visit due to nurse concern regarding increased redness and warmth to his surgical site. Obtained from Patient and Nursing: Nurse reports increased warmth and erythema compared to the last couple of days. Matheus has been afebrile. He tells me the area was draining for a few days and has stopped. He denies any increased pain. No noted chills or night sweates. I personally reviewed the most recent following items: clinical notes, lab results, imaging reports, other test results or reports Most recent labs reviewed: Lab Results Component Value Date WBC 8.8 09/12/2024 HGB 13.1 (L) 09/12/2024 HGB 13.3 (L) 09/08/2024 HCT 38.5 09/12/2024 PLT 222 09/12/2024 Lab Results Component Value Date NA 136 09/12/2024 KSERUM 4.1 09/08/2024 KPLASMA 3.9 09/12/2024 CL 98 09/12/2024 BUN 20 09/12/2024 CREATININE 1.13 09/12/2024 GLUCOSE 254 (H) 09/12/2024 The following medical problems were actively reviewed (including updating overview sections as necessary) and addressed as part of today's visit: Diagnosis Overview 1. Stenosis Spinal Lumbar With Neurogenic Claudication 2. Fusion Lumbar Spine Status Post CODE STATUS: FULL CODE REVIEW OF SYSTEMS Complete review of systems was performed, as allowable by patient's cognitive status, and incorporating collateral history if applicable. Relevant positives are noted elsewhere in this note, otherwise negative. OBJECTIVE Vital signs provided by facility: BP (!) 162/81 Pulse 67 Temp 36.6 ??C Resp 18 SpO2 96% Comment: RA PHYSICAL EXAM Constitutional General: He is not in acute distress. HENT Head: Normocephalic and atraumatic. Skin General: Skin is warm and dry. Comments: Lumbar surgical site with erythema and swelling to the upper 14th of the site. Noted tenderness to palpation. Neurological Mental Status: He is alert and oriented to person, place, and time. Psychiatric Mood and Affect: Mood normal. Behavior: Behavior normal. ASSESSMENT / PLAN Full background details regarding problems addressed at today's visit can be found in the HPI. Pertinent changes to the care plan based on today's evaluation are explicitly discussed below, otherwiselisted problems are stable and present management will be continued. #1 Spondylolisthesis Lumbar Region #2 Fusion Lumbar Spine Status Post #3 Stenosis Spinal Lumbar With Neurogenic Claudication To continue oxycodone 2.5 mg every 8 hours as needed for pain rated 3106/10 and 5 mg rated for pain7-10/10. To continue acetaminophen 1000 mg every 8 hours To continue methocarbamol 500 mg tablets 250 mg every 6 hours as needed for muscle spasms #4 Infection Following A Procedure Deep Incisional Surgical Site Initial Encounter Cephalexin 500 mg 3 times a day for 10 days To follow up with PCP next week. If any drainage noted I have asked that they get a wound culture New orders Cephalexin 500 mg 3 times a day for 10 days To follow up with PCP next week. If any drainage noted please get a wound culture Medication list in Epic chart updated to reflect SNF medication list as appropriate. PATIENT EDUCATION Ready to learn, no apparent learning barriers were identified; learning preferences include listening. Explained diagnosis and treatment plan; patient/child/caregiver expressed understanding of the content. Billing based on: Medical decision-making. See clinical note for justification. Any additional supporting information is noted below. A&P TECHNICIAN documented in this encounter Plan of Treatment Upcoming Encounters Date Type Department Care Team (Late st Contact Info) Description 12/04/2024 1:45 PM CDT Office Visit Department of Dermatology in [address] [phone] Mackenzie Flynn M.D. [address] [place] [phone] Discharge Disposition: Home or Self Care documented as of this encounter Visit Diagnoses Diagnosis Spondylolisthesis Lumbar Region- Primary Fusion Lumbar Spine Status Post Stenosis Spinal Lumbar With Neurogenic Claudication Infection Following A Procedure Deep Incisional Surgical Site Initial Encounter documented in this encounter Care Teams Resources Representative Relationship Specialty Start Date End Date Ofe Blas APRN, C.N.P. [address] [place] [phone] PCP - General Family Medicine 09/09/24 09/30/24 documented as of this encounter
--- OUTSIDE RECORDS SUMMARY | 2024-11-08 19:00 | XMS_ITS | Encounter Summary ---
Author Organization [facility] Address [address] [place] [address] Care Team Providers Care Salvage Determiner Name Role Phone Ofe Blas APRN C.N.P. Primary Care Provi [facility] Encounter Details Date Type Department Care Team (Late st Contact Info) Description 10/09/2024 Results Follow-Up Senior Services in [place] [address] [place] [phone] Ofe Blas APRN, C.N.P. [address] [place] [phone] CRP (C-Reactive Protein), Comprehensive Metabolic Panel, CBC with Differential, Blood, Vancomycin, Trough Social [...] on file Legal Sex Male 6:41 AM NETWORK CONTROL SUPERVISOR Gender Identity Not on file Sexual Orientation Not on file documented as of this encounter Plan of Treatment Upcoming Encounters Date Type Department Care Team (Late st Contact Info) Description 12/04/2024 1:45 PM CDT Office Visit Department of Dermatology in [address] [phone] Mackenzie Flynn M.D. [address] [place] [phone] Discharge Disposition: Home or Self Care documented as of this encounter Visit Diagnoses Not on filedocumented in this encounter Care Teams Salvage Determiner Relationship Specialty Start Date End Date Ofe Blas APRN, C.N.P. [address] [place] [phone] PCP - General Family Medicine 10/04/24 10/19/24 documented as of this encounter
--- OUTSIDE RECORDS SUMMARY | 2024-11-08 19:00 | XMS_ITS | Encounter Summary ---
Author Organization [facility] Address [address] [place] [address] Care Team Providers Care Outreach Analyst Name Role Phone Ofe Blas APRN C.N.P. Primary Care [facility] Encounter Details Date Type Department Care Team (Late st Contact Info) Description 09/26/2024 Results Follow-Up Senior Services in [place] [address] [place] [phone] Ofe Blas APRN, C.N.P. [address] [place] [phone] Bacterial Culture, Aerobic + Susceptibility Social History Tobacco Use Types Packs/Day Years Used Date Smoking Tobacco: Former Smokeless Tobacco: Never Nutrition Answer Date Recorded Nutrition: EVOO Fat Source 13 05/14 Nutrition: Servings of Fruits/Vegetables per Day Not on file 05/14/2020 Dental Answer Date Recorded Dental: Regular Dentist Unknown 10/19/19 21 Sex and Gender Information Value Date Recorded Sex Assigned at Not on file Legal Sex Male 6:41 AM PROGRAM MANAGER ENVIRONMENTAL PLANNING Gender Identity Not on file Sexual Orientation Not on file documented as of this encounter Plan of Treatment Upcoming Encounters Date Type Department Care Team (Late st Contact Info) Description 12/04/2024 1:45 PM CDT Office Visit Department of Dermatology in [address] [phone] Mackenzie Flynn M.D. [address] [place] [phone] Discharge Disposition: Home or Self Care documented as of this encounter Visit Diagnoses Diagnosis Cellulitis Back- Primary documented in this encounter Additional Health Concerns Infection Onset Date Last Indicated Resolved Time MRSA 09/24/2024 09/24/2024 09/27/2024 6:29 AM PROGRAM MANAGER ENVIRONMENTAL PLANNING documented as of this encounter Care Teams Outreach Analyst Relationship Specialty Start Date End Date Ofe Blas APRN, C.N.P. [address] [place] [phone] PCP - General Family Medicine 09/09/24 09/30/24 documented as of this encounter
[2024-11-08 19:40] LABS: PCR FLU A Negative PCR FLU A (Negative); PCR FLU B Negative PCR FLU B (Negative); PCR RSV Negative PCR RSV (Negative); SARS PCR* Negative SARS-CoV-2 (Negative)
[2024-11-08 19:55] LABS: Appearance Urine Clear (Clear); Bilirubin Urine Negative (Negative); Blood Urine Negative (Negative); Color Urine Yellow (Yellow); Glucose Urine 1+ (Negative); Ketones Urine Negative (Negative); Leukocyte Esterase Urine Negative (Negative); Nitrite Urine Negative (Negative); Protein Urine Trace (Negative); Urobilinogen Urine 0.2 (0.2-1.0); pH Urine 6.5 (5.0-8.5)
[2024-11-08 20:06] LABS: Lactate* 1.8 mmol/L (0.5-1.9)
[2024-11-08 20:07] LABS: Basophils Absolute Auto 0.05 K/uL (0.00-0.30); Basophils Percent Auto 0.7 % (0.0-3.0); Eosinophils Absolute Auto 0.34 K/uL (0.00-0.50); Eosinophils Percent Auto 4.9 % (0.0-7.0); Hematocrit 38.8 % (37.0-53.0); Hemoglobin* 12.4 gm/dL (13.5-17.5); Immature Granulocytes Abs Auto 0.02 K/uL (0.00-0.30); Immature Granulocytes Pct Auto 0.3 %; Lymphocytes Absolute Auto 2.12 K/uL (0.90-2.90); Lymphocytes Percent Auto 30.9 % (20-44); Mean Corpuscular HGB Conc 32 gm/dL (32-36); Mean Corpuscular Hemoglobin 31 pg (26-34); Mean Corpuscular Volume 96 fL (80-100); Neutrophils Absolute Auto 3.65 K/uL (1.7-7.0); Neutrophils Percent Auto 53.2 % (42.0-72.0); Platelet Count* 170 K/uL (140-440); RDW Coefficient of Variation % 13.5 % (11.5-15.5); Red Blood Count 4.04 m/uL (4.30-5.90); White Blood Count* 6.87 K/uL (4.50-11.00)
[2024-11-08 20:10] LABS: Slide Review Reflex No
[2024-11-08 20:10] LABS: RBC Urine 0-2 (0-2); Squamous Epithelial Cell Urine Few (None-Few); WBC Urine 0-2 (0-5)
[2024-11-08 20:23] LABS: Albumin* 3.5 g/dL (3.3-5.0); Chloride* 99 mmol/L (96-114)
[2024-11-08 20:24] LABS: Potassium* 4.7 mmol/L (3.6-5.1); Sodium* 131 mmol/L (135-149)
[2024-11-08 20:26] LABS: Blood Urea Nitrogen* 21 mg/dL (7-30); Creatinine* 1.1 mg/dL (0.5-1.5); Est. Creatinine Clearance* 59.52; Estimated Glomerular Filt Rate 67 ml/min
[2024-11-08 20:27] LABS: Alanine Aminotransferase* 33 U/L (4-50); Alkaline Phosphatase* 82 U/L (40-150); Anion Gap 7 mEq/L (7-15); Aspartate Amino Transferase* 34 U/L (12-35); Bilirubin Total* 0.4 mg/dL (0.1-1.5); Calcium* 8.5 mg/dL (8.4-10.6); Carbon Dioxide* 25 mmol/L (20-32); Glucose* 277 mg/dL (60-115); Total Protein* 6.1 g/dL (6.0-8.3)
[2024-11-08 20:40] LABS: C Reactive Protein* < 0.5 mg/dL (0.5-1.0); Troponin I* < 0.01 ng/mL (0.01-0.04)
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
[2024-11-09 00:08] VITALS: PULSE 57
[2024-11-09 03:00] VITALS: BP 155/90; PULSE 66; RESP 18; TEMP 36.6; O2SAT 98
[2024-11-09 06:47] LABS: Hematocrit 41.2 % (37.0-53.0); Hemoglobin* 13.5 gm/dL (13.5-17.5); Mean Corpuscular HGB Conc 33 gm/dL (32-36); Mean Corpuscular Hemoglobin 31 pg (26-34); Mean Corpuscular Volume 95 fL (80-100); Platelet Count* 184 K/uL (140-440); Red Blood Count 4.36 m/uL (4.30-5.90); White Blood Count* 6.44 K/uL (4.50-11.00)
[2024-11-09 06:59] LABS: Slide Review Reflex No
[2024-11-09 07:00] VITALS: PULSE 68
[2024-11-09 07:00] LABS: Chloride* 100 mmol/L (96-114); Potassium* 3.8 mmol/L (3.6-5.1); Sodium* 136 mmol/L (135-149)
[2024-11-09 07:02] LABS: Blood Urea Nitrogen* 17 mg/dL (7-30); Cholesterol* 105 mg/dL (90-199)
[2024-11-09 07:03] LABS: Anion Gap 6 mEq/L (7-15); Calcium* 8.7 mg/dL (8.4-10.6); Carbon Dioxide* 30 mmol/L (20-32); Est. Creatinine Clearance* 65.47; Estimated Glomerular Filt Rate 76 ml/min; Glucose* 155 mg/dL (60-115); HDL Cholesterol* 41 mg/dL (>=40); LDL Cholesterol Calculated 50 mg/dL (<100); Triglycerides* 72 mg/dL (40-149)
--- NOTE | 2024-11-09 07:08 | PC.NURSE ---
End of shift summary: Pt has been A&O, afebrile and VSS overnight. He ambulates with SBA and 2ww with a steady gait. Neuro checks q4 have been unremarkable, CMS intact, PERRLA. Pt is cooperative with cares and very talkative. He is baseline incontinent/continent of urine. Pt self transferred to the bathroom once and left FA IV was pulled out, catheter intact. New IV placed in left FA without difficulty. Bed alarm necessary as he does not always use the call light for transfers. TELE read SB overnight. Plan for an MRI today to R/O CVA as head CT was negative. 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 No c/o pain, nausea or dizziness overnight.
[2024-11-09 07:27] LABS: Hemoglobin A1C* 7.2 % (0-5.6)
[2024-11-09] MEDS: INSULIN ASPART 100 UNIT/ML SUBCUT ×2 (08:04→12:23)
[2024-11-09 08:12] VITALS: BP 143/68; PULSE 60; RESP 14; TEMP 36.6; O2SAT 93
--- NOTE | 2024-11-09 08:36 | CRLHL7_ITS ---
For Patients: As a result of the Century Cures Act, medical imaging exams and procedure reports are released immediately into your electronic medical record. You may view this report before your referring provider. If you have questions, please contact your health care provider. Indication: Episode of AMS, hx cvd Technique: Noncontrast sagittal T1 weighted, axial FLAIR, axial T2 weighted, and axial diffusion weighted sequences are provided. Comparison: CT 11/08/2024 Findings: Moderate generalized parenchymal volume loss. Chronic lacunar infarcts in the left cerebellum. No mass effect or midline shift. Chronic ischemic infarcts in the bilateral thalami. There is a focus of susceptible artifact associated with the left thalamic infarct compatible with hemosiderin deposition. Blooming susceptibility artifact in the right parietal lobe compatible with remote microhemorrhage. Prominent perivascular spaces. Multiple scattered foci of patchy and confluent T2 prolongation in the supratentorial white matter likely represents chronic small vessel ischemic changes. Chronic lacunar infarcts in the right parietal lobe centrum semiovale. No suspicious extra-axial collection or acute intracranial hemorrhage. Expected intracranial vascular flow voids are preserved. There is an 8 millimeter focus of diffusion restriction and T2 prolongation in the right superior occipital cortex compatible with acute ischemic infarct. Impression : 1. Small acute ischemic infarct in the right occipital cortex. 2. Chronic ischemic infarcts in the bilateral thalamus and right parietal lobe centrum semiovale. 3. Moderate parenchymal volume loss and chronic small vessel ischemic changes. Dictated by Dyllan Kwon MD @ 11/09/2024 1:09:33 PM (Electronically Signed)
[2024-11-09] MEDS: ASPIRIN 81 MG TAB.CHEW PO (09:24)
[2024-11-09] MEDS: INSULIN GLARGINE,HUM.REC.ANLOG 100 UNIT/ML INSULN.PEN 20 UNIT SUBCUT (09:25)
[2024-11-09] MEDS: oxyBUTYnin chloride 5 MG TAB.ER.24 10 MG PO (09:25)
[2024-11-09] MEDS: DULOXETINE 30 MG CAPSULE DR 60 MG PO (09:25)
[2024-11-09] MEDS: SODIUM CHLORIDE 0.9 % (FLUSH) 10 ML SYRINGE 5 ML IVF (09:26)
[2024-11-09 11:42] VITALS: BP 177/90; PULSE 72; RESP 16; TEMP 36.6; O2SAT 97
[2024-11-09 12:26] VITALS: PULSE 72
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
--- NOTE | 2024-11-09 17:00 | PC.NURSE ---
Discharge: Patient pleasant and cooperative. Patient hypertensive but vitally stable, lungs clear, BS WNL, IV removed, catheter intact. Patient denies pain. Patient 1 assist/walker with ambulating. Neuros intact. Patient tolerating regular diet, urinating well, and had 1 BM. Blood sugars 158 and 268. Zio patch applied to left chest and activated at 1618, discharge and Zio patch given to patient and spouse. All questions that patient and spouse had were all answered. Patient left the floor by wheelchair to home at 1624.
== END 2024-11-09 16:24 | disposition home or self-care (01) ==
LOC: ED 21:36 → MEDSURG 21:54
PROVIDERS: Physician Assistant; Admitting Provider Family Medicine; Emergency Provider Family Medicine; PCP Family Medicine; Visit Provider Family Medicine
DX: R41.82 Altered mental status, unspecified (principal); Z86.73 Personal history of transient ischemic attack (TIA), and cerebral infarction without residual deficits; R51.9 Headache, unspecified; E11.9 Type 2 diabetes mellitus without complications; Z79.4 Long term (current) use of insulin; E78.2 Mixed hyperlipidemia; Z79.899 Other long term (current) drug therapy; M54.16 Radiculopathy, lumbar region; Z79.82 Long term (current) use of aspirin; R32 Unspecified urinary incontinence; Z87.891 Personal history of nicotine dependence
CPT/HCPCS: 36415; 70450; 70496; 70498; 70551; 71045; 80048; 80053; 80061; 81001; 82962; 83036; 83605; 84484; 85025; 85027; 86140; 87631; 93005; 93246; 93306; 94761; 97161; 97165; 99285; A9270; G0378; J1815; Q9967

== ENCOUNTER 2025-01-16 13:54 | Outpatient (CLI) | payer MEDICARE, BC, SELFPAY | END 2025-01-16 13:55 | disposition home or self-care (01) | LOC: FBOREF 13:55 | PROVIDERS: PCP Family Medicine; Visit Provider Family Medicine | DX: C61 Malignant neoplasm of prostate (principal) | CPT/HCPCS: 84153 ==

== ENCOUNTER 2025-02-28 12:40 | Outpatient (CLI) | payer MEDICARE, BC, SELFPAY ==
[2025-02-27 13:34] LABS: PSA Diagnostic* 0.10 ng/mL (0.10-4.00)
== END 2025-02-28 12:41 | disposition home or self-care (01) ==
LOC: NPINS 12:51
PROVIDERS: PCP Family Medicine; Visit Provider Physician Assistant
DX: C61 Malignant neoplasm of prostate (principal)
CPT/HCPCS: 84153

== ENCOUNTER 2025-04-16 12:01 | Outpatient (CLI) | payer MEDICARE, BC, SELFPAY | END 2025-04-16 12:02 | disposition home or self-care (01) | LOC: FBOREF 12:01 | PROVIDERS: PCP Family Medicine; Visit Provider Family Medicine | DX: I10 Essential (primary) hypertension (principal) | CPT/HCPCS: 80048 ==

== ENCOUNTER 2025-07-18 08:06 | Outpatient (CLI) | payer MEDICARE, BC, SELFPAY | END 2025-07-18 08:07 | disposition home or self-care (01) | LOC: WOUND 08:07 | PROVIDERS: PCP Family Medicine; Visit Provider Nurse Practitioner Family | DX: E11.621 Type 2 diabetes mellitus with foot ulcer (principal); E11.40 Type 2 diabetes mellitus with diabetic neuropathy, unspecified; M14.671 Charcot's joint, right ankle and foot; L97.511 Non-pressure chronic ulcer of other part of right foot limited to breakdown of skin; I73.9 Peripheral vascular disease, unspecified; L97.821 Non-pressure chronic ulcer of other part of left lower leg limited to breakdown of skin; Z79.4 Long term (current) use of insulin | CPT/HCPCS: G0463 ==

== ENCOUNTER 2025-07-19 08:54 | Outpatient (CLI) | payer MEDICARE, BC, SELFPAY | END 2025-07-19 08:55 | disposition home or self-care (01) | LOC: AMB 07-23 17:06 | PROVIDERS: PCP Family Medicine; Visit Provider Emergency Medicine | DX: R42 Dizziness and giddiness (principal); R53.1 Weakness | CPT/HCPCS: A0425; A0427 ==

== ENCOUNTER 2025-07-19 09:44 | Inpatient (IN) | payer MEDICARE, BC, SELFPAY ==
[2025-07-19] VITALS (66 sets, daily range): BP systolic 70–130; BP diastolic 37–89; PULSE 63–136; RESP 9–40; TEMP 36.1–36.5; O2SAT 90–97; BMI 37.6; BMI 38.2
--- NOTE | 2025-07-19 10:01 | CRLHL7_ITS ---
For Patients: As a result of the Century Cures Act, medical imaging exams and procedure reports are released immediately into your electronic medical record. You may view this report before your referring provider. If you have questions, please contact your health care provider. 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 Lungs clear. Stable mediastinum. IMPRESSION: No acute findings. Dictated by Dyllan Frazier MD @ 07/19/2025 10:45:20 AM (Electronically Signed)
--- NOTE | 2025-07-19 10:03 | ED.GENADULT ---
HPI - General Adult General Date Seen: 07/19/25 Chief complaint: Dizziness/Vertigo Stated complaint: weakness Time Seen by Provider: 07/19/25 09:45 History of Present Illness HPI narrative: 81-year-old gentleman brought to the ER today by EMS from his home. Report from EMS: They were called this morning because he had gotten up this morning and was a little bit weak. He was able to walk to get to the toilet in his bathroom but then was too weak to get off. His called 911. He did not have any focal deficits. Blood sugar was normal. He does seem very pale and weak initial blood pressure was 80 systolic. They were able to establish an IV and give him the beginnings of a 500 mL fluid bolus. He required assist from multiple people to get him physically off the toilet and on to the EMS gurney. In route he was noted to have a tachycardia with heart rate in the 1 teens. Possibly AFib. No definite STEMI on his 12 lead. Patient had no complaints. Blood pressure had come up to about 130 systolic EN route. EMS says he was confused when on the toilet but since his blood pressure has come up his mental status is normalized and the report he has a pretty good historian. History from patient: He does recall that he has type 2 diabetes. He has peripheral edema that he thinks his lymphedema but his doctor say is water. He is on torsemide for that and they increased his dose of torsemide yesterday. He does wear compression stockings. 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 He also has some ulcers on his shins but he says those off all of in looking fine. No recent acute redness. No other recent illness. No fever. No cough. No trouble breathing. No chest pain. No palpitations. No abdominal pain. No nausea. No vomiting. No diarrhea. No black or bloody stools. Urination has been normal. He is weak this morning he thinks it is because he is ?dried out. ? He says he had a TIA a few months ago and apparently had an MRI that showed a clot in his brain. He is not on any blood thinners. Per medical record he has a history of type 2 diabetes with diabetic neuropathy, diabetic retinopathy. 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 He had a history of a stroke a few months ago. He has a history of prostate cancer, chronic pain, anxiety, tobacco use, TBI, type 2 diabetes, hypertension. He was hospitalized in October 2024 with acute altered mental status, falling sleep table, slurred speech, and incoordination. MRI showed a small acute ischemic infarct in the right occipital cortex and chronic infarcts in the bilateral fall on my and right parietal lobe centrum semiovale. Anam showed EF of 55-60%. Normal LV size and wall thickness. Inferior hypokinesis. He was discharged on aspirin 325 mg daily. Goal to keep his blood pressure under control. Follow-up stroke clinic. He had a checkup with his primary care provider, Dr. Wagner 2 days ago on the to follow-up for his blood pressure and diabetes. Blood pressure was 138/78. Pulse 78. Per that note he had been on torsemide 40 mg in the morning, aspirin 325 mg daily, atorvastatin. I do not see any other anti hypertensives. I do not see any other anticoagulants. Related Data Home Medications ?Medication ?Instructions ?Recorded ?Confirmed ascorbic acid (vitamin C) 1,000 mg 1,000 mg PO DAILY 04/14/22 07/19/25 tablet calcium carbonate 600 mg PO DAILY 04/14/22 07/19/25 cholecalciferol (vitamin D3) 25 25 mcg PO DAILY 04/14/22 07/19/25 mcg (1,000 unit) tablet duloxetine 60 mg capsule,delayed 60 mg PO DAILY 11/09/24 07/19/25 release sennosides 8.6 mg-docusate sodium 2 tab-cap PO HS 11/09/24 07/19/25 50 mg tablet insulin aspart U-100 100 unit/mL 10 - 20 unit subcut TID 07/19/25 07/19/25 (3 mL) subcutaneous pen (Novolog FlexPen U-100 Insulin aspart) torsemide 20 mg tablet 40 mg PO DAILY 07/19/25 07/19/25 Previous Rx's ?Medication ?Instructions ?Recorded pen needle, diabetic 31 gauge x #400 ea 05/10/2401/12 (UltiCare Pen Needle) tizanidine 4 mg tablet 4 mg PO BID PRN muscle spasticity 11/02/24 #30 tabs aspirin 325 mg tablet 325 mg PO DAILY #90 tabs 11/09/24 blood-glucose sensor (Dexcom G7 #9 ea 12/04/24 Sensor device) 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-glucose,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,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 #1 ea 12/04/24 (Dexcom G7 [employer]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) pregabalin 150 mg capsule (Lyrica) See Rx Instructions PO BID #270 01/16/25 caps atorvastatin 80 mg tablet 80 mg PO QPM #90 tabs 01/23/25 zolpidem 10 mg tablet 10 mg PO HS PRN insomnia #90 tabs 01/23/25 insulin glargine 100 unit/mL (3 30 unit (0.3 mL) subcut BID #45 mL 01/24/25 mL) subcutaneous pen (Basaglar KwikPen U-100 Insulin) Allergies Allergy/AdvReac Type Severity Reaction Status Date / Time No Known Drug Allergies Allergy Verified 07/17/25 11:06 [facility] Medical History Primary hypertension ?I10 - Essential (primary) hypertension (ICD-10) Type 2 diabetes mellitus, with long-term current use of insulin ?E11.9 - Type 2 diabetes mellitus without complications (ICD-10) ?Z79.4 - prison (current) use of insulin (ICD-10) CVA (cerebral vascular accident) ?I63.9 - Cerebral infarction, unspecified (ICD-10) Lumbar radiculopathy ?M54.16 - Radiculopathy, lumbar region (ICD-10) Headache ?R51.9 - Headache, unspecified (ICD-10) History of ischemic stroke ?Z86.73 - Personal history of transient ischemic attack (TIA), and cerebral infarction without residual deficits (ICD-10) COVID-19 ?U07.1 - COVID-19 (ICD-10) Mixed hyperlipidemia ?E78.2 - Mixed hyperlipidemia (ICD-10) Incontinence of urine ?R32 - Unspecified urinary incontinence (ICD-10) Chronic constipation ?K59.09 - Other constipation (ICD-10) 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 (01/03/20) ?E11.610 - Type 2 diabetes mellitus with diabetic neuropathic arthropathy (ICD-10) Traumatic brain injury (2016) ?S06.9X9A - Unspecified intracranial injury with loss of consciousness of unspecified duration, initial encounter (ICD-10) Tobacco use (02/27/13) ?Z72.0 - Tobacco use (ICD-10) Peripheral vascular disease ?I73.9 - Peripheral vascular disease, unspecified (ICD-10) Obesity with body mass index greater than 30 ?E66.9 - Obesity, unspecified (ICD-10) Malignant neoplasm of prostate ?C61 - Malignant neoplasm of prostate (ICD-10) Ischemic stroke (02/2008) ?I63.9 - Cerebral infarction, unspecified (ICD-10) Ischemic necrosis of foot ?I96 - Gangrene, not elsewhere classified (ICD-10) Insomnia ?G47.00 - Insomnia, unspecified (ICD-10) History of traumatic brain injury ?Z87.820 - Personal history of traumatic brain injury (ICD-10) History of transient ischemic attack ?Z86.73 - Personal history of transient ischemic attack (TIA), and cerebral infarction without residual deficits (ICD-10) History of suicidal ideation ?Z86.59 - Personal history of other mental and behavioral disorders (ICD-10) Diabetic ulcer of right midfoot (10/28/17) ?E11.621 - Type 2 diabetes mellitus with foot ulcer (ICD-10) ?L97.419 - Non-pressure chronic ulcer of right heel and midfoot with unspecified severity (ICD-10) Diabetic retinopathy ?E11.319 - Type 2 diabetes mellitus with unspecified diabetic retinopathy without macular edema (ICD-10) Diabetic neuropathy (12/02/12) ?E11.40 - Type 2 diabetes mellitus with diabetic neuropathy, unspecified (ICD-10) Chronic pain ?G89.29 - Other chronic pain (ICD-10) Anxiety (02/27/13) ?F41.9 - Anxiety disorder, unspecified (ICD-10) Surgical History History of lumbar spinal fusion ?Z98.1 - Arthrodesis status (ICD-10) History of eye surgery ?Z98.890 - Other specified postprocedural states (ICD-10) H/O cataract extraction ?Z98.49 - Cataract extraction status, unspecified eye (ICD-10) History of amputation of hallux ?Z89.419 - Acquired absence of unspecified great toe (ICD-10) Social History Narrative: -Patricia, retired, nonsmoker (quit 1974) What is your current living situation?: I presently have a place to live Problems where you live: no known problems Problems where you live details: N/A In the past 12 months, utilities in danger of being shut off: no In past 12 months, lack of transportation kept you from medical appts, meetings, work, or getting things needed for daily living: no In the past 12 mos, have been you worried that your food would run out before you had money to buy more?: never true In the past 12 mos, the food you bought just didn't last and you didn't have money to buy more?: never true Smoking Status: Former smoker What tobacco products do you use: cigarettes Smoking quit date/years: >15 years ago Do you use any of these nicotine containing products: None Second hand tobacco smoke exposure: No How often do you have a drink containing alcohol: monthly or less AUDIT-C Alcohol total score: 1 Non-prescribed substance use: denies use Caffeine: Yes How often does anyone, including family, friends and others, physically hurt you: never How often does anyone, including family, friends and others, insult or talk down to you: never How often does anyone, including family, friends and others, threaten you with harm: never How often does anyone, including family, friends and others, scream or curse at you: never service: No Exam Narrative: Exam Narrative: Primary Survey: A- patent. Speaking clearly. Phonation normal. No stridor. B- breathing easily. Lung sounds clear and equal. Oxygen saturation normal on room air C- no active bleeding. Blood pressure stable. Blood pressure is now 130/70. Heart rate in the 1 teens and 120s. Appears to be AFib on the monitor. Symmetric pulses and cap refill in 4 extremities. D- alert and oriented x3. GCS 15. No focal deficits. Able to sit himself up with assistance. Constitutional: Appears well-developed and well-nourished. Alert. Conversant. Non toxic. HENT: Head: Atraumatic. Nose: Nose normal. Mouth/Throat: Oral mucosa is clear and moist. no trismus. Pharynx normal. Tonsils symmetric. No tonsillar enlargement, erythema, or exudate. Eyes: Conjunctivae normal. EOM normal. Pupils equal, round, and reactive to light. No scleral icterus. Neck: Normal range of motion. Neck supple. No tracheal deviation present. Cardiovascular: Normal rate, regular rhythm. No gallop. No friction rub. No murmur heard. Symmetric radial artery pulses Pulmonary/Chest: Effort normal. No stridor. No respiratory distress. No wheezes. No rales. No rhonchi . No tenderness. Abdominal: Soft. Bowel sounds normal. No distension. No mass. No tenderness. No rebound. No guarding. Musculoskeletal: RUE: Normal range of motion. No tenderness. No deformity LUE: Normal range of motion. No tenderness. No deformity Pelvis is stable. No T or L-spine tenderness. No CVA tenderness. He does have 2+ edema affecting both of his legs. He does have compression stockings in place which I removed for exam. He does have some chronic skin changes on both of his anterior shins but no signs of any acute redness. He has a couple of small superficial areas of skin breakdown from blistering on the left anterior orona but no purulent drainage and no signs of any clear surrounding bacterial superinfection. He does have previous amputations of toes from both feet. He has a chronic wound on his right medial foot with a white, dry dressing in place. Surrounding skin looks normal. No signs of any acute ischemia or redness to suggest acute infection. Lymph: No signs of ascending lymphangitis Neurological: Alert and oriented to person, place, and time. Normal strength. CN II-VII intact. No sensory deficit. GCS eye subscore is 4. GCS verbal subscore is 5. GCS motor subscore is 6. Normal coordination . He is able to sit up and he is mentating normally. This is apparently improved compared to when EMS arrived at his home. No focal deficits. Speech is fluent. No facial droop. Tongue protrudes in the midline. Memory seems normal. Skin: Skin is warm and dry. No rash noted. No pallor. Normal capillary refill. Psychiatric: Normal mood. Normal affect. Const: Vital Signs, click to edit/add: Vital Signs - 24 hr 07/19/25 09:57 07/19/25 09:59 07/19/25 09:59 Temperature 97 F L Pulse Rate 132 H 125 H Pulse Rate [Right Radial] 120 H Respiratory Rate 17 14 19 Blood Pressure 92/71 Blood Pressure [Le ft Upper Arm] 92/71 Pulse Oximetry 90 93 Oxygen Delivery Me thod Room Air Room Air 07/19/25 10:00 07/19/25 10:01 07/19/25 10:15 Temperature Pulse Rate 113 H 127 H 128 H Pulse Rate [Right Radial] Respiratory Rate 18 12 Blood Pressure 108/71 Blood Pressure [Le ft Upper Arm] Pulse Oximetry 92 96 94 Oxygen Delivery Me thod 07/19/25 10:16 07/19/25 10:17 07/19/25 10:44 Temperature Pulse Rate 114 H 124 H 122 H Pulse Rate [Right Radial] Respiratory Rate 17 23 Blood Pressure 90/63 Blood Pressure [Le ft Upper Arm] Pulse Oximetry 94 93 91 Oxygen Delivery Me thod 07/19/25 10:45 07/19/25 10:46 07/19/25 10:55 Temperature Pulse Rate 136 H 119 H 127 H Pulse Rate [Right Radial] Respiratory Rate 16 14 20 Blood Pressure 83/68 L 102/73 Blood Pressure [Le ft Upper Arm] Pulse Oximetry 93 94 94 Oxygen Delivery Me thod Room Air 07/19/25 11:00 07/19/25 11:15 07/19/25 11:16 Temperature Pulse Rate 125 H 113 H 126 H Pulse Rate [Right Radial] Respiratory Rate 13 21 20 Blood Pressure 99/69 Blood Pressure [Le ft Upper Arm] Pulse Oximetry 92 93 93 Oxygen Delivery Me thod 07/19/25 11:19 07/19/25 11:30 07/19/25 11:31 Temperature Pulse Rate 121 H 117 H 111 H Pulse Rate [Right Radial] Respiratory Rate 16 14 21 Blood Pressure 97/66 100/74 Blood Pressure [Le ft Upper Arm] Pulse Oximetry 91 91 91 Oxygen Delivery Me thod 07/19/25 11:32 07/19/25 11:45 07/19/25 11:46 Temperature Pulse Rate 106 H 124 H 116 H Pulse Rate [Right Radial] Respiratory Rate 23 13 Blood Pressure 107/66 Blood Pressure [Le ft Upper Arm] Pulse Oximetry 91 94 94 Oxygen Delivery Me thod 07/19/25 12:00 07/19/25 12:01 07/19/25 12:15 Temperature Pulse Rate 108 H 117 H 127 H Pulse Rate [Right Radial] Respiratory Rate Blood Pressure 104/89 Blood Pressure [Le ft Upper Arm] Pulse Oximetry 90 91 93 Oxygen Delivery Me thod 07/19/25 12:16 07/19/25 12:30 07/19/25 12:32 Temperature Pulse Rate 118 H 129 H 121 H Pulse Rate [Right Radial] Respiratory Rate 17 25 H Blood Pressure 97/73 102/63 Blood Pressure [Le ft Upper Arm] Pulse Oximetry 95 91 95 Oxygen Delivery Me thod 07/19/25 12:45 07/19/25 12:46 07/19/25 13:00 Temperature Pulse Rate 131 H 124 H 119 H Pulse Rate [Right Radial] Respiratory Rate 21 18 Blood Pressure 101/59 L Blood Pressure [Le ft Upper Arm] Pulse Oximetry 93 95 93 Oxygen Delivery Me thod 07/19/25 13:01 07/19/25 13:15 07/19/25 13:16 Temperature Pulse Rate 124 H 126 H 117 H Pulse Rate [Right Radial] Respiratory Rate 16 19 17 Blood Pressure 102/75 110/66 Blood Pressure [Le ft Upper Arm] Pulse Oximetry 94 94 94 Oxygen Delivery Me thod 07/19/25 13:30 07/19/25 13:32 07/19/25 13:45 Temperature Pulse Rate 132 H 129 H 126 H Pulse Rate [Right Radial] Respiratory Rate 13 20 19 Blood Pressure 89/67 L Blood Pressure [Le ft Upper Arm] Pulse Oximetry 94 94 93 Oxygen Delivery Me thod 07/19/25 13:46 07/19/25 14:00 07/19/25 14:01 Temperature Pulse Rate 113 H 117 H 113 H Pulse Rate [Right Radial] Respiratory Rate 14 17 Blood Pressure 93/69 98/76 Blood Pressure [Le ft Upper Arm] Pulse Oximetry 95 91 92 Oxygen Delivery Me thod 07/19/25 14:15 07/19/25 14:16 07/19/25 14:17 Temperature Pulse Rate 105 H 122 H 119 H Pulse Rate [Right Radial] Respiratory Rate 11 L Blood Pressure 70/48 L Blood Pressure [Le ft Upper Arm] Pulse Oximetry 95 97 96 Oxygen Delivery Me thod 07/19/25 14:26 07/19/25 14:30 07/19/25 14:32 Temperature Pulse Rate 105 H 109 H 117 H Pulse Rate [Right Radial] Respiratory Rate 12 13 40 H Blood Pressure 91/66 106/71 Blood Pressure [Le ft Upper Arm] Pulse Oximetry 94 96 93 Oxygen Delivery Me thod Room Air 07/19/25 14:45 07/19/25 14:46 07/19/25 15:00 Temperature Pulse Rate 122 H 118 H 121 H Pulse Rate [Right Radial] Respiratory Rate 15 11 L 9 L Blood Pressure 113/76 Blood Pressure [Le ft Upper Arm] Pulse Oximetry 96 95 95 Oxygen Delivery Me thod 07/19/25 15:01 07/19/25 15:01 07/19/25 15:15 Temperature Pulse Rate 124 H 124 H 131 H Pulse Rate [Right Radial] Respiratory Rate 12 12 14 Blood Pressure 98/75 98/75 Blood Pressure [Le ft Upper Arm] Pulse Oximetry 95 95 92 Oxygen Delivery Me thod 07/19/25 15:16 07/19/25 15:30 07/19/25 15:32 Temperature Pulse Rate 124 H 124 H 107 H Pulse Rate [Right Radial] Respiratory Rate 16 16 9 L Blood Pressure 110/67 114/67 Blood Pressure [Le ft Upper Arm] Pulse Oximetry 93 94 93 Oxygen Delivery Me thod Room Air Course Course ED Course: Recheck-blood pressure stable after finishing 1st 100 mL bolus. Heart rate still in the 120s. AFib. Recheck-blood pressure still in the normal range currently 102/56. Heart rate 110-130 AFib on the monitor. Has completed 2nd 500 mL bolus. Will add diltiazem. Recheck-hemoglobin came back normal Recheck-blood pressure stable. Heart rate stools ranging about 110 -120 after diltiazem. Blood pressure remained stable. Will start diltiazem drip. Recheck-discussed with cardiology, Dr. Lu. Discussed the patient's presenting symptoms and AFib with RVR which is a new diagnosis but unclear if it is new onset. Troponins are mildly abnormal. First troponin was 0.06. Second troponin was 0.15. We feel that this likely represents demand ischemia rather than true acute coronary syndrome. Dr. Lu at thinks the patient would be very appropriate to manage here in [place] on a heparin drip while we trend his troponins get an echo. He does not think the patient needs transfer to [facility]. Discussed with hospitalist, Rosie Sexton. She accepts. Recheck-heart rate still not controlled on diltiazem drip 5 milligrams/hour. Will increase to 7.5 milligrams/hour but nurses note that his blood pressure and then is in the 90 systolic. Will order a 3rd 500 mL bolus as well as a single amp of calcium gluconate to prevent hypotension from the calcium channel helio. Recheck-patient accepted to the ICU here in [place]. Vital Signs Vital signs: Initial Vital Signs Pulse Rate 132 H 07/19/25 09:57 Respiratory Rate 17 07/19/25 09:57 Pulse Oximetry 90 07/19/25 09:57 Vital Signs Pulse Rate 132 H 07/19/25 09:57 Respiratory Rate 17 07/19/25 09:57 Pulse Oximetry 90 07/19/25 09:57 Temperature 97 F L 07/19/25 09:59 Pulse Rate 107 H 07/19/25 15:32 Respiratory Rate 9 L 07/19/25 15:32 Blood Pressure 114/67 07/19/25 15:32 Pulse Oximetry 93 07/19/25 15:32 Oxygen Delivery Method Room Air 07/19/25 15:16 Medications Administered Medications: Generic Name Dose Route Start Last Admin Trade Name Raulq PRN Reason Stop Dose Admin Sodium Chloride 1,000 mls @ 125 mls/hr 07/19/25 12:35 07/19/25 12:44 0.9 % Sodium Chloride 1000 Ml IV 125 mls/hr .Q8H GABRIELA Administration Heparin Sodium/Dextrose 25,000 unit in 500 mls @ 0 mls/hr 07/19/25 13:15 07/19/25 13:24 Heparin IV 1,000 unit/hr .Q0M GABRIELA 20 mls/hr Protocol Administration Per Protocol Discontinued Medications Generic Name Dose Route Start Last Admin Trade Name Raulq PRN Reason Stop Dose Admin Aspirin 324 mg 07/19/25 13:03 07/19/25 13:25 Aspirin 81 Mg Tab.Chew PO 07/19/25 13:04 324 mg ONCE ONE Administration Diltiazem HCl 20 mg 07/19/25 11:01 07/19/25 11:11 Diltiazem 5 Mg/Ml Inj IVP 07/19/25 11:02 20 mg ONCE ONE Administration Heparin Sodium (Porcine) 4,000 unit 07/19/25 13:03 07/19/25 13:23 Heparin 5,000 Unit/0.5 Ml Inj IVP 07/19/25 13:04 4,000 unit ONCE ONE Administration Sodium Chloride 500 mls @ 500 mls/hr 07/19/25 10:01 07/19/25 11:32 0.9 % Sodium Chloride 500 Ml IV 07/19/25 11:00 Infused .Q1H ONE Infusion Sodium Chloride 500 mls @ 500 mls/hr 07/19/25 14:02 07/19/25 14:17 0.9 % Sodium Chloride 500 Ml IV 07/19/25 15:01 500 mls/hr .Q1H ONE Administration Calcium Gluconate/Sodium Chloride 1,000 mg in 50 mls @ 100 mls/hr 07/19/25 14:02 07/19/25 14:50 Calcium Gluc 1,000mg/50 Ml IVPB 07/19/25 14:31 Infused ONCE ONE Infusion Medical Decision Making MDM Narrative Medical decision making narrative: [age]-year-old gentleman brought in by EMS from home for generalized weakness. He was hypotensive with systolic blood pressure in the 80s when EMS arrived but came up to normal tension during transport and has remained normotensive throughout his stay here in the ER. Broad differential is considered as a cause for hypotension including bleeding, sepsis, dehydration, anaphylaxis, obstructive shock. Overall initially would favor probably dehydration and hypovolemia as a cause since he was put on increased dose of torsemide 2 days ago by his PCP. Laboratory workup shows a normal hemoglobin at 15. He denies any external bleeding or black or bloody stools. No abdominal pain or flank pain to suggest abdominal aortic aneurysm or retroperitoneal hematoma. Laboratory workup shows normal electrolytes and normal kidney function but a slight rise in his creatinine from recent baseline of 1.2 up to 1.4. He is not febrile. White count is normal. He does have tachycardia from AFib. No other clear evidence for active infection. Venous lactic acid is normal. EKG and secured entrance monitor do confirm AFib with rapid ventricular response. The patient is not feeling any palpitations or noticing his AFib. He says he feels fine. His only symptom was that he was weak this morning while his blood pressure was low. It is unclear if this is a new onset AFib or if this might be an asymptomatic paroxysmal AFib. Since we do not know clear time of onset, risk for causing an embolic stroke would outweigh the benefit of cardioversion. Will opt for rate control with diltiazem. Patient did require diltiazem bolus and then Dilt drip for rate control. Troponin is abnormal,. After discussion with Cardiology this is not felt to represent a true computer syndrome. More likely would be demand ischemia. Cardiology recommends admission here for rate control with his AFib rather than transfer to [place]. Lab Data Labs: Lab Results 07/19/25 07/19/25 Range/Units 10:50 12:15 WBC 10.25 (4.50-11.00) K/uL RBC 4.93 (4.30-5.90) m/uL Hgb 15.0 (13.5-17.5) gm/dL Hct 47.2 (37.0-53.0) % MCV 96 (80-100) fL MCH 30 (26-34) pg MCHC 32 (32-36) gm/dL RDW Coeff of Jun 13.5 (11.5-15.5) % Plt Count 189 (140-440) K/uL Neut % (Auto) 73.6 H (42.0-72.0) % Lymph % (Auto) 14.7 L (20-44) % [place] % (Auto) 9.5 (0.0-11.0) % Eos % (Auto) 1.5 (0.0-7.0) % Baso % (Auto) 0.4 (0.0-3.0) % Neut # (Auto) 7.50 H (1.7-7.0) K/uL Lymph # (Auto) 1.50 (0.90-2.90) K/uL [place] # (Auto) 1.00 H (0.00-0.90) K/UL Eos # (Auto) 0.15 (0.00-0.50) K/uL Baso # (Auto) 0.04 (0.00-0.30) K/uL Abs Immat Gran (auto) 0.03 (0.00-0.30) K/uL Imm/Tot Granulo (auto) 0.3 % Sodium 135 (135-149) mmol/L Potassium 4.4 (3.6-5.1) mmol/L Chloride 98 (96-114) mmol/L Carbon Dioxide 32 (20-32) mmol/L Anion Gap 5 L (7-15) mEq/L BUN 24 (7-30) mg/dL Creatinine 1.4 (0.5-1.5) mg/dL Estimated Creat Clear 45.97 Estimated GFR 50 ml/min Glucose 210 H (60-115) mg/dL Lactate 1.7 (0.5-1.9) mmol/L Calcium 9.2 (8.4-10.6) mg/dL Troponin I 0.06 H* 0.15 H* (0.01-0.04) ng/mL ECG Data Attestation: I personally reviewed and interpreted this ECG as follows: Interpretation: atrial fibrillation with RVR. Rate 125 Unable to calculate SD Normal QRS axis. No definite ST segment elevation or depression. There is either artifact in lead [address]. I think this is related to his AFib. QT 356, QTC 513 Critical Care Time Critical Care Time Critical Care Time: Yes Attestation: The patient required my highest level preparedness to intervene emergently and I personally spent this critical care time directly and personally managing the patient. This critical care time included: Obtaining a history; Examining the patient; Pulse oximetry; Ordering and reviewing of studies; Arranging urgent treatment with development of a management plan; Evaluation of patients response to treatment; Frequent reassessment discussions with other providers. This critical care time was performed to assess and manage the high probability of imminent life-threatening deterioration that could result in multiorgan failure. It was exclusive of separate billable procedures and treating other patients and teaching time. Total Critical Care Time in Minutes: 35 Discharge Plan Discharge Clinical Impression: Atrial fibrillation with RVR, Acute hypotension, Troponin level elevated Patient Disposition: Admitted As Inpatient
[2025-07-19] MEDS: 0.9 % SODIUM CHLORIDE 500 ML 500 ML IV ×2 (10:47→14:17)
[2025-07-19] MEDS: dilTIAZem 5 MG/ML inj 20 MG IVP (11:11)
[2025-07-19 11:15] LABS: Hematocrit* 47.2 % (37.0-53.0); Hemoglobin* 15.0 gm/dL (13.5-17.5); Immature Granulocytes Abs Auto 0.03 K/uL (0.00-0.30); Immature Granulocytes Pct Auto 0.3 %; Lactate* 1.7 mmol/L (0.5-1.9); Lymphocytes Absolute Auto 1.50 K/uL (0.90-2.90); Mean Corpuscular HGB Conc 32 gm/dL (32-36); Mean Corpuscular Hemoglobin 30 pg (26-34); Mean Corpuscular Volume 96 fL (80-100); RDW Coefficient of Variation % 13.5 % (11.5-15.5); Red Blood Count* 4.93 m/uL (4.30-5.90); White Blood Count* 10.25 K/uL (4.50-11.00)
[2025-07-19 11:16] LABS: Slide Review Reflex No
[2025-07-19 11:30] LABS: Chloride* 98 mmol/L (96-114)
[2025-07-19 11:31] LABS: Potassium* 4.4 mmol/L (3.6-5.1); Sodium* 135 mmol/L (135-149)
[2025-07-19 11:34] LABS: Anion Gap 5 mEq/L (7-15); Blood Urea Nitrogen* 24 mg/dL (7-30); Calcium* 9.2 mg/dL (8.4-10.6); Carbon Dioxide* 32 mmol/L (20-32); Creatinine* 1.4 mg/dL (0.5-1.5); Est. Creatinine Clearance* 45.97; Estimated Glomerular Filt Rate 50 ml/min; Glucose* 210 mg/dL (60-115)
[2025-07-19] MEDS: HEPARIN 5,000 UNIT/0.5 ML INJ 4000 UNIT IVP (13:23)
[2025-07-19] MEDS: HEPARIN 25,000 UNIT/500 ML BAG 20 UNIT IV (13:24)
[2025-07-19] MEDS: ASPIRIN 81 MG TAB.CHEW 324 MG PO (13:25)
[2025-07-19] MEDS: CALCIUM GLUC 1,000MG/50 ML 1,000 MG/50 ML BAG 100 MG IVPB (14:16)
--- NOTE | 2025-07-19 16:34 | PM.IMHP1 ---
Assessment and Plan Assessment and plan (1) Atrial fibrillation with RVR: Problem comment: - new diagnosis 07/19/25 - admit to CCU on diltiazem gtt, transition to oral medication when rate <100 - TTE to evaluate EF and cardiac structure - CHADs2-VAsc 7; amenable to initiation of Eliquis after discussion, will stop 325mg ASA Status: Acute (2) Troponin level elevated: Problem comment: - presumably Type II NSTEMI 2/2 arrythmia, follow to peak - no chest pain, TTE ordered Status: Acute (3) Lower extremity edema: Problem comment: - chronic, recent increase - on Torsemide, recently increased from 20 ->40mg - continue this, consider addition of Spironolactone pending electrolytes, clinical course, and TTE results - trial of Edema Wear Status: Acute (4) Type 2 diabetes mellitus, with long-term current use of insulin: Problem comment: - A1C 8.3 - accuchecks and home Glargine, will use our sliding scale (uses Novolog sliding scale at home) Status: Acute (5) Acute hypotension: Problem comment: - BP angella 70/48 in the ER, resolved after addition of Calcium in ER - continue to monitor Status: Acute (6) Leg ulcer, left: Problem comment: - Sees [facility]. Has had past ulcers Status: Acute (7) Chronic pain: Problem comment: - on Lyrica, Tizanadine, Duloxetine Status: Chronic (8) Peripheral vascular disease: Problem comment: - on ASA and statin, transitioning to Eliquis Status: Chronic Plan - per above - updated bedside, questions answered Hospitalist- H&P: HPI History of Present Illness Date Seen: 07/19/25 Chief complaint: weakness Narrative: Matheus Ballard is a 80 year old male who presents to the emergency room this morning with a fairly abrupt onset of weakness this morning. He was unable to get up from the toilet so his called 911; she noted that he also had a grayish color to his skin this morning. EMS noted initial hypotension, with a systolic blood pressure of 80, heart rate that was irregular in the 100-110s. He was given a bolus and then transferred to the emergency room. ER course and findings: - AFib RVR with heart rate in 130s, this is a new diagnosis for him - reassuring labs (TSH pending) - started on a diltiazem drip - elevated troponin at 0.06-->0.15, no chest pain. Cardiology felt this likely represented type 2 NSTEMI and recommend following troponins during stay, obtain TTE Patient is admitted to hospital for new AFib RVR, evaluation of cardiac structure and function, medication management. History is reviewed and updated below; notably recently had his torsemide increased for worsening lower extremity edema. He is following with our wound care center for BLE wounds. Review of Systems Status of ROS: Reports: 10 or more systems reviewed and unremarkable except as noted in History and below Medical Decision Making Medical Decision Making Code Status: Full code Has patient completed a Health Care Directive: No During This Stay, Who Would You Like To Make Decisions For You In The Event You Are Unable To Make Them For Yourself?: Patricia [facility] Medical History (Updated 07/19/25 @ 20:47 by Aure Huerta MD) Primary hypertension ?I10 - Essential (primary) hypertension (ICD-10) Type 2 diabetes mellitus, with long-term current use of insulin ?E11.9 - Type 2 diabetes mellitus without complications (ICD-10) ?Z79.4 - retirement (current) use of insulin (ICD-10) CVA (cerebral vascular accident) ?I63.9 - Cerebral infarction, unspecified (ICD-10) Lumbar radiculopathy ?M54.16 - Radiculopathy, lumbar region (ICD-10) Headache ?R51.9 - Headache, unspecified (ICD-10) History of ischemic stroke ?Z86.73 - Personal history of transient ischemic attack (TIA), and cerebral infarction without residual deficits (ICD-10) Mixed hyperlipidemia ?E78.2 - Mixed hyperlipidemia (ICD-10) Incontinence of urine ?R32 - Unspecified urinary incontinence (ICD-10) Chronic constipation ?K59.09 - Other constipation (ICD-10) 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 (01/03/20) ?E11.610 - Type 2 diabetes mellitus with diabetic neuropathic arthropathy (ICD-10) Traumatic brain injury (2016) ?S06.9X9A - Unspecified intracranial injury with loss of consciousness of unspecified duration, initial encounter (ICD-10) Tobacco use (02/27/13) ?Z72.0 - Tobacco use (ICD-10) Peripheral vascular disease ?I73.9 - Peripheral vascular disease, unspecified (ICD-10) Obesity with body mass index greater than 30 ?E66.9 - Obesity, unspecified (ICD-10) Malignant neoplasm of prostate ?C61 - Malignant neoplasm of prostate (ICD-10) Ischemic stroke (02/2008) ?I63.9 - Cerebral infarction, unspecified (ICD-10) Ischemic necrosis of foot ?I96 - Gangrene, not elsewhere classified (ICD-10) Insomnia ?G47.00 - Insomnia, unspecified (ICD-10) History of traumatic brain injury ?Z87.820 - Personal history of traumatic brain injury (ICD-10) History of transient ischemic attack ?Z86.73 - Personal history of transient ischemic attack (TIA), and cerebral infarction without residual deficits (ICD-10) History of suicidal ideation ?Z86.59 - Personal history of other mental and behavioral disorders (ICD-10) Diabetic ulcer of right midfoot (10/28/17) ?E11.621 - Type 2 diabetes mellitus with foot ulcer (ICD-10) ?L97.419 - Non-pressure chronic ulcer of right heel and midfoot with unspecified severity (ICD-10) Diabetic retinopathy ?E11.319 - Type 2 diabetes mellitus with unspecified diabetic retinopathy without macular edema (ICD-10) Diabetic neuropathy (12/02/12) ?E11.40 - Type 2 diabetes mellitus with diabetic neuropathy, unspecified (ICD-10) Chronic pain ?G89.29 - Other chronic pain (ICD-10) Anxiety (02/27/13) ?F41.9 - Anxiety disorder, unspecified (ICD-10) Surgical History History of lumbar spinal fusion ?Z98.1 - Arthrodesis status (ICD-10) History of eye surgery ?Z98.890 - Other specified postprocedural states (ICD-10) H/O cataract extraction ?Z98.49 - Cataract extraction status, unspecified eye (ICD-10) History of amputation of hallux ?Z89.419 - Acquired absence of unspecified great toe (ICD-10) Social History Narrative: -Patricia, retired, nonsmoker (quit 1974) What is your current living situation?: I presently have a place to live Problems where you live: no known problems Problems where you live details: N/A In the past 12 months, utilities in danger of being shut off: no In past 12 months, lack of transportation kept you from medical appts, meetings, work, or getting things needed for daily living: no In the past 12 mos, have been you worried that your food would run out before you had money to buy more?: never true In the past 12 mos, the food you bought just didn't last and you didn't have money to buy more?: never true Smoking Status: Former smoker What tobacco products do you use: cigarettes Smoking quit date/years: >15 years ago Do you use any of these nicotine containing products: None Second hand tobacco smoke exposure: No How often do you have a drink containing alcohol: never AUDIT-C Alcohol total score: 0 Non-prescribed substance use: denies use Caffeine: Yes How often does anyone, including family, friends and others, physically hurt you: never How often does anyone, including family, friends and others, insult or talk down to you: never How often does anyone, including family, friends and others, threaten you with harm: never How often does anyone, including family, friends and others, scream or curse at you: never service: No Meds Home Medications and Allergies Home Medications ?Medication ?Instructions ?Recorded ?Confirmed ?Type ascorbic acid (vitamin C) 1,000 mg 1,000 mg PO DAILY 04/14/22 07/19/25 History tablet calcium carbonate 600 mg PO DAILY 04/14/22 07/19/25 History cholecalciferol (vitamin D3) 25 25 mcg PO DAILY 04/14/22 07/19/25 History mcg (1,000 unit) tablet pen needle, diabetic 31 gauge x #400 ea 05/10/24 05/03/25 Rx 5/16 (UltiCare Pen Needle) tizanidine 4 mg tablet 4 mg PO BID PRN muscle spasticity 11/02/24 07/19/25 Rx #30 tabs aspirin 325 mg tablet 325 mg PO DAILY #90 tabs 11/09/24 07/19/25 Rx duloxetine 60 mg capsule,delayed 60 mg PO DAILY 11/09/24 07/19/25 History release sennosides 8.6 mg-docusate sodium 2 tab-cap PO HS 11/09/24 07/19/25 History 50 mg tablet blood-glucose sensor (Dexcom G7 #9 ea 12/04/24 05/03/25 Rx Sensor device) blood-glucose,school transportation director,cont #1 ea 12/04/24 05/03/25 Rx (Dexcom G7 Holter Scanning Technician) pregabalin 150 mg capsule (Lyrica) See Rx Instructions PO BID #270 01/16/25 07/19/25 Rx caps atorvastatin 80 mg tablet 80 mg PO QPM #90 tabs 01/23/25 07/19/25 Rx zolpidem 10 mg tablet 10 mg PO HS PRN insomnia #90 tabs 01/23/25 07/19/25 Rx insulin glargine 100 unit/mL (3 30 unit (0.3 mL) subcut BID #45 mL 01/24/25 07/19/25 Rx mL) subcutaneous pen (Basaglar KwikPen U-100 Insulin) insulin aspart U-100 100 unit/mL 10 - 20 unit subcut TID 07/19/25 07/19/25 History (3 mL) subcutaneous pen (Novolog FlexPen U-100 Insulin aspart) torsemide 20 mg tablet 40 mg PO DAILY 07/19/25 07/19/25 History Allergies Allergy/AdvReac Type Severity Reaction Status Date / Time No Known Drug Allergies Allergy Verified 07/17/25 11:06 Exam Narrative: Exam Narrative: GEN: Alert and oriented, nontoxic HEENT: EOMIs bilaterally, no scleral icterus CV: Irregular rhythm, rate in the 110s upon admission R: LCTA bilaterally without concerning wheezing Ext: 2+ BLE edema. Erythema of BLE c/w PVD. 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 R plantar wound covered Neuro: No focal deficits or resting tremor, gait not observed Psych: Appropriate Const: Vital Signs, click to edit/add: Vital Signs - 24 hr 07/19/25 09:57 07/19/25 09:59 07/19/25 09:59 Temperature 97 F L Pulse Rate 132 H 125 H Pulse Rate [Right Radial] 120 H Respiratory Rate 17 14 19 Blood Pressure 92/71 Blood Pressure [Le ft Upper Arm] 92/71 Pulse Oximetry 90 93 Oxygen Delivery Me thod Room Air Room Air 07/19/25 10:00 07/19/25 10:01 07/19/25 10:15 Temperature Pulse Rate 113 H 127 H 128 H Pulse Rate [Right Radial] Respiratory Rate 18 12 Blood Pressure 108/71 Blood Pressure [Le ft Upper Arm] Pulse Oximetry 92 96 94 Oxygen Delivery Me thod 07/19/25 10:16 07/19/25 10:17 07/19/25 10:44 Temperature Pulse Rate 114 H 124 H 122 H Pulse Rate [Right Radial] Respiratory Rate 17 23 Blood Pressure 90/63 Blood Pressure [Le ft Upper Arm] Pulse Oximetry 94 93 91 Oxygen Delivery Me thod 07/19/25 10:45 07/19/25 10:46 07/19/25 10:55 Temperature Pulse Rate 136 H 119 H 127 H Pulse Rate [Right Radial] Respiratory Rate 16 14 20 Blood Pressure 83/68 L 102/73 Blood Pressure [Le ft Upper Arm] Pulse Oximetry 93 94 94 Oxygen Delivery Me thod Room Air 07/19/25 11:00 07/19/25 11:15 07/19/25 11:16 Temperature Pulse Rate 125 H 113 H 126 H Pulse Rate [Right Radial] Respiratory Rate 13 21 20 Blood Pressure 99/69 Blood Pressure [Le ft Upper Arm] Pulse Oximetry 92 93 93 Oxygen Delivery Me thod 07/19/25 11:19 07/19/25 11:30 07/19/25 11:31 Temperature Pulse Rate 121 H 117 H 111 H Pulse Rate [Right Radial] Respiratory Rate 16 14 21 Blood Pressure 97/66 100/74 Blood Pressure [Le ft Upper Arm] Pulse Oximetry 91 91 91 Oxygen Delivery Me thod 07/19/25 11:32 07/19/25 11:45 07/19/25 11:46 Temperature Pulse Rate 106 H 124 H 116 H Pulse Rate [Right Radial] Respiratory Rate 23 13 Blood Pressure 107/66 Blood Pressure [Le ft Upper Arm] Pulse Oximetry 91 94 94 Oxygen Delivery Me thod 07/19/25 12:00 07/19/25 12:01 07/19/25 12:15 Temperature Pulse Rate 108 H 117 H 127 H Pulse Rate [Right Radial] Respiratory Rate Blood Pressure 104/89 Blood Pressure [Le ft Upper Arm] Pulse Oximetry 90 91 93 Oxygen Delivery Me thod 07/19/25 12:16 07/19/25 12:30 07/19/25 12:32 Temperature Pulse Rate 118 H 129 H 121 H Pulse Rate [Right Radial] Respiratory Rate 17 25 H Blood Pressure 97/73 102/63 Blood Pressure [Le ft Upper Arm] Pulse Oximetry 95 91 95 Oxygen Delivery Me thod 07/19/25 12:45 07/19/25 12:46 07/19/25 13:00 Temperature Pulse Rate 131 H 124 H 119 H Pulse Rate [Right Radial] Respiratory Rate 21 18 Blood Pressure 101/59 L Blood Pressure [Le ft Upper Arm] Pulse Oximetry 93 95 93 Oxygen Delivery Me thod 07/19/25 13:01 07/19/25 13:15 07/19/25 13:16 Temperature Pulse Rate 124 H 126 H 117 H Pulse Rate [Right Radial] Respiratory Rate 16 19 17 Blood Pressure 102/75 110/66 Blood Pressure [Le ft Upper Arm] Pulse Oximetry 94 94 94 Oxygen Delivery Me thod 07/19/25 13:30 07/19/25 13:32 07/19/25 13:45 Temperature Pulse Rate 132 H 129 H 126 H Pulse Rate [Right Radial] Respiratory Rate 13 20 19 Blood Pressure 89/67 L Blood Pressure [Le ft Upper Arm] Pulse Oximetry 94 94 93 Oxygen Delivery Me thod 07/19/25 13:46 07/19/25 14:00 07/19/25 14:01 Temperature Pulse Rate 113 H 117 H 113 H Pulse Rate [Right Radial] Respiratory Rate 14 17 Blood Pressure 93/69 98/76 Blood Pressure [Le ft Upper Arm] Pulse Oximetry 95 91 92 Oxygen Delivery Me thod 07/19/25 14:15 07/19/25 14:16 07/19/25 14:17 Temperature Pulse Rate 105 H 122 H 119 H Pulse Rate [Right Radial] Respiratory Rate 11 L Blood Pressure 70/48 L Blood Pressure [Le ft Upper Arm] Pulse Oximetry 95 97 96 Oxygen Delivery Me thod 07/19/25 14:26 07/19/25 14:30 07/19/25 14:32 Temperature Pulse Rate 105 H 109 H 117 H Pulse Rate [Right Radial] Respiratory Rate 12 13 40 H Blood Pressure 91/66 106/71 Blood Pressure [Le ft Upper Arm] Pulse Oximetry 94 96 93 Oxygen Delivery Me thod Room Air 07/19/25 14:45 07/19/25 14:46 07/19/25 15:00 Temperature Pulse Rate 122 H 118 H 121 H Pulse Rate [Right Radial] Respiratory Rate 15 11 L 9 L Blood Pressure 113/76 Blood Pressure [Le ft Upper Arm] Pulse Oximetry 96 95 95 Oxygen Delivery Me thod 07/19/25 15:01 07/19/25 15:01 07/19/25 15:15 Temperature Pulse Rate 124 H 124 H 131 H Pulse Rate [Right Radial] Respiratory Rate 12 12 14 Blood Pressure 98/75 98/75 Blood Pressure [Le ft Upper Arm] Pulse Oximetry 95 95 92 Oxygen Delivery Me thod 07/19/25 15:16 07/19/25 15:30 07/19/25 15:32 Temperature Pulse Rate 124 H 124 H 107 H Pulse Rate [Right Radial] Respiratory Rate 16 16 9 L Blood Pressure 110/67 114/67 Blood Pressure [Le ft Upper Arm] Pulse Oximetry 93 94 93 Oxygen Delivery Me thod Room Air Hospitalist - H&P: Result Labs Labs: Short CBC 07/19/25 Range/Units 10:50 WBC 10.25 (4.50-11.00) K/uL Hgb 15.0 (13.5-17.5) gm/dL Hct 47.2 (37.0-53.0) % Plt Count 189 (140-440) K/uL BMP 07/19/25 10:50 Sodium 135 Potassium 4.4 Chloride 98 Carbon Dioxide 32 BUN 24 Creatinine 1.4 Glucose 210 H Calcium 9.2 Cardiac Enzymes 07/19/25 07/19/25 Range/Units 10:50 12:15 Troponin I 0.06 H* 0.15 H* (0.01-0.04) ng/mL
[2025-07-19] MEDS: dilTIAZem HCL 125 MG in 0.9 % SODIUM CHLORIDE 100 ml 100 ML 10 MG IVPB (16:46)
[2025-07-19] MEDS: MAGNESIUM IV 2 GM/50 ML PIGGYBACK IVPB (17:18)
[2025-07-19] MEDS: INSULIN ASPART 100 UNIT/ML SUBCUT ×3 (18:43→23:27)
--- NOTE | 2025-07-19 20:23 | PC.NURSE ---
End of shift [id number] - Pt arrived from ED at approximately 1545. Pt was not up from bed at start of shift, able to ambulate with 4 wheeled walker with x1 assist to bathroom during shift. Denies pain, SOB, n/v. Tolerating RA and regular diet/fluids. Pt HR note to be elevated on arrival to unit, observed to be WNL at end of shift. RN titrated medication in MAR per protocol. Pt appears to be resting comfortably in bed at end of shift with call light within reach at end of shift.
[2025-07-19] MEDS: ATORVASTATIN CALCIUM 40 MG TABLET 80 MG PO (21:17)
[2025-07-19] MEDS: APIXABAN 5 MG TABLET PO (21:17)
[2025-07-19] MEDS: PREGABALIN 100 MG CAPSULE 300 MG PO (21:17)
[2025-07-19] MEDS: METOPROLOL TARTRATE 25 MG TABLET 12.5 MG PO (21:17)
[2025-07-19] MEDS: SODIUM CHLORIDE 0.9 % (FLUSH) 10 ML SYRINGE 5 ML IVF (21:18)
--- NOTE | 2025-07-19 22:07 | PM.EN ---
Chart Event Note Chart Event Note: Troponin continues to slowly rise, patient continues to deny chest pain. Heparin drip has been discontinued as we have initiated Eliquis. Converted to sinus rhythm 2129, stopped diltiazem drip and initiated oral metoprolol BID Discussed rising troponin with Cardiology (Dr. Carpio) by phone, continue Eliquis without heparin drip given asymptomatic patient and overall improvement. TTE ordered for tomorrow
[2025-07-20] VITALS (10 sets, daily range): BP systolic 104–127; BP diastolic 53–69; PULSE 62–71; RESP 17–20; TEMP 36.2–36.7; O2SAT 90–97
[2025-07-20 06:26] LABS: Hematocrit* 41.9 % (37.0-53.0); Hemoglobin* 13.5 gm/dL (13.5-17.5); Immature Granulocytes Abs Auto 0.08 K/uL (0.00-0.30); Immature Granulocytes Pct Auto 1.0 %; Lymphocytes Absolute Auto 2.01 K/uL (0.90-2.90); Mean Corpuscular HGB Conc 32 gm/dL (32-36); Mean Corpuscular Hemoglobin 31 pg (26-34); Mean Corpuscular Volume 95 fL (80-100); RDW Coefficient of Variation % 13.7 % (11.5-15.5); Red Blood Count* 4.41 m/uL (4.30-5.90); White Blood Count* 7.76 K/uL (4.50-11.00)
[2025-07-20 06:28] LABS: Slide Review Reflex No
--- NOTE | 2025-07-20 06:34 | PC.NURSE ---
[id number]: Patient talkative and pleasant. HR converted from afib to sinus arrhythmia with a rate of 60-75. Denies chest pain. Denies N/V. Afebrile. Chronic back pain relieved with scheduled medications. Wounds (3) to BLE dressings C/D/I. Pt acknowledges weakness but overall feeling better.
[2025-07-20 06:40] LABS: Albumin* 3.3 g/dL (3.3-5.0); Chloride* 96 mmol/L (96-114); Potassium* 3.6 mmol/L (3.6-5.1); Sodium* 135 mmol/L (135-149)
[2025-07-20 06:43] LABS: Alanine Aminotransferase* 31 U/L (4-50); Alkaline Phosphatase* 72 U/L (40-150); Anion Gap 8 mEq/L (7-15); Aspartate Amino Transferase* 40 U/L (12-35); Bilirubin Total* 1.2 mg/dL (0.1-1.5); Blood Urea Nitrogen* 25 mg/dL (7-30); Carbon Dioxide* 31 mmol/L (20-32); Creatinine* 1.3 mg/dL (0.5-1.5); Est. Creatinine Clearance* 49.51; Estimated Glomerular Filt Rate 55 ml/min; Total Protein* 6.0 g/dL (6.0-8.3)
[2025-07-20 06:44] LABS: Calcium* 8.7 mg/dL (8.4-10.6); Glucose* 186 mg/dL (60-115)
[2025-07-20] MEDS: INSULIN ASPART 100 UNIT/ML SUBCUT (09:19)
[2025-07-20] MEDS: DULOXETINE 30 MG CAPSULE DR 60 MG PO (09:19)
[2025-07-20] MEDS: TORSEMIDE 20 MG TABLET 40 MG PO (09:19)
[2025-07-20] MEDS: METOPROLOL TARTRATE 25 MG TABLET 12.5 MG PO (09:20)
[2025-07-20] MEDS: SODIUM CHLORIDE 0.9 % (FLUSH) 10 ML SYRINGE 5 ML IVF (09:20)
[2025-07-20] MEDS: PREGABALIN 75 MG CAPSULE 150 MG PO (09:23)
[2025-07-20] MEDS: APIXABAN 5 MG TABLET PO (12:16)
--- NOTE | 2025-07-20 13:42 | PM.DS1 ---
DS: Providers Provider Time Seen by Provider: 09:30 Date Seen: 07/20/25 Date of admission: 07/19/25 16:01 Primary care physician: Dyllan Wagner MD Admitting Clinician: Aure Huerta MD Consults: 07/19/25 16:28 Consult to Physical Therapy [CONS] Routine Comment: Reason(s) for PT Consult:: Evaluate and Treat Any Restrictions?:: No Restrictions Consult to C++ Professor [CONS] Routine Comment: Reason for Consult:: Discharge Planning Needs 07/19/25 16:31 Consult to Occupational Therapy [CONS] Routine Comment: Reason(s) for OT Consult:: Evaluate and Treat Any Restrictions?:: No Restrictions Attending Physician on discharge: Aure Huerta MD Date of Discharge: 07/20/25 DS: Diagnosis Discharge Diagnosis (1) Atrial fibrillation with RVR: Status: Acute Problem details: - new diagnosis 07/19/25 - admited to CCU on diltiazem gtt, then converted and transitioned to oral metoprolol. Has remained in NSR. - TTE to evaluate EF and cardiac structure - CHADs2-VAsc 7; stopped 325mg ASA, started Eliquis, continue as outpatient - Ziopatch on discharge (2) Troponin level elevated: Status: Acute Problem details: - presumably Type II NSTEMI 2/2 arrythmia, peak trop this am of 1.13, now down to 0.98 - no chest pain, TTE complete (3) Lower extremity edema: Status: Acute Problem details: - chronic, recent increase - on Torsemide, recently increased from 20 ->40mg - Spironolactone added at discharge - trial of Edema Wear (4) Type 2 diabetes mellitus, with long-term current use of insulin: Status: Acute Problem details: - A1C 8.3 - accuchecks and home Glargine, will use our sliding scale (uses Novolog sliding scale at home) (5) Acute hypotension: Status: Acute Problem details: - BP angella 70/48 in the ER, resolved after addition of Calcium in ER - continue to monitor (6) Leg ulcer, left: Status: Acute Problem details: - F/u NH&C Wound care. Has had past ulcers (7) Chronic pain: Status: Chronic Problem details: - on Lyrica, Tizanadine, Duloxetine (8) Peripheral vascular disease: Status: Chronic Problem details: - on ASA and statin, transitioning to Eliquis plus statin DS: Summary Hospital Course Hospital Course: Per H&P: Matheus Ballard is a 80 year old male who presents to the emergency room this morning with a fairly abrupt onset of weakness this morning. He was unable to get up from the toilet so his called 911; she noted that he also had a grayish color to his skin this morning. EMS noted initial hypotension, with a systolic blood pressure of 80, heart rate that was irregular in the 100-110s. He was given a bolus and then transferred to the emergency room. ER course and findings: - AFib RVR with heart rate in 130s, this is a new diagnosis for him - reassuring labs (TSH pending) - started on a diltiazem drip - elevated troponin at 0.06-->0.15, no chest pain. Cardiology felt this likely represented type 2 NSTEMI and recommend following troponins during stay, obtain TTE Patient is admitted to hospital for new AFib RVR, evaluation of cardiac structure and function, medication management. History is reviewed and updated below; notably recently had his torsemide increased for worsening lower extremity edema. He is following with our wound care center for BLE wounds. Converted to sinus rhythm 2129 on 07/19. Dr. Huerta d/w Dr. Carpio ([facility] at [place]) and it was recommended to continue with Eliquis (stopped heparin). Has remained in sinus rhythm. Denies any CP or SOB. Weakness improved. TTE completed today. D/c'd on metoprolol, Eliquis (stop aspirin), spironolactone and d/c with Ziopatch. F/u with PCP. Time Spent with Patient Time attestation: Total time spent providing and/or coordinating discharge services: Today I spent 40 minutes seeing and discharging the patient, reviewing Expanse and EPIC notes/diagnostics/labs, discussing the care plan with our care team that includes social work, PT/OT, pharmacy, RT, detention and documenting my impressions and plan in the medical record. Exam Narrative: Exam Narrative: General: No acute distress. Awake, alert, oriented x3. Stories not completely cohesive and he gets mixed up on details especially when related to time. No pallor. No jaundice. Oropharynx: Clear. Mucous membranes moist. Cardiovascular: Regular rate and rhythm. No murmurs, gallops, or rubs. Respiratory: Clear to auscultation bilaterally. No wheezes or crackles. Abdomen: Bowel sounds present. Soft, nondistended, nontender. Extremities: 2+ bilateral lower extremity edema to knees. Const: Vital Signs, click to edit/add: Vital Signs - 24 hr 07/19/25 13:45 07/19/25 13:46 07/19/25 14:00 Temperature Pulse Rate 126 H 113 H 117 H Pulse Rate [Pulse Oximeter] Respiratory Rate 19 14 Blood Pressure 93/69 Blood Pressure [Ri ght Arm] Pulse Oximetry 93 95 91 Oxygen Delivery Me thod 07/19/25 14:01 07/19/25 14:15 07/19/25 14:16 Temperature Pulse Rate 113 H 105 H 122 H Pulse Rate [Pulse Oximeter] Respiratory Rate 17 Blood Pressure 98/76 70/48 L Blood Pressure [Ri ght Arm] Pulse Oximetry 92 95 97 Oxygen Delivery Me thod 07/19/25 14:17 07/19/25 14:26 07/19/25 14:30 Temperature Pulse Rate 119 H 105 H 109 H Pulse Rate [Pulse Oximeter] Respiratory Rate 11 L 12 13 Blood Pressure 91/66 Blood Pressure [Ri ght Arm] Pulse Oximetry 96 94 96 Oxygen Delivery Me thod Room Air 07/19/25 14:32 07/19/25 14:45 07/19/25 14:46 Temperature Pulse Rate 117 H 122 H 118 H Pulse Rate [Pulse Oximeter] Respiratory Rate 40 H 15 11 L Blood Pressure 106/71 113/76 Blood Pressure [Ri ght Arm] Pulse Oximetry 93 96 95 Oxygen Delivery Me thod 07/19/25 15:00 07/19/25 15:01 07/19/25 15:01 Temperature Pulse Rate 121 H 124 H 124 H Pulse Rate [Pulse Oximeter] Respiratory Rate 9 L 12 12 Blood Pressure 98/75 98/75 Blood Pressure [Ri ght Arm] Pulse Oximetry 95 95 95 Oxygen Delivery Me thod 07/19/25 15:15 07/19/25 15:16 07/19/25 15:30 Temperature Pulse Rate 131 H 124 H 124 H Pulse Rate [Pulse Oximeter] Respiratory Rate 14 16 16 Blood Pressure 110/67 Blood Pressure [Ri ght Arm] Pulse Oximetry 92 93 94 Oxygen Delivery Me thod Room Air 07/19/25 15:32 07/19/25 17:00 07/19/25 18:30 Temperature 97.1 F L Pulse Rate 107 H Pulse Rate [Pulse Oximeter] 117 H 64 Respiratory Rate 9 L 20 20 Blood Pressure 114/67 Blood Pressure [Ri ght Arm] 96/82 87/61 L Pulse Oximetry 93 93 95 Oxygen Delivery Me thod Room Air Room Air 07/19/25 18:37 07/19/25 18:45 07/19/25 19:00 Temperature 97.5 F L Pulse Rate Pulse Rate [Pulse Oximeter] 68 68 73 Respiratory Rate 22 Blood Pressure Blood Pressure [Ri ght Arm] 105/60 114/57 L 108/77 Pulse Oximetry 94 94 95 Oxygen Delivery Me thod Room Air Room Air Room Air 07/19/25 19:15 07/19/25 19:30 07/19/25 19:45 Temperature Pulse Rate Pulse Rate [Pulse Oximeter] 68 67 67 Respiratory Rate Blood Pressure Blood Pressure [Ri ght Arm] 102/37 L 108/62 117/62 Pulse Oximetry Oxygen Delivery Me thod 07/19/25 19:50 07/19/25 19:54 07/19/25 19:54 Temperature 97.7 F Pulse Rate 65 Pulse Rate [Pulse Oximeter] 129 H Respiratory Rate 20 20 Blood Pressure Blood Pressure [Ri ght Arm] 101/85 Pulse Oximetry 94 94 Oxygen Delivery Me thod Room Air Room Air 07/19/25 20:10 07/19/25 20:30 07/19/25 22:01 Temperature 97.6 F Pulse Rate Pulse Rate [Pulse Oximeter] 66 65 70 Respiratory Rate 20 Blood Pressure Blood Pressure [Ri ght Arm] 122/63 122/64 130/63 Pulse Oximetry 95 Oxygen Delivery Me thod Room Air 07/19/25 23:00 07/19/25 23:00 07/20/25 00:00 Temperature 97.2 F L Pulse Rate 63 Pulse Rate [Pulse Oximeter] 62 Respiratory Rate 18 18 Blood Pressure Blood Pressure [Ri ght Arm] 114/61 Pulse Oximetry 90 90 Oxygen Delivery Me thod Room Air Room Air 07/20/25 02:00 07/20/25 03:00 07/20/25 04:00 Temperature 98.1 F 97.8 F Pulse Rate 62 Pulse Rate [Pulse Oximeter] 62 66 Respiratory Rate 17 20 Blood Pressure Blood Pressure [Ri ght Arm] 114/54 L 104/62 Pulse Oximetry 92 93 Oxygen Delivery Me thod Room Air Room Air 07/20/25 06:00 07/20/25 07:00 07/20/25 08:00 Temperature 97.6 F Pulse Rate 64 Pulse Rate [Pulse Oximeter] 63 Respiratory Rate 20 18 Blood Pressure Blood Pressure [Ri ght Arm] 127/65 Pulse Oximetry 95 97 Oxygen Delivery Me thod Room Air Room Air 07/20/25 08:24 07/20/25 12:02 Temperature 97.8 F 97.6 F Pulse Rate Pulse Rate [Pulse Oximeter] 66 67 Respiratory Rate 18 18 Blood Pressure Blood Pressure [Ri ght Arm] 108/69 120/53 L Pulse Oximetry 97 93 Oxygen Delivery Me thod Room Air DS: Data Data Completed and Pending Completed studies during hospitalization: 07/19/2025 10:15 a.m. EKG: Atrial fibrillation with rapid ventricular response, 125 beats per minute, ST depression, consider subendocardial injury, abnormal QRS T angle, consider primary T-wave abnormality, abnormal EKG. 07/19/2025 9:30 p.m. EKG: Normal sinus rhythm with sinus arrhythmia, 73 beats per minute, nonspecific T-wave abnormality, prolonged QT, QTC interval 473 milliseconds. 07/20/2025 EKG: Sinus rhythm with marked sinus arrhythmia, 66 beats per minute, nonspecific T-wave abnormality, prolonged QT interval, QTC 475 milliseconds. Ordering Physician: Krzysztof Mclaughlin M.D. Date of Service: 07/19/25 Procedure(s): XR chest 2V Accession Number(s): [id number] cc: Dyllan Wagner M.D.; Krzysztof Mclaughlin M.D.~ For Patients: As a result of the 21st Century Cures Act, medical imaging exams and procedure reports are released immediately into your electronic medical record. You may view this report before your referring provider. If you have questions, please contact your health care provider. 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 Lungs clear. Stable mediastinum. IMPRESSION: No acute findings. Dictated by Dyllan Frazier MD @ 07/19/2025 10:45:20 AM (Electronically Signed) Labs on day of discharge: Labs from last 24 hours 07/20/25 07/20/25 07/19/25 10:56 06:02 20:05 WBC 7.76 RBC 4.41 Hgb 13.5 Hct 41.9 MCV 95 MCH 31 MCHC 32 RDW Coeff of Jun 13.7 Plt Count 192 Neut % (Auto) 56.8 Lymph % (Auto) 25.9 [place] % (Auto) 12.1 H Eos % (Auto) 3.7 Baso % (Auto) 0.5 Neut # (Auto) 4.40 Lymph # (Auto) 2.01 [place] # (Auto) 0.90 Eos # (Auto) 0.29 Baso # (Auto) 0.04 Abs Immat Gran (auto) 0.08 Imm/Tot Granulo (auto) 1.0 Sodium 135 Potassium 3.6 Chloride 96 Carbon Dioxide 31 Anion Gap 8 BUN 25 Creatinine 1.3 Estimated Creat Clear 49.51 Estimated GFR 55 Glucose 186 H Calcium 8.7 Total Bilirubin 1.2 AST 40 H ALT 31 Alkaline Phosphatase 72 Troponin I 0.98 H* 1.13 H* 0.89 H* Total Protein 6.0 Albumin 3.3 TSH Lab Acknowledgement 07/19/25 07/19/25 07/19/25 19:58 16:35 15:00 WBC RBC Hgb Hct MCV MCH MCHC RDW Coeff of Jun Plt Count Neut % (Auto) Lymph % (Auto) [place] % (Auto) Eos % (Auto) Baso % (Auto) Neut # (Auto) Lymph # (Auto) [place] # (Auto) Eos # (Auto) Baso # (Auto) Abs Immat Gran (auto) Imm/Tot Granulo (auto) Sodium Potassium Chloride Carbon Dioxide Anion Gap BUN Creatinine Estimated Creat Clear Estimated GFR Glucose Calcium Total Bilirubin AST ALT Alkaline Phosphatase Troponin I 0.53 H* Total Protein Albumin TSH 1.130 Lab Acknowledgement Test Added Preliminary micro results at discharge 07/19/25 10:50 Blood Culture - Preliminary Blood NO GROWTH AFTER 24 HOURS 07/19/25 11:05 Blood Culture - Preliminary Blood NO GROWTH AFTER 24 HOURS Discharge Plan Discharge Disposition: Home, Self-Care Date of Admission: 07/19/25 16:01 Attending Provider on Discharge: Liz Gibson Primary Care Provider: Dyllan Wagner Condition: Improved Anticipated Discharge Date/Time: 07/20/25 13:52 Discharge Medications: New metoprolol tartrate 25 mg Tablet 12.5 mg PO BID Qty: 30 0RF Eliquis 5 mg Tablet 5 mg PO BID Qty: 60 0RF spironolactone 25 mg tablet 25 mg PO DAILY Qty: 30 0RF Continued pregabalin [Lyrica] 150 mg capsule See Rx Instructions PO BID Qty: 270 1RF Rx Instructions: 150 mg am and 300 mg HS calcium carbonate 600 mg calcium (1,500 mg) tablet 600 mg PO DAILY ascorbic acid (vitamin C) 1,000 mg tablet 1,000 mg PO DAILY cholecalciferol (vitamin D3) 25 mcg (1,000 unit) tablet 25 mcg PO DAILY tizanidine 4 mg tablet 4 mg PO BID PRN (Reason: muscle spasticity) Qty: 30 1RF sennosides-docusate sodium 8.6-50 mg tablet 2 tab-cap PO HS duloxetine 60 mg capsule,delayed release(DR/EC) 60 mg PO DAILY torsemide 20 mg tablet 40 mg PO DAILY insulin aspart U-100 [Novolog FlexPen U-100 Insulin] 100 unit/mL (3 mL) insulin pen 10 - 20 unit subcut TID atorvastatin 80 mg tablet 80 mg PO QPM Qty: 90 1RF zolpidem 10 mg tablet 10 mg PO HS PRN (Reason: insomnia) Qty: 90 1RF insulin glargine [Basaglar KwikPen U-100 Insulin] 100 unit/mL (3 mL) insulin pen 30 unit subcut BID Qty: 45 3RF Discontinued aspirin 325 mg tablet 325 mg PO DAILY Qty: 90 0RF No Action (DME) pen needle, diabetic [UltiCare Pen Needle] 31 gauge x 5/16 needle See Rx Instructions .Route Qty: 400 3RF Rx Instructions: QID (DME) Dexcom G7 Sensor Device See Rx Instructions .Route Qty: 9 3RF Rx Instructions: As directed (DME) Dexcom G7 Poison Information Specialist Misc See Rx Instructions .Route Qty: 1 0RF Rx Instructions: As directed Discharge Orders: Discharge Order (Routine); Ordered 07/20/25 Ordered By: Auer Huerta Patient Education: Metoprolol (By mouth), Spironolactone (By mouth), Apixaban (By mouth), A-fib (Atrial Fibrillation) (DC) Additional Instructions: New medications sent to [facility], there are THREE: 1. Metoprolol (helps keep your heart rate controlled), twice/day 2. Eliquis (blood thinner to prevent stroke), twice/day. You are STOPPING Aspirin since you're on this now. 3. Spironolactone (new diuiretic, you take this WITH your 40mg of Torsemide daily). Ziopatch on discharge. Activity Level: No Restrictions Discharge Diet: Heart Healthy (2 gm sodium, low fat) Follow Up Appointments: Dyllan Wagner MD [Primary Care Provider, Family Practice] - 07/24/25 3:45 pm Referral Note: Hospital follow up at [facility] 07/24 at 3:45pm Forms: [facility] Info Instructions
[2025-07-20] MEDS: PERFLUTREN LIPID MICROSPHERES 2 ML VIAL IVP (16:05)
--- NOTE | 2025-07-20 18:24 | PC.NURSE ---
The patient discharged back home with his s/o, all meds, ziopatch instruction and new medication instructions. All questions were answered. All of the patients belongings were sent home with him. Karen DARBY BSN
== END 2025-07-20 17:30 | disposition home or self-care (01) | DRG 281 ==
LOC: ED 13:10 → MEDSURG 16:04
PROVIDERS: Family Medicine; Admitting Provider Family Medicine; Emergency Provider Emergency Medicine; PCP Family Medicine; Visit Provider Family Medicine
DX: I48.91 Unspecified atrial fibrillation (principal); L97.929 Non-pressure chronic ulcer of unspecified part of left lower leg with unspecified severity; I21.A1 Myocardial infarction type 2; I95.9 Hypotension, unspecified; R79.89 Other specified abnormal findings of blood chemistry; R60.9 Edema, unspecified; E11.622 Type 2 diabetes mellitus with other skin ulcer; E11.610 Type 2 diabetes mellitus with diabetic neuropathic arthropathy; E11.40 Type 2 diabetes mellitus with diabetic neuropathy, unspecified; I73.9 Peripheral vascular disease, unspecified; I10 Essential (primary) hypertension; E78.2 Mixed hyperlipidemia; G89.29 Other chronic pain; F41.9 Anxiety disorder, unspecified; K59.09 Other constipation; Z79.4 Long term (current) use of insulin; Z79.82 Long term (current) use of aspirin; Z86.73 Personal history of transient ischemic attack (TIA), and cerebral infarction without residual deficits; Z87.891 Personal history of nicotine dependence; Z79.899 Other long term (current) drug therapy; Z85.46 Personal history of malignant neoplasm of prostate; Z89.412 Acquired absence of left great toe; Z89.421 Acquired absence of other right toe(s)
CPT/HCPCS: 36415; 71046; 80048; 80053; 81001; 82962; 83605; 84443; 84484; 85025; 85610; 85730; 87040; 93005; 93246; 93308; 93321; 93325; 97161; 97165; 97535; 99285; 99291; A9270; J0613; J1644; J1815; J3475; J3490; J7030; Q9957

== ENCOUNTER 2025-07-25 10:55 | Outpatient (CLI) | payer MEDICARE, BC, SELFPAY ==
--- NOTE | 2025-07-25 11:30 | CRLHL7_ITS ---
For Patients: As a result of the Century Cures Act, medical imaging exams and procedure reports are released immediately into your electronic medical record. You may view this report before your referring provider. If you have questions, please contact your health care provider. INDICATION: Known arterial insufficiency; peripheral vascular disease; re evaluation. COMPARISON: Duplex ultrasound evaluation arterial system both lower extremities 07/15/2021. TECHNIQUE: Duplex ultrasound evaluation arterial system both lower extremities; color Doppler duplex assessment; Doppler spectral analysis. FINDINGS: Right lower extremity: Common femoral artery 160 cm/second triphasic. Deep femoral artery 104 cm/second biphasic. Proximal SFA 134 cm/second triphasic. Mid SFA 104 cm/second triphasic. Distal SFA 79 cm/second triphasic. Proximal popliteal artery 68 cm/second biphasic. Peroneal artery 44 cm/sec monophasic. WIND OPERATIONS SUPERVISOR 25 cm/second monophasic. ESTEBAN 16 cm/second monophasic. DPA 10 cm/sec monophasic. Left lower extremity: Common femoral artery 189 cm/second triphasic. Deep femoral artery 88 cm/second triphasic. Proximal SFA 112 cm/second triphasic. Mid SFA 110 cm/second triphasic. Distal SFA 100 cm/second monophasic. Popliteal artery 76 cm/second biphasic. Peroneal artery 109 cm/sec monophasic. WIND OPERATIONS SUPERVISOR 41 cm/sec monophasic. ESTEBAN 151 cm/sec monophasic. DPA 64 cm/second monophasic. IMPRESSION: 1. Monophasic flow identified in the run-off vessels bilateral indicating significant trifurcation disease without any interval change. 2. Multiphasic flow identified elsewhere. 3. No inflow disease on either side. Dictated by Shen Whaley MD @ 07/25/2025 3:20:28 PM (Electronically Signed)
== END 2025-07-25 10:56 | disposition home or self-care (01) ==
PROVIDERS: PCP Family Medicine; Visit Provider Nurse Practitioner Family
DX: E11.621 Type 2 diabetes mellitus with foot ulcer (principal); E11.40 Type 2 diabetes mellitus with diabetic neuropathy, unspecified; M14.671 Charcot's joint, right ankle and foot; L97.511 Non-pressure chronic ulcer of other part of right foot limited to breakdown of skin; I73.9 Peripheral vascular disease, unspecified; L97.821 Non-pressure chronic ulcer of other part of left lower leg limited to breakdown of skin; Z79.4 Long term (current) use of insulin; Z79.84 Long term (current) use of oral hypoglycemic drugs
CPT/HCPCS: 93926; G0463

== ENCOUNTER 2025-08-01 10:56 | Outpatient (CLI) | payer BC, MEDICARE, SELFPAY | END 2025-08-01 10:57 | disposition home or self-care (01) | LOC: WOUND 10:57 | PROVIDERS: PCP Family Medicine; Visit Provider Nurse Practitioner Family | DX: I73.9 Peripheral vascular disease, unspecified (principal); E11.622 Type 2 diabetes mellitus with other skin ulcer; E11.40 Type 2 diabetes mellitus with diabetic neuropathy, unspecified; L97.822 Non-pressure chronic ulcer of other part of left lower leg with fat layer exposed; Z79.84 Long term (current) use of oral hypoglycemic drugs; Z79.4 Long term (current) use of insulin; L97.511 Non-pressure chronic ulcer of other part of right foot limited to breakdown of skin; E11.621 Type 2 diabetes mellitus with foot ulcer; L97.821 Non-pressure chronic ulcer of other part of left lower leg limited to breakdown of skin | CPT/HCPCS: 11042; G0463 ==